=== PATIENT | female | born 1970 | race Caucasian/White ===

== ENCOUNTER 2019-05-22 20:35 | Inpatient (IN) ==
[2019-05-22 21:32] LABS: Basophils # 0.2 10*3/uL (0.0-0.2); Basophils % 1.1 % (0.0-0.8); Eosinophils # 0.6 10*3/uL (0.0-0.87); Eosinophils % 3.1 % (0.00-10.9); Hematocrit 47.1 VOL% (35.7-47.0); Hemoglobin 15.1 GM/DL (12.0-16.0); Immature Granulocytes % 8.1 %; Immature Granulocytes Absolute 1.48 #; Lymphocytes # 5.9 10*3/uL (1.4-4.0); Lymphocytes % 32.1 % (21.3-54.2); Mean Corpuscular HGB Conc 32.1 GM/DL (32-36); Mean Corpuscular Volume 94.4 FL (87-102); Mean Platelet Volume 10.9 FL (9.6-12.0); Monocytes % 2.8 % (1.7-12.7); Neutrophils % 52.8 % (38.7-73.9); Platelet Count 291 T/CUMM (130-400); Red Blood Count 4.99 MC/CUMM (3.8-5.5); Red Cell Distribution Width 12.2 % (9.3-17.3); White Blood Count 18.3 T/CUMM (4-12)
[2019-05-22 21:41] LABS: PT Patient Result 11.2 SECS (9.6-12.2); Partial Thromboplastin Time 28.8 SECS (20.8-36.0)
[2019-05-22 21:49] LABS: ABG Base Excess -12.2 MMOL/L (-2.5-2.5); ABG HCO3 15.3 MMOL/L (20-26); ABG PCO2 43.7 MM HG (35-48); ABG TCO2 14.5 MMOL/L (23-27)
[2019-05-22 21:55] LABS: Alanine Aminotransferase 94 U/L (13-56); Albumin 2.7 G/DL (3.4-5.0); Alkaline Phosphatase 203 U/L (45-117); Aspartate Amino Transferase 152 U/L (0-37); Blood Urea Nitrogen 13 MG/DL (7-18); Calcium 9.3 MG/DL (8.5-10.1); Estimated Glom Filtration Rate 53 ML/MIN; Glucose 345 MG/DL (74-106); Osmolality,Calculated 294.3 MOS/KG (273-304); Total Protein 6.4 G/DL (6.4-8.3)
[2019-05-22 21:58] LABS: Band Neutrophils 8 % (0-10); Eosinophils 3 % (0-10); Lymphocytes 29 % (20-55); Platelet Estimate Adequate; Segmented Neutrophils 59 % (50-85); Total Cells Counted 100
[2019-05-22 22:00] LABS: Apearance,Urine CLOUDY (Clear); Bacteria,Urine Occasional /HPF (Few); Bilirubin,Urine Negative (Negative); Blood, Urine Moderate mg/dL (Negative); Glucose,Urine (UA) >=500 mg/dL (Negative); Hyaline Casts,Urine 1 /LPF (0-3); Ketones,Urine Negative (Negative); Nitrite,Urine Negative (Negative); Protein,Urine >=500 MG/DL; RBC,Urine 149 /HPF (0-4); Squamous Epithelial Cell,Urine Occasional /HPF (0-10); Urine Color Yellow (Yellow); Urine Urobilinogen < 2.0 EU/DL (0.2-1.0); WBC,Urine 22 /HPF (0-6)
[2019-05-22 22:05] LABS: Barbiturates Screen,Urine Negative (Negative); Benzodiazepines Screen,Urine Positive (Negative); Cannabinoid Screen,Urine Negative (Negative); Opiate Screen,Urine Negative (Negative); Phencyclidine Screen,Urine Negative (Negative)
[2019-05-22] MEDS ORDERED: PIPERACILLIN/TAZOBACTAM 3,375 MG in SODIUM CHLORIDE 0.9% 100 ML IV STA (22:10)
[2019-05-22 22:47] LABS: Allen Test Positive; Pt O2 Delivery Device Ventilator
[2019-05-22 22:48] LABS: ABG Base Excess -6.3 MMOL/L (-2.5-2.5); ABG HCO3 19.4 MMOL/L (20-26); ABG Oxygen Saturation 96.8 % (95-100); ABG PCO2 43.3 MM HG (35-48); ABG PH 7.284 (7.35-7.45); ABG PO2 97.8 MM HG (80-95); ABG TCO2 17.7 MMOL/L (23-27)
[2019-05-22 22:53] LABS: ABG PH 7.184 (7.35-7.45)
[2019-05-22 23:53] LABS: Troponin I 2.35 NG/ML (0.00-0.045)
[2019-05-23] MEDS: SODIUM CHLORIDE 0.9% 1,000 ML IV SCH ×2 (00:20→16:40)
[2019-05-23] MEDS ORDERED: ONDANSETRON 4 MG/2 ML VIAL IV PRN (00:50)
[2019-05-23] MEDS ORDERED: LORazepam 2 MG/1 ML VIAL IV ONE (01:35)
[2019-05-23] MEDS ORDERED: LORazepam 2 MG/1 ML VIAL ONE (01:35)
[2019-05-23] MEDS ORDERED: MAGNESIUM SULF RIDER 4 GM in PREMIX 1 EACH IV PRN (01:53)
[2019-05-23] MEDS ORDERED: SODIUM CHLORIDE IV ONE ×2 (02:13→03:00)
[2019-05-23] MEDS ORDERED: FOSPHENYTOIN IV ONE ×2 (02:13→03:00)
[2019-05-23] MEDS ORDERED: [UNRECOGNIZED DRUG - OTHER] IV ONE (02:13)
[2019-05-23] MEDS ORDERED: [UNRECOGNIZED DRUG - OTHER] IV ONE (03:00)
[2019-05-23 03:22] LABS: Basophils # 0.1 10*3/uL (0.0-0.2); Basophils % 0.3 % (0.0-0.8); Hematocrit 43.9 VOL% (35.7-47.0); Immature Granulocytes % 1.2 %; Immature Granulocytes Absolute 0.24 #; Lymphocytes # 0.7 10*3/uL (1.4-4.0); Lymphocytes % 3.3 % (21.3-54.2); Mean Corpuscular HGB Conc 34.2 GM/DL (32-36); Mean Corpuscular Volume 89.4 FL (87-102); Mean Platelet Volume 10.8 FL (9.6-12.0); Monocytes % 4.8 % (1.7-12.7); Neutrophils % 90.4 % (38.7-73.9); Platelet Count 257 T/CUMM (130-400); Red Blood Count 4.91 MC/CUMM (3.8-5.5); Red Cell Distribution Width 12.2 % (9.3-17.3); White Blood Count 20.1 T/CUMM (4-12)
[2019-05-23 03:43] LABS: Band Neutrophils 1 % (0-10); Lymphocytes 1 % (20-55); Platelet Estimate Normal; Segmented Neutrophils 93 % (50-85); Total Cells Counted 100
[2019-05-23 03:44] LABS: Microcytosis Slight
[2019-05-23 03:49] LABS: Albumin 3.1 G/DL (3.4-5.0); Bilirubin,Total 0.5 MG/DL (0.2-1.0); Calcium 8.6 MG/DL (8.5-10.1); Osmolality,Calculated 288.1 MOS/KG (273-304); Risk Ratio 2.93; Thyroid Stimulating Hormone 1.14 uIU/ml (0.358-3.74); Total Protein 6.9 G/DL (6.4-8.3); VLDL CHOLESTEROL 34.8 MG/DL
[2019-05-23] MEDS: ENOXAPARIN 100 MG/ML SYRINGE SUBCUT SCH ×2 (04:35→16:49)
[2019-05-23 04:54] LABS: ABG Base Excess -3.7 MMOL/L (-2.5-2.5); ABG HCO3 21.4 MMOL/L (20-26); ABG Oxygen Saturation 99.2 % (95-100); ABG PCO2 41.2 MM HG (35-48); ABG PH 7.336 (7.35-7.45); ABG TCO2 18.9 MMOL/L (23-27)
[2019-05-23] MEDS: MAGNESIUM SULF RIDER 2 GM in PREMIX 1 EACH IV PRN (06:33)
[2019-05-23] MEDS: POTASSIUM CHLORIDE RIDER 20 MEQ in PREMIX 1 EACH IV PRN (06:35)
[2019-05-23] MEDS: PIPERACILLIN/TAZOBACTAM 3,375 MG in SODIUM CHLORIDE 0.9% 100 ML IV SCH ×3 (06:47→21:39)
[2019-05-23] MEDS: PANTOPRAZOLE 40 MG VIAL IV SCH (08:44)
[2019-05-23] MEDS: POTASSIUM CHLORIDE RIDER 10 MEQ in PREMIX 1 EACH IV PRN (08:46)
[2019-05-23] MEDS ORDERED: FLUoxetine 10 MG CAPSULE PO SCH (09:00)
[2019-05-23] MEDS ORDERED: CLOPIDOGREL 300 MG TABLET PO ONE (11:10)
[2019-05-23] MEDS ORDERED: ASPIRIN 325 MG TABLET PO ONE (11:12)
[2019-05-23] MEDS ORDERED: DOPamine 800 MG/250 ML PREMIX IV PRN (11:22)
[2019-05-23] MEDS ORDERED: NOREPINEPHRINE 8 MG in SODIUM CHLORIDE 0.9% 242 ML IV PRN (11:22)
[2019-05-23] MEDS ORDERED: DEXTROSE 10% 1,000 ML BAG IV PRN (11:28)
[2019-05-23] MEDS ORDERED: GLUCAGON 1 MG VIAL IM PRN (11:28)
[2019-05-23] MEDS ORDERED: ASPIRIN 325 MG TABLET PO SCH (11:30)
[2019-05-23] MEDS: fentaNYL INJ 1,250 MCG in SODIUM CHLORIDE 0.9% 225 ML IV PRN ×2 (11:48→20:18)
[2019-05-23] MEDS: CISATRACURIUM 200 MG in SODIUM CHLORIDE 0.9% 180 ML IV SCH (11:48)
[2019-05-23] MEDS ORDERED: METOPROLOL TARTRATE 5 MG/5 ML VIAL IV SCH (12:00)
[2019-05-23 12:12] LABS: PT Patient Result 11.3 SECS (9.6-12.2); Partial Thromboplastin Time 32.2 SECS (20.8-36.0)
[2019-05-23] MEDS: INSULIN REGULAR 100 UNIT/ML IV SCH ×3 (12:20→20:21)
[2019-05-23 12:25] LABS: Bilirubin,Total 0.5 MG/DL (0.2-1.0); Calcium 8.3 MG/DL (8.5-10.1); Osmolality,Calculated 283.4 MOS/KG (273-304); Total Protein 6.4 G/DL (6.4-8.3)
[2019-05-23] MEDS: PHENYTOIN 100 MG/2 ML VIAL IV SCH ×2 (12:26→21:09)
[2019-05-23] MEDS: MINERAL OIL/PETROLATUM OPH OINT 3.5 GM TUBE BOTH EYES SCH ×2 (14:45→21:11)
[2019-05-23 17:43] LABS: Basophils # 0.1 10*3/uL (0.0-0.2); Basophils % 0.3 % (0.0-0.8); Eosinophils # 0.1 10*3/uL (0.0-0.87); Eosinophils % 0.4 % (0.00-10.9); Hematocrit 43.4 VOL% (35.7-47.0); Hemoglobin 14.6 GM/DL (12.0-16.0); Immature Granulocytes % 0.6 %; Lymphocytes # 2.4 10*3/uL (1.4-4.0); Lymphocytes % 13.5 % (21.3-54.2); Mean Corpuscular HGB Conc 33.6 GM/DL (32-36); Mean Platelet Volume 10.5 FL (9.6-12.0); Monocytes % 7.2 % (1.7-12.7); Platelet Count 279 T/CUMM (130-400); Red Blood Count 4.82 MC/CUMM (3.8-5.5); Red Cell Distribution Width 12.8 % (9.3-17.3); White Blood Count 17.6 T/CUMM (4-12)
[2019-05-23 17:48] LABS: PT Patient Result 11.2 SECS (9.6-12.2); Partial Thromboplastin Time 30.1 SECS (20.8-36.0)
[2019-05-23 17:52] LABS: Calcium 7.6 MG/DL (8.5-10.1); Osmolality,Calculated 285.3 MOS/KG (273-304)
[2019-05-23 17:58] LABS: CKMB % 4.4 %
[2019-05-23 18:00] LABS: Troponin I 4.28 NG/ML (0.00-0.045)
[2019-05-24 00:10] LABS: Troponin I 2.73 NG/ML (0.00-0.045)
[2019-05-24 00:30] LABS: INR 1.1; PT Patient Result 11.6 SECS (9.6-12.2); Partial Thromboplastin Time 35.5 SECS (20.8-36.0)
[2019-05-24 01:14] LABS: Calcium 7.4 MG/DL (8.5-10.1)
[2019-05-24] MEDS: POTASSIUM CHLORIDE RIDER 20 MEQ in PREMIX 1 EACH IV PRN ×2 (01:27→07:12)
[2019-05-24] MEDS: INSULIN REGULAR 100 UNIT/ML IV SCH ×8 (01:28→23:50)
[2019-05-24 01:33] LABS: Basophils % 0.4 % (0.0-0.8); Eosinophils # 0.2 10*3/uL (0.0-0.87); Eosinophils % 1.5 % (0.00-10.9); Hematocrit 39.2 VOL% (35.7-47.0); Hemoglobin 13.2 GM/DL (12.0-16.0); Immature Granulocytes % 0.6 %; Immature Granulocytes Absolute 0.07 #; Lymphocytes # 1.8 10*3/uL (1.4-4.0); Lymphocytes % 15.6 % (21.3-54.2); Mean Corpuscular HGB Conc 33.7 GM/DL (32-36); Mean Corpuscular Volume 90.1 FL (87-102); Mean Platelet Volume 11.4 FL (9.6-12.0); Monocytes % 8.1 % (1.7-12.7); Neutrophils % 73.8 % (38.7-73.9); Red Blood Count 4.35 MC/CUMM (3.8-5.5); Red Cell Distribution Width 12.7 % (9.3-17.3); White Blood Count 11.3 T/CUMM (4-12)
[2019-05-24 01:37] LABS: Platelet Count 186 T/CUMM (130-400)
[2019-05-24] MEDS: CISATRACURIUM 200 MG in SODIUM CHLORIDE 0.9% 180 ML IV SCH ×3 (01:43→18:12)
[2019-05-24] MEDS: SODIUM CHLORIDE 0.9% 1,000 ML IV SCH ×4 (01:43→21:28)
[2019-05-24] MEDS: fentaNYL INJ 1,250 MCG in SODIUM CHLORIDE 0.9% 225 ML IV PRN ×4 (02:33→17:02)
[2019-05-24] MEDS: ENOXAPARIN 100 MG/ML SYRINGE SUBCUT SCH ×2 (03:58→16:47)
[2019-05-24 04:19] LABS: Apearance,Urine CLOUDY (Clear); Bacteria,Urine Occasional /HPF (Few); Bilirubin,Urine Negative (Negative); Blood, Urine Small mg/dL (Negative); Glucose,Urine (UA) 50 mg/dL (Negative); Granular Casts,Urine 7 /LPF (0-1); Hyaline Casts,Urine 7 /LPF (0-3); Ketones,Urine Negative (Negative); Mucus,Urine Occasional /LPF (Occasional); Nitrite,Urine Negative (Negative); Protein,Urine 30 MG/DL; RBC,Urine 10 /HPF (0-4); Squamous Epithelial Cell,Urine Occasional /HPF (0-10); Urine Color Yellow (Yellow); Urine Specific Gravity 1.029 (1.001-1.035); Urine Urobilinogen < 2.0 EU/DL (0.2-1.0); WBC,Urine 12 /HPF (0-6)
[2019-05-24 04:29] LABS: ABG Base Excess -2.7 MMOL/L (-2.5-2.5); ABG HCO3 22.2 MMOL/L (20-26); ABG Oxygen Saturation 99.6 % (95-100); ABG PCO2 34.8 MM HG (35-48); ABG PH 7.398 (7.35-7.45); ABG TCO2 18.7 MMOL/L (23-27)
[2019-05-24 04:42] LABS: Basophils % 0.3 % (0.0-0.8); Eosinophils # 0.2 10*3/uL (0.0-0.87); Eosinophils % 2.3 % (0.00-10.9); Hematocrit 38.1 VOL% (35.7-47.0); Hemoglobin 12.8 GM/DL (12.0-16.0); Immature Granulocytes % 0.6 %; Immature Granulocytes Absolute 0.05 #; Lymphocytes # 1.6 10*3/uL (1.4-4.0); Lymphocytes % 17.3 % (21.3-54.2); Mean Corpuscular HGB Conc 33.6 GM/DL (32-36); Mean Corpuscular Volume 90.1 FL (87-102); Mean Platelet Volume 11.4 FL (9.6-12.0); Monocytes % 7.2 % (1.7-12.7); Neutrophils % 72.3 % (38.7-73.9); Platelet Count 151 T/CUMM (130-400); Red Blood Count 4.23 MC/CUMM (3.8-5.5); Red Cell Distribution Width 12.7 % (9.3-17.3); White Blood Count 9.1 T/CUMM (4-12)
[2019-05-24 05:13] LABS: Albumin 2.4 G/DL (3.4-5.0); Bilirubin,Total 0.5 MG/DL (0.2-1.0); Calcium 7.4 MG/DL (8.5-10.1); Osmolality,Calculated 289.7 MOS/KG (273-304); Total Protein 5.6 G/DL (6.4-8.3)
[2019-05-24] MEDS: PHENYTOIN 100 MG/2 ML VIAL IV SCH ×3 (05:16→20:32)
[2019-05-24] MEDS: PIPERACILLIN/TAZOBACTAM 3,375 MG in SODIUM CHLORIDE 0.9% 100 ML IV SCH ×3 (05:29→21:32)
[2019-05-24 06:20] LABS: INR 1.1; PT Patient Result 11.9 SECS (9.6-12.2); Partial Thromboplastin Time 39.5 SECS (20.8-36.0)
[2019-05-24 06:26] LABS: Basophils % 0.3 % (0.0-0.8); Eosinophils # 0.3 10*3/uL (0.0-0.87); Eosinophils % 3.2 % (0.00-10.9); Hematocrit 36.7 VOL% (35.7-47.0); Hemoglobin 12.6 GM/DL (12.0-16.0); Immature Granulocytes % 0.5 %; Immature Granulocytes Absolute 0.04 #; Lymphocytes # 1.6 10*3/uL (1.4-4.0); Lymphocytes % 18.2 % (21.3-54.2); Mean Corpuscular HGB Conc 34.3 GM/DL (32-36); Mean Corpuscular Volume 89.7 FL (87-102); Mean Platelet Volume 10.9 FL (9.6-12.0); Monocytes % 6.8 % (1.7-12.7); Platelet Count 171 T/CUMM (130-400); Red Blood Count 4.09 MC/CUMM (3.8-5.5); Red Cell Distribution Width 12.8 % (9.3-17.3); White Blood Count 8.6 T/CUMM (4-12)
[2019-05-24 06:39] LABS: CKMB % 5.2 %
[2019-05-24 06:41] LABS: Troponin I 2.3 NG/ML (0.00-0.045)
[2019-05-24 06:56] LABS: Calcium 7.5 MG/DL (8.5-10.1); Osmolality,Calculated 286.1 MOS/KG (273-304)
[2019-05-24] MEDS ORDERED: ASPIRIN 325 MG TABLET PO SCH (09:00)
[2019-05-24] MEDS: CLOPIDOGREL 75 MG TABLET PO SCH (09:13)
[2019-05-24] MEDS: ASPIRIN CHEW 81 MG TABLET PO SCH (09:13)
[2019-05-24] MEDS: PANTOPRAZOLE 40 MG VIAL IV SCH (09:18)
[2019-05-24] MEDS: MINERAL OIL/PETROLATUM OPH OINT 3.5 GM TUBE BOTH EYES SCH ×3 (09:22→20:38)
[2019-05-24 11:40] LABS: Basophils % 0.5 % (0.0-0.8); Eosinophils # 0.4 10*3/uL (0.0-0.87); Eosinophils % 4.1 % (0.00-10.9); Hematocrit 37.6 VOL% (35.7-47.0); Hemoglobin 12.5 GM/DL (12.0-16.0); Immature Granulocytes % 0.5 %; Immature Granulocytes Absolute 0.04 #; Lymphocytes # 1.3 10*3/uL (1.4-4.0); Lymphocytes % 14.6 % (21.3-54.2); Mean Corpuscular HGB Conc 33.2 GM/DL (32-36); Mean Platelet Volume 10.4 FL (9.6-12.0); Neutrophils % 73.3 % (38.7-73.9); Platelet Count 192 T/CUMM (130-400); Red Blood Count 4.13 MC/CUMM (3.8-5.5); Red Cell Distribution Width 12.8 % (9.3-17.3); White Blood Count 8.6 T/CUMM (4-12)
[2019-05-24 11:49] LABS: INR 1.1; PT Patient Result 11.4 SECS (9.6-12.2)
[2019-05-24 11:56] LABS: Partial Thromboplastin Time 41.9 SECS (20.8-36.0)
[2019-05-24 12:06] LABS: Calcium 7.3 MG/DL (8.5-10.1); Osmolality,Calculated 287.8 MOS/KG (273-304)
[2019-05-24] MEDS ORDERED: SODIUM CHLORIDE 0.9% 700 ML IV ONE (13:54)
[2019-05-24 17:34] LABS: Basophils # 0.1 10*3/uL (0.0-0.2); Basophils % 0.6 % (0.0-0.8); Eosinophils # 0.5 10*3/uL (0.0-0.87); Eosinophils % 4.4 % (0.00-10.9); Hematocrit 38.3 VOL% (35.7-47.0); Hemoglobin 12.8 GM/DL (12.0-16.0); Immature Granulocytes % 0.6 %; Immature Granulocytes Absolute 0.07 #; Lymphocytes # 1.5 10*3/uL (1.4-4.0); Lymphocytes % 13.3 % (21.3-54.2); Mean Corpuscular HGB Conc 33.4 GM/DL (32-36); Mean Platelet Volume 10.9 FL (9.6-12.0); Monocytes % 7.2 % (1.7-12.7); Neutrophils % 73.9 % (38.7-73.9); Platelet Count 230 T/CUMM (130-400); Red Blood Count 4.21 MC/CUMM (3.8-5.5); Red Cell Distribution Width 12.9 % (9.3-17.3); White Blood Count 10.9 T/CUMM (4-12)
[2019-05-24 17:40] LABS: Calcium 7.4 MG/DL (8.5-10.1); Osmolality,Calculated 285.1 MOS/KG (273-304)
[2019-05-24 17:41] LABS: INR 1.1; PT Patient Result 11.5 SECS (9.6-12.2)
[2019-05-24 17:45] LABS: Partial Thromboplastin Time 41.2 SECS (20.8-36.0)
[2019-05-24] MEDS ORDERED: SODIUM CHLORIDE 0.9% 250 ML IV ONE (18:00)
[2019-05-24] MEDS: fentaNYL INJ 2,500 MCG in SODIUM CHLORIDE 0.9% 500 ML IV PRN (20:30)
[2019-05-24] MEDS ORDERED: GLUCAGON 1 MG VIAL IM PRN (21:37)
[2019-05-24] MEDS ORDERED: DEXTROSE 50% 25 GM/50 ML VIAL IV PRN (21:37)
[2019-05-25 00:10] LABS: Basophils % 0.4 % (0.0-0.8); Eosinophils # 0.4 10*3/uL (0.0-0.87); Eosinophils % 3.4 % (0.00-10.9); Hematocrit 37.4 VOL% (35.7-47.0); Hemoglobin 12.3 GM/DL (12.0-16.0); Immature Granulocytes % 0.6 %; Immature Granulocytes Absolute 0.06 #; Lymphocytes % 9.3 % (21.3-54.2); Mean Corpuscular HGB Conc 32.9 GM/DL (32-36); Mean Corpuscular Volume 92.8 FL (87-102); Mean Platelet Volume 10.8 FL (9.6-12.0); Monocytes % 5.6 % (1.7-12.7); Neutrophils % 80.7 % (38.7-73.9); Platelet Count 205 T/CUMM (130-400); Red Blood Count 4.03 MC/CUMM (3.8-5.5); Red Cell Distribution Width 13.1 % (9.3-17.3); White Blood Count 10.3 T/CUMM (4-12)
[2019-05-25 00:17] LABS: INR 1.1; PT Patient Result 11.4 SECS (9.6-12.2)
[2019-05-25 00:24] LABS: Osmolality,Calculated 292.6 MOS/KG (273-304)
[2019-05-25] MEDS ORDERED: MAGNESIUM SULF RIDER 1 GM in PREMIX 1 EACH IV ONE ×2 (00:34→13:24)
[2019-05-25] MEDS: INSULIN REGULAR 100 UNIT/ML IV SCH ×3 (02:10→07:10)
[2019-05-25] MEDS: fentaNYL INJ 2,500 MCG in SODIUM CHLORIDE 0.9% 500 ML IV PRN (03:43)
[2019-05-25] MEDS: ENOXAPARIN 100 MG/ML SYRINGE SUBCUT SCH ×2 (04:00→16:58)
[2019-05-25 04:20] LABS: ABG Base Excess -7.7 MMOL/L (-2.5-2.5); ABG HCO3 18.3 MMOL/L (20-26); ABG Oxygen Saturation 97.8 % (95-100); ABG PCO2 42.1 MM HG (35-48); ABG PH 7.266 (7.35-7.45); ABG TCO2 17.2 MMOL/L (23-27)
[2019-05-25] MEDS: PHENYTOIN 100 MG/2 ML VIAL IV SCH ×3 (04:25→21:10)
[2019-05-25] MEDS ORDERED: SODIUM BICARBONATE 50 MEQ/50 ML VIAL IV ONE ×2 (04:32→04:42)
[2019-05-25] MEDS: PIPERACILLIN/TAZOBACTAM 3,375 MG in SODIUM CHLORIDE 0.9% 100 ML IV SCH ×3 (05:26→21:11)
[2019-05-25] MEDS: SODIUM CHLORIDE 0.9% 1,000 ML IV SCH ×4 (05:32→21:43)
[2019-05-25] MEDS ORDERED: GLUCAGON 1 MG VIAL IM PRN ×2 (06:16→06:35)
[2019-05-25] MEDS ORDERED: DEXTROSE 50% 25 GM/50 ML VIAL IV PRN ×2 (06:16→06:35)
[2019-05-25 06:34] LABS: ABG Base Excess -6.3 MMOL/L (-2.5-2.5); ABG HCO3 19.9 MMOL/L (20-26); ABG Oxygen Saturation 96.6 % (95-100); ABG PCO2 41.8 MM HG (35-48); ABG PH 7.295 (7.35-7.45); ABG PO2 95.6 MM HG (80-95); ABG TCO2 21.2 MMOL/L (23-27)
[2019-05-25 06:45] LABS: Basophils % 0.3 % (0.0-0.8); Eosinophils # 0.3 10*3/uL (0.0-0.87); Eosinophils % 3.3 % (0.00-10.9); Hemoglobin 11.9 GM/DL (12.0-16.0); Immature Granulocytes % 0.4 %; Immature Granulocytes Absolute 0.04 #; Lymphocytes # 0.8 10*3/uL (1.4-4.0); Lymphocytes % 9.3 % (21.3-54.2); Mean Corpuscular HGB Conc 33.1 GM/DL (32-36); Mean Corpuscular Volume 92.5 FL (87-102); Mean Platelet Volume 10.6 FL (9.6-12.0); Neutrophils % 81.7 % (38.7-73.9); Platelet Count 184 T/CUMM (130-400); Red Blood Count 3.89 MC/CUMM (3.8-5.5); Red Cell Distribution Width 13.2 % (9.3-17.3); White Blood Count 9.1 T/CUMM (4-12)
[2019-05-25 06:49] LABS: PT Patient Result 10.9 SECS (9.6-12.2); Partial Thromboplastin Time 40.8 SECS (20.8-36.0)
[2019-05-25 07:01] LABS: Bilirubin,Total 0.4 MG/DL (0.2-1.0); Calcium 7.2 MG/DL (8.5-10.1); Osmolality,Calculated 290.6 MOS/KG (273-304); Total Protein 5.2 G/DL (6.4-8.3)
[2019-05-25] MEDS: METOPROLOL TARTRATE 5 MG/5 ML VIAL IV SCH ×3 (07:34→17:16)
[2019-05-25 08:05] LABS: CKMB % 5.3 %
[2019-05-25 08:06] LABS: Troponin I 1.35 NG/ML (0.00-0.045)
[2019-05-25] MEDS: INSULIN REGULAR 100 UNIT/ML SUBCUT SCH ×4 (08:37→20:42)
[2019-05-25] MEDS ORDERED: FUROSEMIDE 40 MG/4 ML VIAL IV ONE (09:00)
[2019-05-25] MEDS: PANTOPRAZOLE 40 MG VIAL IV SCH (09:33)
[2019-05-25] MEDS: ASPIRIN CHEW 81 MG TABLET PO SCH (09:44)
[2019-05-25] MEDS: MINERAL OIL/PETROLATUM OPH OINT 3.5 GM TUBE BOTH EYES SCH ×3 (09:44→21:11)
[2019-05-25] MEDS: CLOPIDOGREL 75 MG TABLET PO SCH (09:44)
[2019-05-25] MEDS ORDERED: INSULIN REGULAR 100 UNIT/ML IV SCH (10:00)
[2019-05-25] MEDS ORDERED: INSULIN REGULAR 100 UNIT/ML SUBCUT SCH (10:00)
[2019-05-25 12:46] LABS: Calcium 7.7 MG/DL (8.5-10.1); Osmolality,Calculated 286.8 MOS/KG (273-304)
[2019-05-26] MEDS: METOPROLOL TARTRATE 5 MG/5 ML VIAL IV SCH ×4 (00:17→18:29)
[2019-05-26] MEDS: INSULIN REGULAR 100 UNIT/ML SUBCUT SCH ×6 (00:17→21:10)
[2019-05-26] MEDS ORDERED: NOREPINEPHRINE 8 MG in SODIUM CHLORIDE 0.9% 242 ML IV PRN (03:34)
[2019-05-26 03:36] LABS: ABG Base Excess -2.9 MMOL/L (-2.5-2.5); ABG HCO3 21.2 MMOL/L (20-26); ABG Oxygen Saturation 97.5 % (95-100); ABG PCO2 34.5 MM HG (35-48); ABG PH 7.406 (7.35-7.45); ABG PO2 98.3 MM HG (80-95); ABG TCO2 22.2 MMOL/L (23-27)
[2019-05-26 03:48] LABS: Basophils % 0.3 % (0.0-0.8); Eosinophils # 0.1 10*3/uL (0.0-0.87); Eosinophils % 1.4 % (0.00-10.9); Hematocrit 33.8 VOL% (35.7-47.0); Immature Granulocytes % 0.3 %; Immature Granulocytes Absolute 0.03 #; Mean Corpuscular HGB Conc 32.5 GM/DL (32-36); Mean Corpuscular Volume 92.6 FL (87-102); Mean Platelet Volume 10.7 FL (9.6-12.0); Monocytes % 6.9 % (1.7-12.7); Neutrophils % 80.1 % (38.7-73.9); Platelet Count 186 T/CUMM (130-400); Red Blood Count 3.65 MC/CUMM (3.8-5.5); Red Cell Distribution Width 13.1 % (9.3-17.3); White Blood Count 8.8 T/CUMM (4-12)
[2019-05-26 04:08] LABS: Albumin 2.1 G/DL (3.4-5.0); Bilirubin,Total 0.7 MG/DL (0.2-1.0); Calcium 7.7 MG/DL (8.5-10.1); Total Protein 5.5 G/DL (6.4-8.3)
[2019-05-26] MEDS: ENOXAPARIN 100 MG/ML SYRINGE SUBCUT SCH ×2 (04:08→16:57)
[2019-05-26] MEDS: PHENYTOIN 100 MG/2 ML VIAL IV SCH ×3 (04:08→21:41)
[2019-05-26] MEDS: POTASSIUM CHLORIDE RIDER 20 MEQ in PREMIX 1 EACH IV PRN ×2 (04:27→06:09)
[2019-05-26] MEDS: MAGNESIUM SULF RIDER 2 GM in PREMIX 1 EACH IV PRN (04:27)
[2019-05-26] MEDS ORDERED: SODIUM CHLORIDE 0.9% 500 ML IV ONE (05:06)
[2019-05-26] MEDS: SODIUM CHLORIDE 0.9% 1,000 ML IV SCH ×5 (05:21→22:39)
[2019-05-26] MEDS: PIPERACILLIN/TAZOBACTAM 3,375 MG in SODIUM CHLORIDE 0.9% 100 ML IV SCH ×3 (06:24→22:27)
[2019-05-26] MEDS ORDERED: FUROSEMIDE 40 MG/4 ML VIAL IV ONE (08:26)
[2019-05-26] MEDS: PANTOPRAZOLE 40 MG VIAL IV SCH (10:24)
[2019-05-26] MEDS: CLOPIDOGREL 75 MG TABLET PO SCH (10:40)
[2019-05-26] MEDS: ASPIRIN CHEW 81 MG TABLET PO SCH (10:40)
[2019-05-26] MEDS: MINERAL OIL/PETROLATUM OPH OINT 3.5 GM TUBE BOTH EYES SCH ×3 (10:40→21:42)
[2019-05-27] MEDS: INSULIN REGULAR 100 UNIT/ML SUBCUT SCH ×7 (00:37→23:54)
[2019-05-27] MEDS: METOPROLOL TARTRATE 5 MG/5 ML VIAL IV SCH ×5 (00:38→23:55)
[2019-05-27 05:15] LABS: ABG Base Excess 1.1 MMOL/L (-2.5-2.5); ABG HCO3 25.6 MMOL/L (20-26); ABG Oxygen Saturation 97.6 % (95-100); ABG PCO2 40.5 MM HG (35-48); ABG PH 7.419 (7.35-7.45); ABG PO2 107.5 MM HG (80-95); ABG TCO2 26.9 MMOL/L (23-27)
[2019-05-27 05:15] LABS: Basophils % 0.3 % (0.0-0.8); Eosinophils # 0.1 10*3/uL (0.0-0.87); Eosinophils % 1.4 % (0.00-10.9); Hematocrit 32.5 VOL% (35.7-47.0); Hemoglobin 10.6 GM/DL (12.0-16.0); Immature Granulocytes % 0.3 %; Immature Granulocytes Absolute 0.03 #; Lymphocytes # 0.9 10*3/uL (1.4-4.0); Lymphocytes % 10.8 % (21.3-54.2); Mean Corpuscular HGB Conc 32.6 GM/DL (32-36); Mean Corpuscular Volume 92.3 FL (87-102); Mean Platelet Volume 10.6 FL (9.6-12.0); Monocytes % 7.6 % (1.7-12.7); Neutrophils % 79.6 % (38.7-73.9); Platelet Count 182 T/CUMM (130-400); Red Blood Count 3.52 MC/CUMM (3.8-5.5); Red Cell Distribution Width 13.1 % (9.3-17.3); White Blood Count 8.6 T/CUMM (4-12)
[2019-05-27] MEDS: ENOXAPARIN 100 MG/ML SYRINGE SUBCUT SCH ×2 (05:26→15:35)
[2019-05-27] MEDS: PHENYTOIN 100 MG/2 ML VIAL IV SCH ×3 (05:27→21:20)
[2019-05-27 05:36] LABS: Calcium 8.2 MG/DL (8.5-10.1); Osmolality,Calculated 286.1 MOS/KG (273-304)
[2019-05-27] MEDS: SODIUM CHLORIDE 0.9% 1,000 ML IV SCH ×5 (05:45→22:22)
[2019-05-27 05:51] LABS: Prealbumin 9.1 MG/DL (20-40)
[2019-05-27] MEDS: POTASSIUM CHLORIDE RIDER 20 MEQ in PREMIX 1 EACH IV PRN (05:51)
[2019-05-27] MEDS: PIPERACILLIN/TAZOBACTAM 3,375 MG in SODIUM CHLORIDE 0.9% 100 ML IV SCH ×3 (06:28→21:20)
[2019-05-27] MEDS: CLOPIDOGREL 75 MG TABLET PO SCH (09:34)
[2019-05-27] MEDS: ASPIRIN CHEW 81 MG TABLET PO SCH (09:34)
[2019-05-27] MEDS: PANTOPRAZOLE 40 MG VIAL IV SCH (09:40)
[2019-05-27] MEDS: MINERAL OIL/PETROLATUM OPH OINT 3.5 GM TUBE BOTH EYES SCH ×3 (09:45→21:19)
[2019-05-27] MEDS ORDERED: LACTULOSE 20 GM/30 ML UDCUP PO ONE (10:23)
[2019-05-27] MEDS: POTASSIUM CHLORIDE RIDER 10 MEQ in PREMIX 1 EACH IV PRN (10:32)
[2019-05-27] MEDS: hydrALAZINE 20 MG/1 ML VIAL IV PRN (20:33)
[2019-05-27] MEDS: LACTULOSE 20 GM/30 ML UDCUP PO SCH ×2 (21:12→21:34)
[2019-05-28] MEDS: INSULIN REGULAR 100 UNIT/ML SUBCUT SCH ×5 (04:00→20:33)
[2019-05-28] MEDS: ENOXAPARIN 100 MG/ML SYRINGE SUBCUT SCH ×2 (04:29→16:32)
[2019-05-28] MEDS: PHENYTOIN 100 MG/2 ML VIAL IV SCH ×3 (04:29→21:14)
[2019-05-28 04:31] LABS: Basophils % 0.5 % (0.0-0.8); Eosinophils # 0.4 10*3/uL (0.0-0.87); Eosinophils % 5.1 % (0.00-10.9); Hematocrit 30.6 VOL% (35.7-47.0); Immature Granulocytes % 0.9 %; Immature Granulocytes Absolute 0.08 #; Lymphocytes # 1.3 10*3/uL (1.4-4.0); Lymphocytes % 15.7 % (21.3-54.2); Mean Corpuscular HGB Conc 32.7 GM/DL (32-36); Mean Corpuscular Volume 91.9 FL (87-102); Mean Platelet Volume 10.9 FL (9.6-12.0); Monocytes % 7.5 % (1.7-12.7); Neutrophils % 70.3 % (38.7-73.9); Platelet Count 165 T/CUMM (130-400); Red Blood Count 3.33 MC/CUMM (3.8-5.5); Red Cell Distribution Width 13.1 % (9.3-17.3); White Blood Count 8.5 T/CUMM (4-12)
[2019-05-28 04:35] LABS: ABG Base Excess 1.1 MMOL/L (-2.5-2.5); ABG HCO3 25.4 MMOL/L (20-26); ABG Oxygen Saturation 99.2 % (95-100); ABG PCO2 38.7 MM HG (35-48); ABG PH 7.424 (7.35-7.45)
[2019-05-28 04:40] LABS: Calcium 8.3 MG/DL (8.5-10.1); Osmolality,Calculated 290.7 MOS/KG (273-304)
[2019-05-28] MEDS: POTASSIUM CHLORIDE RIDER 20 MEQ in PREMIX 1 EACH IV PRN (04:53)
[2019-05-28] MEDS: SODIUM CHLORIDE 0.9% 1,000 ML IV SCH ×4 (06:14→23:20)
[2019-05-28] MEDS: METOPROLOL TARTRATE 5 MG/5 ML VIAL IV SCH ×4 (06:14→23:21)
[2019-05-28] MEDS: LACTULOSE 20 GM/30 ML UDCUP PO SCH ×2 (06:14→13:24)
[2019-05-28] MEDS: PIPERACILLIN/TAZOBACTAM 3,375 MG in SODIUM CHLORIDE 0.9% 100 ML IV SCH ×3 (06:14→21:15)
[2019-05-28] MEDS ORDERED: NON-FORMULARY MEDICATION (Dextroamphetamine-Amphetamine [Adderall] 20 MG) PO SCH (08:00)
[2019-05-28] MEDS: CLOPIDOGREL 75 MG TABLET PO SCH (08:58)
[2019-05-28] MEDS: ASPIRIN CHEW 81 MG TABLET PO SCH (08:58)
[2019-05-28] MEDS: MINERAL OIL/PETROLATUM OPH OINT 3.5 GM TUBE BOTH EYES SCH ×3 (08:59→21:15)
[2019-05-28] MEDS: PANTOPRAZOLE 40 MG VIAL IV SCH (08:59)
[2019-05-28] MEDS ORDERED: FUROSEMIDE 20 MG/2 ML VIAL IV ONE (13:48)
[2019-05-28 14:23] LABS: Bilirubin,Direct 0.22 MG/DL (0.0-0.20); Bilirubin,Indirect 0.2 MG/DL (0.0-1.0); Bilirubin,Total 0.4 MG/DL (0.2-1.0); Total Protein 5.5 G/DL (6.4-8.3)
[2019-05-28] MEDS: hydroCHLOROthiazide 25 MG TABLET NG SCH (14:56)
[2019-05-28] MEDS: MAGNESIUM SULF RIDER 2 GM in PREMIX 1 EACH IV PRN (14:56)
[2019-05-28] MEDS: lisinopriL 20 MG TABLET NG SCH (14:56)
[2019-05-28] MEDS: MORPHINE 4 MG/1 ML VIAL IV PRN (23:20)
[2019-05-29] MEDS: INSULIN REGULAR 100 UNIT/ML SUBCUT SCH ×6 (00:03→20:34)
[2019-05-29 04:30] LABS: ABG Base Excess 3.1 MMOL/L (-2.5-2.5); ABG HCO3 27.2 MMOL/L (20-26); ABG Oxygen Saturation 98.5 % (95-100); ABG PCO2 41.2 MM HG (35-48); ABG PH 7.435 (7.35-7.45); ABG TCO2 23.8 MMOL/L (23-27)
[2019-05-29 04:39] LABS: Basophils % 0.4 % (0.0-0.8); Eosinophils # 0.5 10*3/uL (0.0-0.87); Eosinophils % 6.7 % (0.00-10.9); Hematocrit 31.4 VOL% (35.7-47.0); Hemoglobin 10.3 GM/DL (12.0-16.0); Immature Granulocytes % 1.6 %; Immature Granulocytes Absolute 0.13 #; Lymphocytes # 1.3 10*3/uL (1.4-4.0); Lymphocytes % 16.1 % (21.3-54.2); Mean Corpuscular HGB Conc 32.8 GM/DL (32-36); Mean Corpuscular Volume 91.8 FL (87-102); Mean Platelet Volume 11.1 FL (9.6-12.0); Monocytes % 7.7 % (1.7-12.7); Neutrophils % 67.5 % (38.7-73.9); Platelet Count 184 T/CUMM (130-400); Red Blood Count 3.42 MC/CUMM (3.8-5.5); Red Cell Distribution Width 13.2 % (9.3-17.3); White Blood Count 7.9 T/CUMM (4-12)
[2019-05-29 04:56] LABS: Bilirubin,Total 0.4 MG/DL (0.2-1.0); Calcium 8.6 MG/DL (8.5-10.1); Osmolality,Calculated 282.3 MOS/KG (273-304); Total Protein 5.8 G/DL (6.4-8.3)
[2019-05-29] MEDS: MAGNESIUM SULF RIDER 2 GM in PREMIX 1 EACH IV PRN (05:30)
[2019-05-29] MEDS: POTASSIUM CHLORIDE RIDER 20 MEQ in PREMIX 1 EACH IV PRN ×3 (05:30→11:13)
[2019-05-29] MEDS: PHENYTOIN 100 MG/2 ML VIAL IV SCH ×3 (05:35→21:56)
[2019-05-29] MEDS: ENOXAPARIN 100 MG/ML SYRINGE SUBCUT SCH ×2 (05:35→16:00)
[2019-05-29] MEDS: METOPROLOL TARTRATE 5 MG/5 ML VIAL IV SCH ×3 (05:36→17:49)
[2019-05-29] MEDS: PIPERACILLIN/TAZOBACTAM 3,375 MG in SODIUM CHLORIDE 0.9% 100 ML IV SCH ×3 (05:36→21:57)
[2019-05-29] MEDS: SODIUM CHLORIDE 0.9% 1,000 ML IV SCH ×2 (07:52→15:14)
[2019-05-29] MEDS: PANTOPRAZOLE 40 MG VIAL IV SCH (07:57)
[2019-05-29] MEDS: hydroCHLOROthiazide 25 MG TABLET NG SCH (08:47)
[2019-05-29] MEDS: lisinopriL 20 MG TABLET NG SCH (08:47)
[2019-05-29] MEDS: ASPIRIN CHEW 81 MG TABLET PO SCH (08:47)
[2019-05-29] MEDS: MINERAL OIL/PETROLATUM OPH OINT 3.5 GM TUBE BOTH EYES SCH ×3 (08:48→21:57)
[2019-05-29] MEDS: CLOPIDOGREL 75 MG TABLET PO SCH (08:48)
[2019-05-29] MEDS ORDERED: FUROSEMIDE 20 MG/2 ML VIAL IV ONE (17:20)
[2019-05-29] MEDS: MORPHINE 4 MG/1 ML VIAL IV PRN (20:35)
[2019-05-30] MEDS: METOPROLOL TARTRATE 5 MG/5 ML VIAL IV SCH ×2 (00:07→05:23)
[2019-05-30] MEDS: INSULIN REGULAR 100 UNIT/ML SUBCUT SCH ×6 (00:07→21:20)
[2019-05-30 03:17] LABS: ABG Base Excess 4.3 MMOL/L (-2.5-2.5); ABG HCO3 28.3 MMOL/L (20-26); ABG PCO2 38.8 MM HG (35-48); ABG PH 7.469 (7.35-7.45); ABG PO2 93.5 MM HG (80-95); ABG TCO2 25.2 MMOL/L (23-27)
[2019-05-30 03:40] LABS: Calcium 8.5 MG/DL (8.5-10.1); Osmolality,Calculated 284.1 MOS/KG (273-304)
[2019-05-30 03:45] LABS: Prealbumin 17.3 MG/DL (20-40)
[2019-05-30 03:50] LABS: Basophils # 0.1 10*3/uL (0.0-0.2); Basophils % 0.5 % (0.0-0.8); Eosinophils # 0.5 10*3/uL (0.0-0.87); Eosinophils % 5.2 % (0.00-10.9); Hematocrit 32.5 VOL% (35.7-47.0); Hemoglobin 10.8 GM/DL (12.0-16.0); Immature Granulocytes % 1.7 %; Immature Granulocytes Absolute 0.17 #; Lymphocytes # 1.3 10*3/uL (1.4-4.0); Lymphocytes % 13.1 % (21.3-54.2); Mean Corpuscular HGB Conc 33.2 GM/DL (32-36); Mean Corpuscular Volume 92.3 FL (87-102); Monocytes % 8.1 % (1.7-12.7); Neutrophils % 71.4 % (38.7-73.9); Platelet Count 216 T/CUMM (130-400); Red Blood Count 3.52 MC/CUMM (3.8-5.5); Red Cell Distribution Width 13.2 % (9.3-17.3); White Blood Count 10.2 T/CUMM (4-12)
[2019-05-30] MEDS: ENOXAPARIN 100 MG/ML SYRINGE SUBCUT SCH ×2 (05:05→17:28)
[2019-05-30] MEDS: PHENYTOIN 100 MG/2 ML VIAL IV SCH ×3 (05:22→20:05)
[2019-05-30] MEDS: PIPERACILLIN/TAZOBACTAM 3,375 MG in SODIUM CHLORIDE 0.9% 100 ML IV SCH ×2 (05:23→13:15)
[2019-05-30] MEDS: POTASSIUM CHLORIDE RIDER 20 MEQ in PREMIX 1 EACH IV PRN (05:24)
[2019-05-30] MEDS: MAGNESIUM SULF RIDER 2 GM in PREMIX 1 EACH IV PRN (05:24)
[2019-05-30] MEDS: PANTOPRAZOLE 40 MG VIAL IV SCH (07:59)
[2019-05-30] MEDS: MORPHINE 4 MG/1 ML VIAL IV PRN ×5 (08:05→23:48)
[2019-05-30] MEDS: lisinopriL 20 MG TABLET NG SCH (08:08)
[2019-05-30] MEDS: ASPIRIN CHEW 81 MG TABLET PO SCH (08:08)
[2019-05-30] MEDS: CLOPIDOGREL 75 MG TABLET PO SCH (08:08)
[2019-05-30] MEDS: hydroCHLOROthiazide 25 MG TABLET NG SCH (08:08)
[2019-05-30] MEDS: MINERAL OIL/PETROLATUM OPH OINT 3.5 GM TUBE BOTH EYES SCH ×3 (08:09→20:06)
[2019-05-30] MEDS: METOPROLOL TARTRATE 25 MG TABLET PO SCH ×2 (08:23→20:05)
[2019-05-30] MEDS: hydrALAZINE 20 MG/1 ML VIAL IV PRN ×2 (15:08→19:44)
[2019-05-31] MEDS: INSULIN REGULAR 100 UNIT/ML SUBCUT SCH ×6 (00:32→20:37)
[2019-05-31] MEDS: ENOXAPARIN 100 MG/ML SYRINGE SUBCUT SCH ×2 (03:02→16:52)
[2019-05-31] MEDS: PHENYTOIN 100 MG/2 ML VIAL IV SCH ×3 (04:13→21:38)
[2019-05-31 06:00] LABS: ABG HCO3 27.1 MMOL/L (20-26); ABG Oxygen Saturation 98.3 % (95-100); ABG PCO2 37.5 MM HG (35-48); ABG PH 7.461 (7.35-7.45); ABG TCO2 23.5 MMOL/L (23-27)
[2019-05-31 06:35] LABS: Calcium 9.3 MG/DL (8.5-10.1); Osmolality,Calculated 285.3 MOS/KG (273-304)
[2019-05-31] MEDS: PANTOPRAZOLE 40 MG VIAL IV SCH (07:35)
[2019-05-31] MEDS: MORPHINE 4 MG/1 ML VIAL IV PRN ×4 (07:36→16:52)
[2019-05-31] MEDS: hydroCHLOROthiazide 25 MG TABLET NG SCH (09:16)
[2019-05-31] MEDS: METOPROLOL TARTRATE 25 MG TABLET PO SCH ×2 (09:17→21:38)
[2019-05-31] MEDS: lisinopriL 20 MG TABLET NG SCH (09:17)
[2019-05-31] MEDS: ASPIRIN CHEW 81 MG TABLET PO SCH (09:17)
[2019-05-31] MEDS: MINERAL OIL/PETROLATUM OPH OINT 3.5 GM TUBE BOTH EYES SCH ×3 (09:17→21:38)
[2019-05-31] MEDS: ACETAMINOPHEN 325 MG TABLET PO PRN (22:16)
[2019-06-01] MEDS: INSULIN REGULAR 100 UNIT/ML SUBCUT SCH ×6 (01:36→20:53)
[2019-06-01] MEDS: ENOXAPARIN 100 MG/ML SYRINGE SUBCUT SCH (05:28)
[2019-06-01] MEDS: PHENYTOIN 100 MG/2 ML VIAL IV SCH ×3 (05:28→20:54)
[2019-06-01 05:35] LABS: ABG Base Excess 2.4 MMOL/L (-2.5-2.5); ABG HCO3 26.5 MMOL/L (20-26); ABG Oxygen Saturation 97.2 % (95-100); ABG PH 7.449 (7.35-7.45); ABG PO2 88.2 MM HG (80-95); ABG TCO2 22.5 MMOL/L (23-27)
[2019-06-01 06:10] LABS: Basophils # 0.1 10*3/uL (0.0-0.2); Basophils % 0.6 % (0.0-0.8); Eosinophils # 0.4 10*3/uL (0.0-0.87); Eosinophils % 2.7 % (0.00-10.9); Hematocrit 38.2 VOL% (35.7-47.0); Hemoglobin 12.6 GM/DL (12.0-16.0); Immature Granulocytes % 2.2 %; Immature Granulocytes Absolute 0.35 #; Lymphocytes # 1.4 10*3/uL (1.4-4.0); Lymphocytes % 8.5 % (21.3-54.2); Mean Corpuscular Volume 92.9 FL (87-102); Mean Platelet Volume 11.1 FL (9.6-12.0); Monocytes % 6.4 % (1.7-12.7); Neutrophils % 79.6 % (38.7-73.9); Platelet Count 314 T/CUMM (130-400); Red Blood Count 4.11 MC/CUMM (3.8-5.5); Red Cell Distribution Width 13.5 % (9.3-17.3); White Blood Count 16.2 T/CUMM (4-12)
[2019-06-01 06:25] LABS: Calcium 9.5 MG/DL (8.5-10.1); Osmolality,Calculated 283.4 MOS/KG (273-304)
[2019-06-01] MEDS: ASPIRIN CHEW 81 MG TABLET PO SCH (09:28)
[2019-06-01] MEDS: PANTOPRAZOLE 40 MG VIAL IV SCH (09:28)
[2019-06-01] MEDS: hydroCHLOROthiazide 25 MG TABLET NG SCH (09:28)
[2019-06-01] MEDS: MINERAL OIL/PETROLATUM OPH OINT 3.5 GM TUBE BOTH EYES SCH ×3 (09:29→20:54)
[2019-06-01] MEDS: METOPROLOL TARTRATE 50 MG TABLET PO SCH ×2 (09:29→20:54)
[2019-06-01] MEDS: lisinopriL 20 MG TABLET NG SCH (09:29)
[2019-06-01] MEDS: ACETAMINOPHEN 325 MG TABLET PO PRN (17:45)
[2019-06-02] MEDS: INSULIN REGULAR 100 UNIT/ML SUBCUT SCH ×6 (00:06→20:08)
[2019-06-02] MEDS: ACETAMINOPHEN 325 MG TABLET PO PRN (00:19)
[2019-06-02 04:31] LABS: Basophils # 0.1 10*3/uL (0.0-0.2); Basophils % 0.6 % (0.0-0.8); Eosinophils # 0.5 10*3/uL (0.0-0.87); Eosinophils % 2.6 % (0.00-10.9); Hemoglobin 12.9 GM/DL (12.0-16.0); Immature Granulocytes % 2.5 %; Immature Granulocytes Absolute 0.47 #; Lymphocytes # 1.6 10*3/uL (1.4-4.0); Lymphocytes % 8.3 % (21.3-54.2); Mean Corpuscular HGB Conc 33.1 GM/DL (32-36); Mean Corpuscular Volume 92.4 FL (87-102); Mean Platelet Volume 11.1 FL (9.6-12.0); Monocytes % 6.8 % (1.7-12.7); Neutrophils % 79.2 % (38.7-73.9); Platelet Count 417 T/CUMM (130-400); Red Blood Count 4.22 MC/CUMM (3.8-5.5); Red Cell Distribution Width 13.6 % (9.3-17.3); White Blood Count 18.6 T/CUMM (4-12)
[2019-06-02 04:42] LABS: Calcium 9.7 MG/DL (8.5-10.1)
[2019-06-02 04:45] LABS: ABG Base Excess 3.4 MMOL/L (-2.5-2.5); ABG Oxygen Saturation 96.9 % (95-100); ABG PCO2 37.6 MM HG (35-48); ABG PH 7.474 (7.35-7.45); ABG PO2 90.3 MM HG (80-95); ABG TCO2 28.2 MMOL/L (23-27); Allen Test Positive; Pt O2 Delivery Device Ventilator
[2019-06-02 04:51] LABS: Prealbumin 23.4 MG/DL (20-40)
[2019-06-02] MEDS: PHENYTOIN 100 MG/2 ML VIAL IV SCH ×3 (05:05→20:25)
[2019-06-02] MEDS: PANTOPRAZOLE 40 MG VIAL IV SCH (07:44)
[2019-06-02] MEDS ORDERED: LACTATED RINGERS 1,000 ML IV SCH (08:00)
[2019-06-02] MEDS ORDERED: ceFAZolin 1,000 MG in SYRINGE 1 EACH IV ONE (08:00)
[2019-06-02] MEDS: MINERAL OIL/PETROLATUM OPH OINT 3.5 GM TUBE BOTH EYES SCH ×3 (10:18→20:25)
[2019-06-02 10:23] LABS: Apearance,Urine CLOUDY (Clear); Bacteria,Urine Many /HPF (Few); Bilirubin,Urine Negative (Negative); Blood, Urine Large mg/dL (Negative); Glucose,Urine (UA) Negative (Negative); Ketones,Urine Negative (Negative); Mucus,Urine Many /LPF (Occasional); Nitrite,Urine Positive (Negative); Protein,Urine 100 MG/DL; RBC,Urine 54 /HPF (0-4); Urine Color Yellow (Yellow); Urine Specific Gravity 1.025 (1.001-1.035); Urine Urobilinogen < 2.0 EU/DL (0.2-1.0); WBC,Urine 309 /HPF (0-6)
[2019-06-02] MEDS: ASPIRIN CHEW 81 MG TABLET PO SCH (12:31)
[2019-06-02] MEDS: METOPROLOL TARTRATE 50 MG TABLET PO SCH ×2 (12:32→20:25)
[2019-06-02] MEDS: hydroCHLOROthiazide 25 MG TABLET NG SCH (13:17)
[2019-06-02] MEDS: lisinopriL 20 MG TABLET NG SCH (13:17)
[2019-06-03] MEDS: INSULIN REGULAR 100 UNIT/ML SUBCUT SCH ×6 (00:25→20:25)
[2019-06-03 04:22] LABS: Allen Test Positive; Pt O2 Delivery Device Ventilator
[2019-06-03 04:23] LABS: ABG Base Excess 3.9 MMOL/L (-2.5-2.5); ABG HCO3 27.8 MMOL/L (20-26); ABG Oxygen Saturation 97.3 % (95-100); ABG PCO2 40.7 MM HG (35-48); ABG PH 7.448 (7.35-7.45); ABG PO2 87.4 MM HG (80-95); ABG TCO2 24.6 MMOL/L (23-27)
[2019-06-03 04:29] LABS: Basophils # 0.1 10*3/uL (0.0-0.2); Basophils % 0.8 % (0.0-0.8); Eosinophils # 0.4 10*3/uL (0.0-0.87); Eosinophils % 2.8 % (0.00-10.9); Hematocrit 38.1 VOL% (35.7-47.0); Hemoglobin 12.2 GM/DL (12.0-16.0); Immature Granulocytes % 2.8 %; Immature Granulocytes Absolute 0.45 #; Lymphocytes # 1.8 10*3/uL (1.4-4.0); Lymphocytes % 11.1 % (21.3-54.2); Mean Corpuscular Volume 93.6 FL (87-102); Mean Platelet Volume 10.9 FL (9.6-12.0); Neutrophils % 74.5 % (38.7-73.9); Platelet Count 486 T/CUMM (130-400); Red Blood Count 4.07 MC/CUMM (3.8-5.5); Red Cell Distribution Width 13.6 % (9.3-17.3); White Blood Count 15.9 T/CUMM (4-12)
[2019-06-03 04:41] LABS: Calcium 9.8 MG/DL (8.5-10.1)
[2019-06-03] MEDS: PHENYTOIN 100 MG/2 ML VIAL IV SCH ×3 (05:32→20:26)
[2019-06-03] MEDS ORDERED: ceFAZolin 1,000 MG in SYRINGE 1 EACH IV ONE (08:00)
[2019-06-03] MEDS ORDERED: LACTATED RINGERS 1,000 ML IV SCH (08:00)
[2019-06-03] MEDS: MINERAL OIL/PETROLATUM OPH OINT 3.5 GM TUBE BOTH EYES SCH ×3 (08:30→20:26)
[2019-06-03] MEDS: PANTOPRAZOLE 40 MG VIAL IV SCH (10:08)
[2019-06-03] MEDS ORDERED: BUPIVACAINE MPF 0.25% 30 ML VIAL ONE (10:40)
[2019-06-03] MEDS ORDERED: LIDOCAINE 1%/EPI INJ 20 ML VIAL ONE (10:40)
[2019-06-03] MEDS ORDERED: FUROSEMIDE 40 MG/4 ML VIAL IV ONE (10:44)
[2019-06-03] MEDS: ALBUTEROL 2.5 MG/3 ML NEB RESP TX PRN (10:45)
[2019-06-03] MEDS ORDERED: LIDOCAINE 2% 5 ML VIAL ONE (12:11)
[2019-06-03] MEDS ORDERED: fentaNYL 100 MCG/2 ML VIAL ONE (12:11)
[2019-06-03] MEDS ORDERED: propofoL 200 MG/20 ML VIAL IV ONE (12:11)
[2019-06-03] MEDS ORDERED: SEVOFLURANE 1 UNIT/15 MINUTE INH ONE (12:11)
[2019-06-03] MEDS ORDERED: ONDANSETRON 4 MG/2 ML VIAL ONE (12:12)
[2019-06-03] MEDS ORDERED: ROCURONIUM 100 MG/10 ML VIAL IV ONE (12:12)
[2019-06-03] MEDS ORDERED: PHENYLEPHRINE 10 MG/1 ML VIAL IV ONE (12:12)
[2019-06-03] MEDS ORDERED: MIDAZOLAM 2 MG/2 ML VIAL ONE (12:12)
[2019-06-03] MEDS: METOPROLOL TARTRATE 50 MG TABLET PO SCH ×2 (12:40→20:26)
[2019-06-03] MEDS: hydroCHLOROthiazide 25 MG TABLET NG SCH (15:23)
[2019-06-03] MEDS: ASPIRIN CHEW 81 MG TABLET PO SCH (15:23)
[2019-06-03] MEDS: lisinopriL 20 MG TABLET NG SCH (15:23)
[2019-06-03] MEDS: LEVOFLOXACIN INJ 750 MG in PREMIX 1 EACH IV SCH (15:53)
[2019-06-03 16:07] LABS: Apearance,Urine Slightly Hazy (Clear); Bacteria,Urine Occasional /HPF (Few); Bilirubin,Urine Negative (Negative); Blood, Urine Large mg/dL (Negative); Glucose,Urine (UA) Negative (Negative); Hyaline Casts,Urine 1 /LPF (0-3); Ketones,Urine Negative (Negative); Mucus,Urine Occasional /LPF (Occasional); Nitrite,Urine Negative (Negative); Protein,Urine Negative; RBC,Urine 499 /HPF (0-4); Squamous Epithelial Cell,Urine Occasional /HPF (0-10); Urine Color Yellow (Yellow); Urine Specific Gravity 1.014 (1.001-1.035); Urine Urobilinogen < 2.0 EU/DL (0.2-1.0); WBC,Urine 12 /HPF (0-6)
[2019-06-04] MEDS: INSULIN REGULAR 100 UNIT/ML SUBCUT SCH ×6 (00:37→20:28)
[2019-06-04 03:47] LABS: ABG Base Excess 3.7 MMOL/L (-2.5-2.5); ABG HCO3 27.7 MMOL/L (20-26); ABG Oxygen Saturation 97.9 % (95-100); ABG PCO2 39.7 MM HG (35-48); ABG PH 7.454 (7.35-7.45); ABG PO2 93.1 MM HG (80-95); ABG TCO2 24.3 MMOL/L (23-27)
[2019-06-04] MEDS: MORPHINE 4 MG/1 ML VIAL IV PRN (04:10)
[2019-06-04 04:24] LABS: Basophils # 0.2 10*3/uL (0.0-0.2); Basophils % 0.8 % (0.0-0.8); Eosinophils # 0.2 10*3/uL (0.0-0.87); Eosinophils % 1.3 % (0.00-10.9); Hematocrit 39.4 VOL% (35.7-47.0); Hemoglobin 12.3 GM/DL (12.0-16.0); Immature Granulocytes % 2.7 %; Immature Granulocytes Absolute 0.48 #; Lymphocytes # 1.5 10*3/uL (1.4-4.0); Lymphocytes % 8.1 % (21.3-54.2); Mean Corpuscular HGB Conc 31.2 GM/DL (32-36); Mean Corpuscular Volume 96.6 FL (87-102); Mean Platelet Volume 10.6 FL (9.6-12.0); Monocytes % 7.5 % (1.7-12.7); Neutrophils % 79.6 % (38.7-73.9); Platelet Count 509 T/CUMM (130-400); Red Blood Count 4.08 MC/CUMM (3.8-5.5); Red Cell Distribution Width 13.7 % (9.3-17.3); White Blood Count 17.8 T/CUMM (4-12)
[2019-06-04 04:45] LABS: Calcium 9.1 MG/DL (8.5-10.1); Osmolality,Calculated 291.7 MOS/KG (273-304)
[2019-06-04] MEDS: PHENYTOIN 100 MG/2 ML VIAL IV SCH ×3 (06:25→20:35)
[2019-06-04] MEDS: PANTOPRAZOLE 40 MG VIAL IV SCH (08:53)
[2019-06-04] MEDS: METOPROLOL TARTRATE 50 MG TABLET PO SCH ×2 (08:55→20:36)
[2019-06-04] MEDS: MINERAL OIL/PETROLATUM OPH OINT 3.5 GM TUBE BOTH EYES SCH ×3 (08:55→20:36)
[2019-06-04] MEDS: hydroCHLOROthiazide 25 MG TABLET NG SCH (08:55)
[2019-06-04] MEDS: lisinopriL 20 MG TABLET NG SCH (08:55)
[2019-06-04] MEDS: ASPIRIN CHEW 81 MG TABLET PO SCH (08:55)
[2019-06-04] MEDS ORDERED: LACTULOSE 20 GM/30 ML UDCUP PO PRN (14:12)
[2019-06-04] MEDS: LEVOFLOXACIN INJ 750 MG in PREMIX 1 EACH IV SCH (15:00)
[2019-06-05] MEDS: INSULIN REGULAR 100 UNIT/ML SUBCUT SCH ×6 (01:22→23:59)
[2019-06-05 03:21] LABS: ABG Base Excess 2.3 MMOL/L (-2.5-2.5); ABG HCO3 26.2 MMOL/L (20-26); ABG Oxygen Saturation 96.7 % (95-100); ABG PH 7.456 (7.35-7.45); ABG PO2 86.4 MM HG (80-95); ABG TCO2 27.3 MMOL/L (23-27); Allen Test Positive; Pt O2 Delivery Device Ventilator
[2019-06-05 05:06] LABS: Basophils # 0.1 10*3/uL (0.0-0.2); Basophils % 0.8 % (0.0-0.8); Eosinophils # 0.3 10*3/uL (0.0-0.87); Eosinophils % 1.9 % (0.00-10.9); Hematocrit 39.1 VOL% (35.7-47.0); Hemoglobin 12.2 GM/DL (12.0-16.0); Immature Granulocytes % 2.2 %; Immature Granulocytes Absolute 0.35 #; Lymphocytes # 1.5 10*3/uL (1.4-4.0); Lymphocytes % 9.6 % (21.3-54.2); Mean Corpuscular HGB Conc 31.2 GM/DL (32-36); Mean Corpuscular Volume 96.3 FL (87-102); Mean Platelet Volume 10.8 FL (9.6-12.0); Monocytes % 8.7 % (1.7-12.7); Neutrophils % 76.8 % (38.7-73.9); Platelet Count 542 T/CUMM (130-400); Red Blood Count 4.06 MC/CUMM (3.8-5.5); Red Cell Distribution Width 13.4 % (9.3-17.3); White Blood Count 15.6 T/CUMM (4-12)
[2019-06-05 05:20] LABS: Calcium 9.5 MG/DL (8.5-10.1); Osmolality,Calculated 299.4 MOS/KG (273-304)
[2019-06-05] MEDS: PHENYTOIN 100 MG/2 ML VIAL IV SCH ×3 (06:09→22:05)
[2019-06-05] MEDS: hydroCHLOROthiazide 25 MG TABLET NG SCH (08:48)
[2019-06-05] MEDS: lisinopriL 20 MG TABLET NG SCH (08:48)
[2019-06-05] MEDS: METOPROLOL TARTRATE 50 MG TABLET PO SCH ×2 (08:48→21:59)
[2019-06-05] MEDS: PANTOPRAZOLE 40 MG VIAL IV SCH (08:49)
[2019-06-05] MEDS: ASPIRIN CHEW 81 MG TABLET PO SCH (08:49)
[2019-06-05] MEDS: MINERAL OIL/PETROLATUM OPH OINT 3.5 GM TUBE BOTH EYES SCH ×3 (08:54→22:06)
[2019-06-05] MEDS: MEROPENEM 500 MG in SODIUM CHLORIDE 0.9% 100 ML IV SCH ×3 (10:55→22:06)
[2019-06-06 03:41] LABS: ABG Base Excess 3.4 MMOL/L (-2.5-2.5); ABG HCO3 27.7 MMOL/L (20-26); ABG Oxygen Saturation 97.7 % (95-100); ABG PCO2 41.1 MM HG (35-48); ABG PH 7.447 (7.35-7.45); ABG PO2 103.2 MM HG (80-95); Allen Test Positive; Pt O2 Delivery Device Ventilator
[2019-06-06] MEDS: MEROPENEM 500 MG in SODIUM CHLORIDE 0.9% 100 ML IV SCH ×4 (03:46→20:11)
[2019-06-06 04:45] LABS: Basophils # 0.1 10*3/uL (0.0-0.2); Basophils % 0.7 % (0.0-0.8); Eosinophils # 0.4 10*3/uL (0.0-0.87); Eosinophils % 2.7 % (0.00-10.9); Hematocrit 38.4 VOL% (35.7-47.0); Immature Granulocytes % 2.1 %; Immature Granulocytes Absolute 0.34 #; Lymphocytes # 1.8 10*3/uL (1.4-4.0); Lymphocytes % 11.3 % (21.3-54.2); Mean Corpuscular HGB Conc 31.3 GM/DL (32-36); Mean Corpuscular Volume 96.2 FL (87-102); Mean Platelet Volume 11.1 FL (9.6-12.0); Monocytes % 9.2 % (1.7-12.7); Platelet Count 514 T/CUMM (130-400); Red Blood Count 3.99 MC/CUMM (3.8-5.5); Red Cell Distribution Width 13.5 % (9.3-17.3); White Blood Count 15.8 T/CUMM (4-12)
[2019-06-06 04:59] LABS: Calcium 10.1 MG/DL (8.5-10.1); Osmolality,Calculated 299.7 MOS/KG (273-304)
[2019-06-06] MEDS: INSULIN REGULAR 100 UNIT/ML SUBCUT SCH ×4 (05:05→23:15)
[2019-06-06 05:10] LABS: Prealbumin 27.1 MG/DL (20-40)
[2019-06-06] MEDS: PHENYTOIN 100 MG/2 ML VIAL IV SCH ×3 (05:15→20:11)
[2019-06-06] MEDS: PANTOPRAZOLE 40 MG VIAL IV SCH (08:09)
[2019-06-06] MEDS: MINERAL OIL/PETROLATUM OPH OINT 3.5 GM TUBE BOTH EYES SCH ×3 (08:14→20:12)
[2019-06-06] MEDS: hydroCHLOROthiazide 25 MG TABLET NG SCH (08:14)
[2019-06-06] MEDS: ASPIRIN CHEW 81 MG TABLET PO SCH (08:14)
[2019-06-06] MEDS: METOPROLOL TARTRATE 50 MG TABLET PO SCH ×2 (08:14→20:11)
[2019-06-06] MEDS: lisinopriL 20 MG TABLET NG SCH (08:14)
[2019-06-07] MEDS: MEROPENEM 500 MG in SODIUM CHLORIDE 0.9% 100 ML IV SCH ×4 (03:58→21:27)
[2019-06-07] MEDS: PHENYTOIN 100 MG/2 ML VIAL IV SCH ×3 (04:01→21:34)
[2019-06-07 04:13] LABS: ABG Base Excess 4.1 MMOL/L (-2.5-2.5); ABG HCO3 27.6 MMOL/L (20-26); ABG Oxygen Saturation 92.4 % (95-100); ABG PCO2 37.7 MM HG (35-48); ABG PH 7.483 (7.35-7.45); ABG PO2 60.8 MM HG (80-95); ABG TCO2 28.8 MMOL/L (23-27); Allen Test Positive; Pt O2 Delivery Device Ventilator
[2019-06-07 05:17] LABS: Basophils # 0.1 10*3/uL (0.0-0.2); Basophils % 0.6 % (0.0-0.8); Eosinophils # 0.4 10*3/uL (0.0-0.87); Eosinophils % 2.7 % (0.00-10.9); Hemoglobin 12.4 GM/DL (12.0-16.0); Immature Granulocytes % 1.6 %; Immature Granulocytes Absolute 0.26 #; Lymphocytes # 1.9 10*3/uL (1.4-4.0); Lymphocytes % 12.2 % (21.3-54.2); Mean Corpuscular HGB Conc 31.8 GM/DL (32-36); Mean Corpuscular Volume 94.7 FL (87-102); Mean Platelet Volume 11.4 FL (9.6-12.0); Monocytes % 7.7 % (1.7-12.7); Neutrophils % 75.2 % (38.7-73.9); Platelet Count 573 T/CUMM (130-400); Red Blood Count 4.12 MC/CUMM (3.8-5.5); Red Cell Distribution Width 13.5 % (9.3-17.3); White Blood Count 15.9 T/CUMM (4-12)
[2019-06-07 05:51] LABS: Calcium 9.6 MG/DL (8.5-10.1); Osmolality,Calculated 303.3 MOS/KG (273-304)
[2019-06-07] MEDS: INSULIN REGULAR 100 UNIT/ML SUBCUT SCH ×3 (05:54→17:57)
[2019-06-07] MEDS ORDERED: MIDAZOLAM 10 MG/2 ML VIAL ONE (07:15)
[2019-06-07] MEDS: MIDAZOLAM 2 MG/2 ML VIAL IV ONE ×2 (07:30→07:39)
[2019-06-07] MEDS ORDERED: LIDOCAINE 1% 20 ML VIAL MISC INJ ONE (07:30)
[2019-06-07] MEDS: ASPIRIN CHEW 81 MG TABLET PO SCH (08:09)
[2019-06-07] MEDS: hydroCHLOROthiazide 25 MG TABLET NG SCH (08:09)
[2019-06-07] MEDS: METOPROLOL TARTRATE 50 MG TABLET PO SCH ×2 (08:09→21:26)
[2019-06-07] MEDS: MINERAL OIL/PETROLATUM OPH OINT 3.5 GM TUBE BOTH EYES SCH ×3 (08:28→21:42)
[2019-06-07] MEDS: PANTOPRAZOLE 40 MG VIAL IV SCH (08:28)
[2019-06-07] MEDS: lisinopriL 20 MG TABLET NG SCH (09:11)
[2019-06-07] MEDS: ACETAMINOPHEN 325 MG TABLET PO PRN ×2 (14:06→21:26)
[2019-06-08] MEDS: INSULIN REGULAR 100 UNIT/ML SUBCUT SCH ×4 (01:18→17:25)
[2019-06-08 04:02] LABS: ABG Base Excess 3.8 MMOL/L (-2.5-2.5); ABG HCO3 27.8 MMOL/L (20-26); ABG Oxygen Saturation 98.3 % (95-100); ABG PCO2 38.6 MM HG (35-48); ABG PH 7.463 (7.35-7.45); ABG PO2 98.8 MM HG (80-95); ABG TCO2 24.2 MMOL/L (23-27); Allen Test Positive; Pt O2 Delivery Device Ventilator
[2019-06-08] MEDS: MEROPENEM 500 MG in SODIUM CHLORIDE 0.9% 100 ML IV SCH ×4 (05:23→21:30)
[2019-06-08 05:25] LABS: Basophils # 0.1 10*3/uL (0.0-0.2); Basophils % 0.8 % (0.0-0.8); Eosinophils # 0.4 10*3/uL (0.0-0.87); Eosinophils % 2.6 % (0.00-10.9); Hematocrit 38.7 VOL% (35.7-47.0); Hemoglobin 12.3 GM/DL (12.0-16.0); Immature Granulocytes % 1.2 %; Immature Granulocytes Absolute 0.18 #; Lymphocytes # 1.9 10*3/uL (1.4-4.0); Lymphocytes % 12.2 % (21.3-54.2); Mean Corpuscular HGB Conc 31.8 GM/DL (32-36); Mean Corpuscular Volume 95.1 FL (87-102); Mean Platelet Volume 11.8 FL (9.6-12.0); Monocytes % 9.1 % (1.7-12.7); Neutrophils % 74.1 % (38.7-73.9); Platelet Count 460 T/CUMM (130-400); Red Blood Count 4.07 MC/CUMM (3.8-5.5); Red Cell Distribution Width 13.5 % (9.3-17.3); White Blood Count 15.7 T/CUMM (4-12)
[2019-06-08] MEDS: PHENYTOIN 100 MG/2 ML VIAL IV SCH ×3 (05:31→21:29)
[2019-06-08] MEDS: MORPHINE 4 MG/1 ML VIAL IV PRN ×6 (07:35→18:14)
[2019-06-08] MEDS: PANTOPRAZOLE 40 MG VIAL IV SCH (07:35)
[2019-06-08] MEDS: lisinopriL 20 MG TABLET NG SCH (08:18)
[2019-06-08] MEDS: METOPROLOL TARTRATE 50 MG TABLET PO SCH ×2 (08:18→21:29)
[2019-06-08] MEDS: hydroCHLOROthiazide 25 MG TABLET NG SCH (08:18)
[2019-06-08] MEDS: ASPIRIN CHEW 81 MG TABLET PO SCH (08:18)
[2019-06-08] MEDS: MINERAL OIL/PETROLATUM OPH OINT 3.5 GM TUBE BOTH EYES SCH ×3 (08:26→21:35)
[2019-06-09] MEDS: INSULIN REGULAR 100 UNIT/ML SUBCUT SCH ×5 (00:46→23:48)
[2019-06-09 03:15] LABS: ABG Base Excess 4.6 MMOL/L (-2.5-2.5); ABG HCO3 28.6 MMOL/L (20-26); ABG Oxygen Saturation 98.9 % (95-100); ABG PCO2 39.2 MM HG (35-48); ABG TCO2 25.2 MMOL/L (23-27); Allen Test Positive; Pt O2 Delivery Device Ventilator
[2019-06-09] MEDS: MEROPENEM 500 MG in SODIUM CHLORIDE 0.9% 100 ML IV SCH ×4 (03:48→20:29)
[2019-06-09 04:33] LABS: Calcium 9.4 MG/DL (8.5-10.1)
[2019-06-09] MEDS: PHENYTOIN 100 MG/2 ML VIAL IV SCH ×3 (05:20→20:15)
[2019-06-09] MEDS: MORPHINE 4 MG/1 ML VIAL IV PRN ×6 (07:31→18:27)
[2019-06-09] MEDS: PANTOPRAZOLE 40 MG VIAL IV SCH (07:31)
[2019-06-09] MEDS: hydroCHLOROthiazide 25 MG TABLET NG SCH (08:31)
[2019-06-09] MEDS: lisinopriL 20 MG TABLET NG SCH (08:31)
[2019-06-09] MEDS: MINERAL OIL/PETROLATUM OPH OINT 3.5 GM TUBE BOTH EYES SCH ×3 (08:31→20:29)
[2019-06-09] MEDS: METOPROLOL TARTRATE 50 MG TABLET PO SCH ×2 (08:32→20:29)
[2019-06-09] MEDS: ASPIRIN CHEW 81 MG TABLET PO SCH (08:32)
[2019-06-10] MEDS: MEROPENEM 500 MG in SODIUM CHLORIDE 0.9% 100 ML IV SCH ×4 (03:13→20:44)
[2019-06-10 03:27] LABS: ABG Oxygen Saturation 98.9 % (95-100); ABG PH 7.463 (7.35-7.45); ABG TCO2 24.9 MMOL/L (23-27); Allen Test Positive; Pt O2 Delivery Device Ventilator
[2019-06-10 03:56] LABS: Basophils # 0.1 10*3/uL (0.0-0.2); Basophils % 0.6 % (0.0-0.8); Eosinophils # 0.9 10*3/uL (0.0-0.87); Eosinophils % 6.3 % (0.00-10.9); Hematocrit 33.2 VOL% (35.7-47.0); Hemoglobin 10.5 GM/DL (12.0-16.0); Immature Granulocytes Absolute 0.14 #; Lymphocytes # 1.8 10*3/uL (1.4-4.0); Lymphocytes % 13.4 % (21.3-54.2); Mean Corpuscular HGB Conc 31.6 GM/DL (32-36); Mean Corpuscular Volume 96.5 FL (87-102); Mean Platelet Volume 11.1 FL (9.6-12.0); Neutrophils % 71.7 % (38.7-73.9); Platelet Count 397 T/CUMM (130-400); Red Blood Count 3.44 MC/CUMM (3.8-5.5); Red Cell Distribution Width 13.3 % (9.3-17.3); White Blood Count 13.5 T/CUMM (4-12)
[2019-06-10 04:08] LABS: Calcium 9.3 MG/DL (8.5-10.1); Osmolality,Calculated 303.1 MOS/KG (273-304)
[2019-06-10] MEDS: PHENYTOIN 100 MG/2 ML VIAL IV SCH ×3 (04:08→20:43)
[2019-06-10] MEDS: INSULIN REGULAR 100 UNIT/ML SUBCUT SCH ×4 (05:51→23:44)
[2019-06-10] MEDS: PANTOPRAZOLE 40 MG VIAL IV SCH (09:33)
[2019-06-10] MEDS: METOPROLOL TARTRATE 50 MG TABLET PO SCH ×2 (09:33→20:44)
[2019-06-10] MEDS: ASPIRIN CHEW 81 MG TABLET PO SCH (09:33)
[2019-06-10] MEDS: hydroCHLOROthiazide 25 MG TABLET NG SCH (09:33)
[2019-06-10] MEDS: lisinopriL 20 MG TABLET NG SCH (09:34)
[2019-06-10] MEDS: MINERAL OIL/PETROLATUM OPH OINT 3.5 GM TUBE BOTH EYES SCH ×3 (09:34→20:44)
[2019-06-10] MEDS: DOCUSATE/SENNA 50-8.6 MG TABLET PO SCH ×2 (12:19→20:44)
[2019-06-10] MEDS: SODIUM CHLORIDE 0.9% 1,000 ML IV SCH (18:26)
[2019-06-11] MEDS: MEROPENEM 500 MG in SODIUM CHLORIDE 0.9% 100 ML IV SCH ×4 (03:21→20:55)
[2019-06-11] MEDS: SODIUM CHLORIDE 0.9% 1,000 ML IV SCH ×4 (03:45→20:39)
[2019-06-11 03:49] LABS: Basophils # 0.1 10*3/uL (0.0-0.2); Basophils % 0.6 % (0.0-0.8); Eosinophils # 0.7 10*3/uL (0.0-0.87); Eosinophils % 5.2 % (0.00-10.9); Hematocrit 33.7 VOL% (35.7-47.0); Hemoglobin 10.6 GM/DL (12.0-16.0); Immature Granulocytes % 1.1 %; Immature Granulocytes Absolute 0.15 #; Lymphocytes # 1.8 10*3/uL (1.4-4.0); Lymphocytes % 12.5 % (21.3-54.2); Mean Corpuscular HGB Conc 31.5 GM/DL (32-36); Mean Corpuscular Volume 96.3 FL (87-102); Mean Platelet Volume 11.2 FL (9.6-12.0); Monocytes % 6.9 % (1.7-12.7); Neutrophils % 73.7 % (38.7-73.9); Platelet Count 365 T/CUMM (130-400); Red Cell Distribution Width 12.9 % (9.3-17.3); White Blood Count 14.2 T/CUMM (4-12)
[2019-06-11 04:05] LABS: Calcium 9.3 MG/DL (8.5-10.1); Osmolality,Calculated 294.4 MOS/KG (273-304)
[2019-06-11 04:34] LABS: ABG Base Excess 2.2 MMOL/L (-2.5-2.5); ABG HCO3 25.9 MMOL/L (20-26); ABG Oxygen Saturation 97.2 % (95-100); ABG PCO2 36.9 MM HG (35-48); ABG PH 7.464 (7.35-7.45); Allen Test Positive; Pt O2 Delivery Device Ventilator
[2019-06-11] MEDS: PHENYTOIN 100 MG/2 ML VIAL IV SCH ×3 (04:49→20:56)
[2019-06-11] MEDS: INSULIN REGULAR 100 UNIT/ML SUBCUT SCH ×3 (06:01→18:16)
[2019-06-11] MEDS: PANTOPRAZOLE 40 MG VIAL IV SCH (08:06)
[2019-06-11] MEDS: DOCUSATE/SENNA 50-8.6 MG TABLET PO SCH ×2 (08:07→22:40)
[2019-06-11] MEDS: ASPIRIN CHEW 81 MG TABLET PO SCH (08:07)
[2019-06-11] MEDS: METOPROLOL TARTRATE 50 MG TABLET PO SCH ×2 (08:07→20:36)
[2019-06-11] MEDS: lisinopriL 20 MG TABLET NG SCH (08:07)
[2019-06-11] MEDS: hydroCHLOROthiazide 25 MG TABLET NG SCH (08:07)
[2019-06-11] MEDS: MINERAL OIL/PETROLATUM OPH OINT 3.5 GM TUBE BOTH EYES SCH ×3 (08:08→22:40)
[2019-06-11] MEDS: ENOXAPARIN 40 MG/0.4 ML SYRINGE SUBCUT SCH (20:55)
[2019-06-12] MEDS: INSULIN REGULAR 100 UNIT/ML SUBCUT SCH ×4 (01:30→18:40)
[2019-06-12] MEDS: SODIUM CHLORIDE 0.9% 1,000 ML IV SCH ×4 (01:32→18:22)
[2019-06-12] MEDS: MEROPENEM 500 MG in SODIUM CHLORIDE 0.9% 100 ML IV SCH ×3 (04:00→15:12)
[2019-06-12] MEDS: PHENYTOIN 100 MG/2 ML VIAL IV SCH ×3 (04:30→20:28)
[2019-06-12 04:40] LABS: ABG Base Excess 0.3 MMOL/L (-2.5-2.5); ABG HCO3 23.2 MMOL/L (20-26); ABG Oxygen Saturation 98.4 % (95-100); ABG PCO2 32.3 MM HG (35-48); ABG PH 7.475 (7.35-7.45); ABG PO2 122.7 MM HG (80-95); ABG TCO2 24.2 MMOL/L (23-27); Allen Test Positive; Pt O2 Delivery Device Ventilator
[2019-06-12 06:07] LABS: Basophils # 0.1 10*3/uL (0.0-0.2); Basophils % 0.5 % (0.0-0.8); Eosinophils # 0.6 10*3/uL (0.0-0.87); Eosinophils % 5.3 % (0.00-10.9); Hemoglobin 9.9 GM/DL (12.0-16.0); Immature Granulocytes % 1.5 %; Immature Granulocytes Absolute 0.16 #; Lymphocytes # 1.5 10*3/uL (1.4-4.0); Lymphocytes % 14.6 % (21.3-54.2); Mean Corpuscular HGB Conc 31.9 GM/DL (32-36); Mean Corpuscular Volume 94.5 FL (87-102); Mean Platelet Volume 12.7 FL (9.6-12.0); Monocytes % 6.6 % (1.7-12.7); Neutrophils % 71.5 % (38.7-73.9); Platelet Count 215 T/CUMM (130-400); Red Blood Count 3.28 MC/CUMM (3.8-5.5); Red Cell Distribution Width 12.3 % (9.3-17.3); White Blood Count 10.5 T/CUMM (4-12)
[2019-06-12 06:22] LABS: Calcium 8.8 MG/DL (8.5-10.1); Osmolality,Calculated 290.8 MOS/KG (273-304)
[2019-06-12] MEDS: DOCUSATE/SENNA 50-8.6 MG TABLET PO SCH ×2 (08:32→20:29)
[2019-06-12] MEDS: METOPROLOL TARTRATE 50 MG TABLET PO SCH ×2 (08:32→20:29)
[2019-06-12] MEDS: PANTOPRAZOLE 40 MG VIAL IV SCH (08:41)
[2019-06-12] MEDS: lisinopriL 20 MG TABLET NG SCH (08:41)
[2019-06-12] MEDS: hydroCHLOROthiazide 25 MG TABLET NG SCH (08:41)
[2019-06-12] MEDS: ASPIRIN CHEW 81 MG TABLET PO SCH (08:41)
[2019-06-12] MEDS: MINERAL OIL/PETROLATUM OPH OINT 3.5 GM TUBE BOTH EYES SCH ×3 (08:44→20:29)
[2019-06-12] MEDS: ENOXAPARIN 40 MG/0.4 ML SYRINGE SUBCUT SCH (19:24)
[2019-06-13] MEDS: INSULIN REGULAR 100 UNIT/ML SUBCUT SCH ×5 (00:22→23:49)
[2019-06-13] MEDS: SODIUM CHLORIDE 0.9% 1,000 ML IV SCH ×3 (04:25→20:51)
[2019-06-13 04:55] LABS: Basophils # 0.1 10*3/uL (0.0-0.2); Basophils % 0.6 % (0.0-0.8); Eosinophils # 0.5 10*3/uL (0.0-0.87); Eosinophils % 5.6 % (0.00-10.9); Hematocrit 30.6 VOL% (35.7-47.0); Hemoglobin 10.1 GM/DL (12.0-16.0); Immature Granulocytes % 1.7 %; Immature Granulocytes Absolute 0.16 #; Lymphocytes # 1.1 10*3/uL (1.4-4.0); Lymphocytes % 12.2 % (21.3-54.2); Mean Corpuscular Volume 92.2 FL (87-102); Mean Platelet Volume 11.8 FL (9.6-12.0); Monocytes % 7.2 % (1.7-12.7); Neutrophils % 72.7 % (38.7-73.9); Platelet Count 312 T/CUMM (130-400); Red Blood Count 3.32 MC/CUMM (3.8-5.5); Red Cell Distribution Width 12.1 % (9.3-17.3); White Blood Count 9.3 T/CUMM (4-12)
[2019-06-13 05:01] LABS: Apearance,Urine CLOUDY (Clear); Bacteria,Urine Occasional /HPF (Few); Bilirubin,Urine Negative (Negative); Blood, Urine Moderate mg/dL (Negative); Glucose,Urine (UA) Negative (Negative); Ketones,Urine Negative (Negative); Mucus,Urine Occasional /LPF (Occasional); Nitrite,Urine Negative (Negative); Protein,Urine Negative; RBC,Urine 122 /HPF (0-4); Squamous Epithelial Cell,Urine Occasional /HPF (0-10); Urine Color Yellow (Yellow); Urine Specific Gravity 1.019 (1.001-1.035); Urine Urobilinogen < 2.0 EU/DL (0.2-1.0); WBC,Urine 23 /HPF (0-6)
[2019-06-13 05:05] LABS: ABG Base Excess 0.8 MMOL/L (-2.5-2.5); ABG HCO3 25.1 MMOL/L (20-26); ABG Oxygen Saturation 98.2 % (95-100); ABG PH 7.443 (7.35-7.45); ABG TCO2 22.2 MMOL/L (23-27); Allen Test Positive; Pt O2 Delivery Device Ventilator
[2019-06-13 05:14] LABS: Alanine Aminotransferase 114 U/L (13-56); Albumin 2.3 G/DL (3.4-5.0); Alkaline Phosphatase 244 U/L (45-117); Aspartate Amino Transferase 59 U/L (0-37); Bilirubin,Total < 0.39 MG/DL (0.2-1.0); Blood Urea Nitrogen 19 MG/DL (7-18); Calcium 9.1 MG/DL (8.5-10.1); Estimated Glom Filtration Rate 136 ML/MIN; Glucose 125 MG/DL (74-106); Osmolality,Calculated 277.7 MOS/KG (273-304); Total Protein 6.8 G/DL (6.4-8.3)
[2019-06-13] MEDS: PHENYTOIN 100 MG/2 ML VIAL IV SCH ×3 (06:26→21:48)
[2019-06-13] MEDS: hydroCHLOROthiazide 25 MG TABLET NG SCH (08:44)
[2019-06-13] MEDS: PANTOPRAZOLE 40 MG VIAL IV SCH (08:44)
[2019-06-13] MEDS: ASPIRIN CHEW 81 MG TABLET PO SCH (08:45)
[2019-06-13] MEDS: DOCUSATE/SENNA 50-8.6 MG TABLET PO SCH ×2 (08:45→21:47)
[2019-06-13] MEDS: lisinopriL 20 MG TABLET NG SCH (08:45)
[2019-06-13] MEDS: METOPROLOL TARTRATE 50 MG TABLET PO SCH ×2 (08:45→21:47)
[2019-06-13] MEDS: MINERAL OIL/PETROLATUM OPH OINT 3.5 GM TUBE BOTH EYES SCH ×3 (08:45→21:48)
[2019-06-13] MEDS: ALBUTEROL/IPRATROPIUM 3 ML NEB RESP TX SCH ×4 (10:54→23:00)
[2019-06-13] MEDS ORDERED: METOPROLOL TARTRATE 5 MG/5 ML VIAL IV ONE ×2 (13:00→13:01)
[2019-06-13] MEDS: MORPHINE 4 MG/1 ML VIAL IV PRN (16:28)
[2019-06-13] MEDS: BUDESONIDE 0.5 MG/2 ML NEB RESP TX SCH (19:29)
[2019-06-13] MEDS: DESITIN 4OZ/NYSTATIN 15 GRAM MIXTURE PASTE TOP SCH (20:52)
[2019-06-13] MEDS: ENOXAPARIN 40 MG/0.4 ML SYRINGE SUBCUT SCH (21:47)
[2019-06-13] MEDS: POTASSIUM CHLORIDE RIDER 20 MEQ in PREMIX 1 EACH IV PRN (21:57)
[2019-06-14] MEDS: MORPHINE 4 MG/1 ML VIAL IV PRN ×4 (00:15→23:36)
[2019-06-14] MEDS: ALBUTEROL/IPRATROPIUM 3 ML NEB RESP TX SCH ×6 (03:09→23:58)
[2019-06-14 03:53] LABS: ABG Base Excess 1.1 MMOL/L (-2.5-2.5); ABG HCO3 25.4 MMOL/L (20-26); ABG Oxygen Saturation 99.2 % (95-100); ABG PCO2 40.4 MM HG (35-48); ABG PH 7.412 (7.35-7.45); ABG TCO2 23.4 MMOL/L (23-27); Allen Test Positive; Pt O2 Delivery Device Ventilator
[2019-06-14] MEDS: PHENYTOIN 100 MG/2 ML VIAL IV SCH ×3 (06:02→21:03)
[2019-06-14] MEDS: INSULIN REGULAR 100 UNIT/ML SUBCUT SCH ×4 (06:03→23:58)
[2019-06-14] MEDS: SODIUM CHLORIDE 0.9% 1,000 ML IV SCH ×3 (06:25→18:02)
[2019-06-14] MEDS: BUDESONIDE 0.5 MG/2 ML NEB RESP TX SCH ×2 (08:28→19:45)
[2019-06-14] MEDS: lisinopriL 20 MG TABLET NG SCH (09:02)
[2019-06-14] MEDS: hydroCHLOROthiazide 25 MG TABLET NG SCH (09:02)
[2019-06-14] MEDS: METOPROLOL TARTRATE 50 MG TABLET PO SCH ×2 (09:02→20:59)
[2019-06-14] MEDS: ASPIRIN CHEW 81 MG TABLET PO SCH (09:02)
[2019-06-14] MEDS: DOCUSATE/SENNA 50-8.6 MG TABLET PO SCH ×2 (09:02→21:00)
[2019-06-14] MEDS: PANTOPRAZOLE 40 MG VIAL IV SCH (09:03)
[2019-06-14] MEDS: DESITIN 4OZ/NYSTATIN 15 GRAM MIXTURE PASTE TOP SCH ×2 (09:19→21:00)
[2019-06-14] MEDS: MINERAL OIL/PETROLATUM OPH OINT 3.5 GM TUBE BOTH EYES SCH ×3 (09:20→21:00)
[2019-06-14] MEDS: FLUCONAZOLE INJ 100 MG in IV BAG 1 EACH IV SCH (12:44)
[2019-06-14] MEDS: ENOXAPARIN 40 MG/0.4 ML SYRINGE SUBCUT SCH (21:00)
[2019-06-15] MEDS: SODIUM CHLORIDE 0.9% 1,000 ML IV SCH ×4 (02:03→17:22)
[2019-06-15] MEDS: MORPHINE 4 MG/1 ML VIAL IV PRN ×2 (03:39→06:36)
[2019-06-15] MEDS: ALBUTEROL/IPRATROPIUM 3 ML NEB RESP TX SCH ×6 (04:30→23:45)
[2019-06-15] MEDS: PHENYTOIN 100 MG/2 ML VIAL IV SCH ×3 (04:34→21:29)
[2019-06-15 05:00] LABS: Basophils % 0.4 % (0.0-0.8); Eosinophils # 0.5 10*3/uL (0.0-0.87); Hematocrit 29.8 VOL% (35.7-47.0); Hemoglobin 9.8 GM/DL (12.0-16.0); Immature Granulocytes % 1.8 %; Immature Granulocytes Absolute 0.16 #; Lymphocytes # 1.2 10*3/uL (1.4-4.0); Lymphocytes % 13.4 % (21.3-54.2); Mean Corpuscular HGB Conc 32.9 GM/DL (32-36); Mean Corpuscular Volume 91.4 FL (87-102); Mean Platelet Volume 12.3 FL (9.6-12.0); Monocytes % 8.2 % (1.7-12.7); Neutrophils % 70.2 % (38.7-73.9); Platelet Count 297 T/CUMM (130-400); Red Blood Count 3.26 MC/CUMM (3.8-5.5); Red Cell Distribution Width 12.2 % (9.3-17.3); White Blood Count 8.9 T/CUMM (4-12)
[2019-06-15] MEDS: INSULIN REGULAR 100 UNIT/ML SUBCUT SCH ×3 (05:36→17:45)
[2019-06-15] MEDS: POTASSIUM CHLORIDE RIDER 20 MEQ in PREMIX 1 EACH IV PRN (06:05)
[2019-06-15] MEDS: BUDESONIDE 0.5 MG/2 ML NEB RESP TX SCH ×2 (07:47→20:04)
[2019-06-15] MEDS: ASPIRIN CHEW 81 MG TABLET PO SCH (08:24)
[2019-06-15] MEDS: DOCUSATE/SENNA 50-8.6 MG TABLET PO SCH ×2 (08:24→21:27)
[2019-06-15] MEDS: METOPROLOL TARTRATE 50 MG TABLET PO SCH ×2 (08:24→21:27)
[2019-06-15] MEDS: PANTOPRAZOLE 40 MG VIAL IV SCH (08:24)
[2019-06-15] MEDS: lisinopriL 20 MG TABLET NG SCH (08:24)
[2019-06-15] MEDS: hydroCHLOROthiazide 25 MG TABLET NG SCH (08:25)
[2019-06-15] MEDS: MINERAL OIL/PETROLATUM OPH OINT 3.5 GM TUBE BOTH EYES SCH ×3 (08:25→21:41)
[2019-06-15] MEDS: DESITIN 4OZ/NYSTATIN 15 GRAM MIXTURE PASTE TOP SCH ×2 (08:25→21:27)
[2019-06-15] MEDS: FLUCONAZOLE INJ 100 MG in IV BAG 1 EACH IV SCH (11:58)
[2019-06-15] MEDS: BENZONATATE 100 MG CAPSULE PO PRN (14:01)
[2019-06-15] MEDS: ENOXAPARIN 40 MG/0.4 ML SYRINGE SUBCUT SCH (19:57)
[2019-06-16] MEDS: INSULIN REGULAR 100 UNIT/ML SUBCUT SCH ×4 (00:08→17:54)
[2019-06-16] MEDS: hydrALAZINE 20 MG/1 ML VIAL IV PRN (00:22)
[2019-06-16] MEDS: SODIUM CHLORIDE 0.9% 1,000 ML IV SCH ×4 (02:43→21:26)
[2019-06-16] MEDS: ALBUTEROL/IPRATROPIUM 3 ML NEB RESP TX SCH ×5 (03:25→20:45)
[2019-06-16 04:09] LABS: ABG Base Excess 0.8 MMOL/L (-2.5-2.5); ABG HCO3 25.2 MMOL/L (20-26); ABG PCO2 32.3 MM HG (35-48); ABG PH 7.476 (7.35-7.45); ABG TCO2 21.3 MMOL/L (23-27)
[2019-06-16] MEDS: PHENYTOIN 100 MG/2 ML VIAL IV SCH ×3 (04:39→21:21)
[2019-06-16 04:51] LABS: Prealbumin 20.6 MG/DL (20-40)
[2019-06-16] MEDS: POTASSIUM CHLORIDE RIDER 20 MEQ in PREMIX 1 EACH IV PRN ×2 (05:27→06:00)
[2019-06-16] MEDS: BUDESONIDE 0.5 MG/2 ML NEB RESP TX SCH ×2 (08:00→20:46)
[2019-06-16] MEDS: hydroCHLOROthiazide 25 MG TABLET NG SCH (10:04)
[2019-06-16] MEDS: DOCUSATE/SENNA 50-8.6 MG TABLET PO SCH ×2 (10:04→21:20)
[2019-06-16] MEDS: MINERAL OIL/PETROLATUM OPH OINT 3.5 GM TUBE BOTH EYES SCH ×3 (10:04→21:20)
[2019-06-16] MEDS: DESITIN 4OZ/NYSTATIN 15 GRAM MIXTURE PASTE TOP SCH ×2 (10:04→21:20)
[2019-06-16] MEDS: ASPIRIN CHEW 81 MG TABLET PO SCH (10:04)
[2019-06-16] MEDS: PANTOPRAZOLE 40 MG VIAL IV SCH (10:04)
[2019-06-16] MEDS: METOPROLOL TARTRATE 50 MG TABLET PO SCH ×2 (10:04→21:19)
[2019-06-16] MEDS: lisinopriL 20 MG TABLET NG SCH (10:04)
[2019-06-16] MEDS: BENZONATATE 100 MG CAPSULE PO PRN ×2 (10:05→15:28)
[2019-06-16] MEDS: FLUCONAZOLE INJ 100 MG in IV BAG 1 EACH IV SCH (13:11)
[2019-06-16] MEDS: ENOXAPARIN 40 MG/0.4 ML SYRINGE SUBCUT SCH (20:36)
[2019-06-16] MEDS: DORNASE ALFA 2.5 MG/2.5 ML VIAL RESP TX SCH (20:46)
[2019-06-17] MEDS: INSULIN REGULAR 100 UNIT/ML SUBCUT SCH ×3 (00:11→14:14)
[2019-06-17] MEDS: ALBUTEROL/IPRATROPIUM 3 ML NEB RESP TX SCH ×7 (00:27→23:47)
[2019-06-17 05:09] LABS: ABG Base Excess 1.3 MMOL/L (-2.5-2.5); ABG HCO3 24.7 MMOL/L (20-26); ABG Oxygen Saturation 97.5 % (95-100); ABG PCO2 34.3 MM HG (35-48); ABG PH 7.475 (7.35-7.45); ABG PO2 102.5 MM HG (80-95); ABG TCO2 25.7 MMOL/L (23-27); Allen Test Positive
[2019-06-17] MEDS: PHENYTOIN 100 MG/2 ML VIAL IV SCH ×3 (05:27→21:12)
[2019-06-17] MEDS: SODIUM CHLORIDE 0.9% 1,000 ML IV SCH (05:30)
[2019-06-17 05:33] LABS: Albumin 2.6 G/DL (3.4-5.0); Bilirubin,Total 0.6 MG/DL (0.2-1.0); Calcium 9.2 MG/DL (8.5-10.1); Osmolality,Calculated 288.8 MOS/KG (273-304); Total Protein 6.8 G/DL (6.4-8.3)
[2019-06-17] MEDS: BUDESONIDE 0.5 MG/2 ML NEB RESP TX SCH ×2 (08:15→19:51)
[2019-06-17] MEDS: DORNASE ALFA 2.5 MG/2.5 ML VIAL RESP TX SCH ×2 (08:15→20:01)
[2019-06-17] MEDS: PANTOPRAZOLE 40 MG VIAL IV SCH (10:42)
[2019-06-17] MEDS: METOPROLOL TARTRATE 50 MG TABLET PO SCH ×2 (10:45→21:11)
[2019-06-17] MEDS: DOCUSATE/SENNA 50-8.6 MG TABLET PO SCH ×2 (10:46→21:11)
[2019-06-17] MEDS: hydroCHLOROthiazide 25 MG TABLET NG SCH (10:46)
[2019-06-17] MEDS: lisinopriL 20 MG TABLET NG SCH (10:46)
[2019-06-17] MEDS: ASPIRIN CHEW 81 MG TABLET PO SCH (10:46)
[2019-06-17] MEDS: DESITIN 4OZ/NYSTATIN 15 GRAM MIXTURE PASTE TOP SCH ×2 (10:47→21:11)
[2019-06-17] MEDS: MINERAL OIL/PETROLATUM OPH OINT 3.5 GM TUBE BOTH EYES SCH ×3 (10:50→21:12)
[2019-06-17] MEDS: FLUCONAZOLE INJ 100 MG in IV BAG 1 EACH IV SCH (14:17)
[2019-06-17] MEDS: hydrALAZINE 20 MG/1 ML VIAL IV PRN ×2 (15:24→15:25)
[2019-06-17] MEDS: POTASSIUM CHLORIDE RIDER 10 MEQ in PREMIX 1 EACH IV PRN ×2 (18:27→19:31)
[2019-06-17] MEDS: ENOXAPARIN 40 MG/0.4 ML SYRINGE SUBCUT SCH (20:04)
[2019-06-17 20:08] LABS: Alanine Aminotransferase 67 U/L (13-56); Albumin 2.9 G/DL (3.4-5.0); Alkaline Phosphatase 277 U/L (45-117); Aspartate Amino Transferase 60 U/L (0-37); Bilirubin,Total < 0.39 MG/DL (0.2-1.0); Blood Urea Nitrogen 15 MG/DL (7-18); Calcium 9.8 MG/DL (8.5-10.1); Estimated Glom Filtration Rate 135 ML/MIN; Glucose 132 MG/DL (74-106); Osmolality,Calculated 275.8 MOS/KG (273-304); Total Protein 7.8 G/DL (6.4-8.3)
[2019-06-18] MEDS: ALBUTEROL/IPRATROPIUM 3 ML NEB RESP TX SCH ×6 (02:25→23:20)
[2019-06-18 04:02] LABS: ABG Base Excess 1.9 MMOL/L (-2.5-2.5); ABG HCO3 26.1 MMOL/L (20-26); ABG PH 7.457 (7.35-7.45); ABG TCO2 22.3 MMOL/L (23-27)
[2019-06-18 04:59] LABS: Basophils # 0.1 10*3/uL (0.0-0.2); Basophils % 0.8 % (0.0-0.8); Eosinophils # 0.6 10*3/uL (0.0-0.87); Hematocrit 37.3 VOL% (35.7-47.0); Hemoglobin 12.1 GM/DL (12.0-16.0); Immature Granulocytes % 1.8 %; Immature Granulocytes Absolute 0.23 #; Lymphocytes # 1.4 10*3/uL (1.4-4.0); Lymphocytes % 11.4 % (21.3-54.2); Mean Corpuscular HGB Conc 32.4 GM/DL (32-36); Mean Corpuscular Volume 92.8 FL (87-102); Mean Platelet Volume 11.1 FL (9.6-12.0); Platelet Count 417 T/CUMM (130-400); Red Blood Count 4.02 MC/CUMM (3.8-5.5); Red Cell Distribution Width 12.7 % (9.3-17.3); White Blood Count 12.5 T/CUMM (4-12)
[2019-06-18] MEDS: PHENYTOIN 100 MG/2 ML VIAL IV SCH ×3 (05:28→21:56)
[2019-06-18 06:40] LABS: Calcium 9.9 MG/DL (8.5-10.1); Osmolality,Calculated 280.7 MOS/KG (273-304)
[2019-06-18] MEDS: INSULIN REGULAR 100 UNIT/ML SUBCUT SCH (07:50)
[2019-06-18] MEDS: BUDESONIDE 0.5 MG/2 ML NEB RESP TX SCH ×2 (08:30→19:00)
[2019-06-18] MEDS: DORNASE ALFA 2.5 MG/2.5 ML VIAL RESP TX SCH ×2 (08:40→19:00)
[2019-06-18] MEDS: DOCUSATE/SENNA 50-8.6 MG TABLET PO SCH ×2 (08:59→21:56)
[2019-06-18] MEDS: hydroCHLOROthiazide 25 MG TABLET NG SCH (08:59)
[2019-06-18] MEDS: METOPROLOL TARTRATE 50 MG TABLET PO SCH ×2 (08:59→21:56)
[2019-06-18] MEDS: lisinopriL 20 MG TABLET NG SCH (08:59)
[2019-06-18] MEDS: PANTOPRAZOLE 40 MG VIAL IV SCH (09:00)
[2019-06-18] MEDS: ASPIRIN CHEW 81 MG TABLET PO SCH (09:00)
[2019-06-18] MEDS: DESITIN 4OZ/NYSTATIN 15 GRAM MIXTURE PASTE TOP SCH ×2 (09:07→21:56)
[2019-06-18] MEDS: MINERAL OIL/PETROLATUM OPH OINT 3.5 GM TUBE BOTH EYES SCH (09:07)
[2019-06-18] MEDS: FLUCONAZOLE INJ 100 MG in IV BAG 1 EACH IV SCH (12:16)
[2019-06-18] MEDS: ENOXAPARIN 40 MG/0.4 ML SYRINGE SUBCUT SCH (20:05)
[2019-06-19] MEDS: ALBUTEROL/IPRATROPIUM 3 ML NEB RESP TX SCH ×5 (03:30→19:22)
[2019-06-19 03:38] LABS: ABG HCO3 27.1 MMOL/L (20-26); ABG Oxygen Saturation 97.8 % (95-100); ABG PCO2 38.5 MM HG (35-48); ABG PH 7.453 (7.35-7.45)
[2019-06-19 05:16] LABS: Basophils # 0.1 10*3/uL (0.0-0.2); Basophils % 0.8 % (0.0-0.8); Eosinophils # 0.8 10*3/uL (0.0-0.87); Eosinophils % 5.5 % (0.00-10.9); Hematocrit 39.7 VOL% (35.7-47.0); Hemoglobin 13.1 GM/DL (12.0-16.0); Immature Granulocytes % 1.9 %; Immature Granulocytes Absolute 0.28 #; Lymphocytes % 13.6 % (21.3-54.2); Mean Corpuscular Volume 91.1 FL (87-102); Mean Platelet Volume 11.5 FL (9.6-12.0); Monocytes % 6.8 % (1.7-12.7); Neutrophils % 71.4 % (38.7-73.9); Platelet Count 447 T/CUMM (130-400); Red Blood Count 4.36 MC/CUMM (3.8-5.5); Red Cell Distribution Width 12.8 % (9.3-17.3); White Blood Count 14.6 T/CUMM (4-12)
[2019-06-19 05:30] LABS: Calcium 10.4 MG/DL (8.5-10.1)
[2019-06-19] MEDS: INSULIN REGULAR 100 UNIT/ML SUBCUT SCH (07:52)
[2019-06-19] MEDS: PHENYTOIN 100 MG/2 ML VIAL IV SCH ×3 (07:59→20:10)
[2019-06-19] MEDS: BUDESONIDE 0.5 MG/2 ML NEB RESP TX SCH ×2 (08:11→19:22)
[2019-06-19] MEDS: DORNASE ALFA 2.5 MG/2.5 ML VIAL RESP TX SCH ×2 (08:23→19:22)
[2019-06-19] MEDS: PANTOPRAZOLE 40 MG VIAL IV SCH (08:55)
[2019-06-19] MEDS: MUPIROCIN 2% OINT 22 GM TUBE TOP SCH ×2 (08:59→20:13)
[2019-06-19] MEDS: ASPIRIN CHEW 81 MG TABLET PO SCH (08:59)
[2019-06-19] MEDS: METOPROLOL TARTRATE 50 MG TABLET PO SCH (08:59)
[2019-06-19] MEDS: lisinopriL 20 MG TABLET NG SCH (08:59)
[2019-06-19] MEDS: hydroCHLOROthiazide 25 MG TABLET NG SCH (08:59)
[2019-06-19] MEDS: DOCUSATE/SENNA 50-8.6 MG TABLET PO SCH ×2 (08:59→20:10)
[2019-06-19] MEDS: DESITIN 4OZ/NYSTATIN 15 GRAM MIXTURE PASTE TOP SCH ×2 (09:00→20:13)
[2019-06-19] MEDS: FLUCONAZOLE INJ 100 MG in IV BAG 1 EACH IV SCH (12:52)
[2019-06-19] MEDS: METOPROLOL TARTRATE 25 MG TABLET PO SCH ×2 (14:06→21:15)
[2019-06-19] MEDS: ENOXAPARIN 40 MG/0.4 ML SYRINGE SUBCUT SCH (20:10)
[2019-06-20] MEDS: ALBUTEROL/IPRATROPIUM 3 ML NEB RESP TX SCH ×7 (00:10→23:20)
[2019-06-20] MEDS: MINERAL OIL ENEMA 133 ML BOTTLE RECTAL PRN (00:15)
[2019-06-20 02:56] LABS: ABG Base Excess 2.3 MMOL/L (-2.5-2.5); ABG HCO3 26.4 MMOL/L (20-26); ABG PH 7.462 (7.35-7.45); ABG PO2 96.9 MM HG (80-95); ABG TCO2 22.4 MMOL/L (23-27); Allen Test Positive; Pt O2 Delivery Device Other
[2019-06-20] MEDS: PHENYTOIN 100 MG/2 ML VIAL IV SCH ×3 (05:12→22:13)
[2019-06-20] MEDS: METOPROLOL TARTRATE 25 MG TABLET PO SCH ×3 (05:16→22:26)
[2019-06-20] MEDS: INSULIN REGULAR 100 UNIT/ML SUBCUT SCH (06:28)
[2019-06-20] MEDS: BUDESONIDE 0.5 MG/2 ML NEB RESP TX SCH ×2 (08:02→19:20)
[2019-06-20] MEDS: DORNASE ALFA 2.5 MG/2.5 ML VIAL RESP TX SCH ×2 (08:02→19:31)
[2019-06-20] MEDS: lisinopriL 20 MG TABLET NG SCH (09:20)
[2019-06-20] MEDS: FLUCONAZOLE INJ 200 MG in PREMIX 1 EACH IV SCH (09:21)
[2019-06-20] MEDS: DOCUSATE/SENNA 50-8.6 MG TABLET PO SCH ×2 (09:21→22:13)
[2019-06-20] MEDS: ASPIRIN CHEW 81 MG TABLET PO SCH (09:21)
[2019-06-20] MEDS: PANTOPRAZOLE 40 MG VIAL IV SCH (09:21)
[2019-06-20] MEDS: hydroCHLOROthiazide 25 MG TABLET NG SCH (09:21)
[2019-06-20] MEDS: MUPIROCIN 2% OINT 22 GM TUBE TOP SCH ×2 (09:21→22:58)
[2019-06-20] MEDS: DESITIN 4OZ/NYSTATIN 15 GRAM MIXTURE PASTE TOP SCH ×2 (09:34→22:14)
[2019-06-20] MEDS: ENOXAPARIN 40 MG/0.4 ML SYRINGE SUBCUT SCH (18:44)
[2019-06-20] MEDS: BENZONATATE 100 MG CAPSULE PO PRN (22:14)
[2019-06-21] MEDS: ALBUTEROL/IPRATROPIUM 3 ML NEB RESP TX SCH ×6 (03:25→23:29)
[2019-06-21] MEDS: PHENYTOIN 100 MG/2 ML VIAL IV SCH ×3 (05:08→20:57)
[2019-06-21 05:44] LABS: Basophils # 0.1 10*3/uL (0.0-0.2); Basophils % 0.7 % (0.0-0.8); Eosinophils # 0.5 10*3/uL (0.0-0.87); Eosinophils % 2.9 % (0.00-10.9); Hematocrit 38.1 VOL% (35.7-47.0); Hemoglobin 12.9 GM/DL (12.0-16.0); Immature Granulocytes % 1.5 %; Immature Granulocytes Absolute 0.25 #; Lymphocytes # 2.3 10*3/uL (1.4-4.0); Lymphocytes % 13.9 % (21.3-54.2); Mean Corpuscular HGB Conc 33.9 GM/DL (32-36); Mean Corpuscular Volume 91.6 FL (87-102); Mean Platelet Volume 11.2 FL (9.6-12.0); Monocytes % 7.6 % (1.7-12.7); Neutrophils % 73.4 % (38.7-73.9); Platelet Count 425 T/CUMM (130-400); Red Blood Count 4.16 MC/CUMM (3.8-5.5); Red Cell Distribution Width 13.3 % (9.3-17.3); White Blood Count 16.3 T/CUMM (4-12)
[2019-06-21 06:05] LABS: Calcium 10.1 MG/DL (8.5-10.1); Osmolality,Calculated 280.2 MOS/KG (273-304)
[2019-06-21] MEDS: METOPROLOL TARTRATE 25 MG TABLET PO SCH ×3 (06:24→22:22)
[2019-06-21] MEDS: PANTOPRAZOLE 40 MG VIAL IV SCH (07:10)
[2019-06-21] MEDS: BUDESONIDE 0.5 MG/2 ML NEB RESP TX SCH ×2 (07:50→19:43)
[2019-06-21] MEDS: DORNASE ALFA 2.5 MG/2.5 ML VIAL RESP TX SCH ×2 (07:50→21:30)
[2019-06-21] MEDS: INSULIN REGULAR 100 UNIT/ML SUBCUT SCH (08:09)
[2019-06-21] MEDS: MUPIROCIN 2% OINT 22 GM TUBE TOP SCH ×2 (08:12→20:57)
[2019-06-21] MEDS: ACETAMINOPHEN 325 MG TABLET PO PRN (08:12)
[2019-06-21] MEDS: hydroCHLOROthiazide 25 MG TABLET NG SCH (08:12)
[2019-06-21] MEDS: DESITIN 4OZ/NYSTATIN 15 GRAM MIXTURE PASTE TOP SCH ×2 (08:12→20:57)
[2019-06-21] MEDS: DOCUSATE/SENNA 50-8.6 MG TABLET PO SCH ×2 (08:12→20:57)
[2019-06-21] MEDS: lisinopriL 20 MG TABLET NG SCH (08:12)
[2019-06-21] MEDS: ASPIRIN CHEW 81 MG TABLET PO SCH (08:12)
[2019-06-21] MEDS: FLUCONAZOLE INJ 200 MG in PREMIX 1 EACH IV SCH (08:18)
[2019-06-21] MEDS: ENOXAPARIN 40 MG/0.4 ML SYRINGE SUBCUT SCH (19:44)
[2019-06-22] MEDS: ALBUTEROL/IPRATROPIUM 3 ML NEB RESP TX SCH ×5 (03:35→19:48)
[2019-06-22 05:17] LABS: Basophils # 0.1 10*3/uL (0.0-0.2); Basophils % 0.8 % (0.0-0.8); Eosinophils # 0.7 10*3/uL (0.0-0.87); Eosinophils % 4.7 % (0.00-10.9); Hemoglobin 12.1 GM/DL (12.0-16.0); Immature Granulocytes % 1.4 %; Lymphocytes # 2.3 10*3/uL (1.4-4.0); Lymphocytes % 16.3 % (21.3-54.2); Mean Corpuscular HGB Conc 32.7 GM/DL (32-36); Mean Corpuscular Volume 93.2 FL (87-102); Mean Platelet Volume 11.7 FL (9.6-12.0); Monocytes % 7.9 % (1.7-12.7); Neutrophils % 68.9 % (38.7-73.9); Platelet Count 306 T/CUMM (130-400); Red Blood Count 3.97 MC/CUMM (3.8-5.5); Red Cell Distribution Width 13.3 % (9.3-17.3); White Blood Count 13.8 T/CUMM (4-12)
[2019-06-22] MEDS: PHENYTOIN 100 MG/2 ML VIAL IV SCH ×3 (05:22→21:19)
[2019-06-22 05:44] LABS: Calcium 10.2 MG/DL (8.5-10.1); Osmolality,Calculated 276.7 MOS/KG (273-304)
[2019-06-22] MEDS: METOPROLOL TARTRATE 25 MG TABLET PO SCH ×3 (06:45→21:19)
[2019-06-22] MEDS: DORNASE ALFA 2.5 MG/2.5 ML VIAL RESP TX SCH ×2 (08:07→19:48)
[2019-06-22] MEDS: BUDESONIDE 0.5 MG/2 ML NEB RESP TX SCH ×2 (08:07→19:48)
[2019-06-22] MEDS: PANTOPRAZOLE 40 MG VIAL IV SCH (08:13)
[2019-06-22] MEDS: DOCUSATE/SENNA 50-8.6 MG TABLET PO SCH ×2 (08:14→21:19)
[2019-06-22] MEDS: hydroCHLOROthiazide 25 MG TABLET NG SCH (08:14)
[2019-06-22] MEDS: DESITIN 4OZ/NYSTATIN 15 GRAM MIXTURE PASTE TOP SCH ×2 (08:14→21:31)
[2019-06-22] MEDS: ASPIRIN CHEW 81 MG TABLET PO SCH (08:14)
[2019-06-22] MEDS: lisinopriL 20 MG TABLET NG SCH (08:14)
[2019-06-22] MEDS: MUPIROCIN 2% OINT 22 GM TUBE TOP SCH ×2 (08:15→21:31)
[2019-06-22] MEDS: INSULIN REGULAR 100 UNIT/ML SUBCUT SCH (08:24)
[2019-06-22] MEDS: FLUCONAZOLE INJ 200 MG in PREMIX 1 EACH IV SCH (08:24)
[2019-06-22] MEDS: ENOXAPARIN 40 MG/0.4 ML SYRINGE SUBCUT SCH (21:19)
[2019-06-23] MEDS: ALBUTEROL/IPRATROPIUM 3 ML NEB RESP TX SCH ×7 (00:15→23:51)
[2019-06-23 05:26] LABS: Calcium 9.7 MG/DL (8.5-10.1); Osmolality,Calculated 279.5 MOS/KG (273-304); Prealbumin 31.6 MG/DL (20-40)
[2019-06-23] MEDS: PHENYTOIN 100 MG/2 ML VIAL IV SCH ×3 (05:53→20:32)
[2019-06-23] MEDS: INSULIN REGULAR 100 UNIT/ML SUBCUT SCH (06:25)
[2019-06-23] MEDS: METOPROLOL TARTRATE 25 MG TABLET PO SCH ×3 (06:26→22:32)
[2019-06-23] MEDS: BUDESONIDE 0.5 MG/2 ML NEB RESP TX SCH ×2 (08:03→19:30)
[2019-06-23] MEDS: DORNASE ALFA 2.5 MG/2.5 ML VIAL RESP TX SCH ×2 (08:13→19:30)
[2019-06-23] MEDS: PANTOPRAZOLE 40 MG VIAL IV SCH (09:41)
[2019-06-23] MEDS: hydroCHLOROthiazide 25 MG TABLET NG SCH (09:43)
[2019-06-23] MEDS: DESITIN 4OZ/NYSTATIN 15 GRAM MIXTURE PASTE TOP SCH ×2 (09:43→20:33)
[2019-06-23] MEDS: lisinopriL 20 MG TABLET NG SCH (09:43)
[2019-06-23] MEDS: DOCUSATE/SENNA 50-8.6 MG TABLET PO SCH ×2 (09:43→20:32)
[2019-06-23] MEDS: ASPIRIN CHEW 81 MG TABLET PO SCH (09:43)
[2019-06-23] MEDS: MUPIROCIN 2% OINT 22 GM TUBE TOP SCH ×2 (09:44→20:32)
[2019-06-23] MEDS: FLUCONAZOLE INJ 200 MG in PREMIX 1 EACH IV SCH (13:33)
[2019-06-23] MEDS: ENOXAPARIN 40 MG/0.4 ML SYRINGE SUBCUT SCH (20:32)
[2019-06-24] MEDS: ALBUTEROL/IPRATROPIUM 3 ML NEB RESP TX SCH ×6 (03:25→23:28)
[2019-06-24 05:20] LABS: Basophils # 0.1 10*3/uL (0.0-0.2); Basophils % 0.6 % (0.0-0.8); Eosinophils # 0.5 10*3/uL (0.0-0.87); Eosinophils % 3.6 % (0.00-10.9); Hematocrit 37.1 VOL% (35.7-47.0); Hemoglobin 12.3 GM/DL (12.0-16.0); Immature Granulocytes Absolute 0.13 #; Lymphocytes # 2.1 10*3/uL (1.4-4.0); Lymphocytes % 15.8 % (21.3-54.2); Mean Corpuscular HGB Conc 33.2 GM/DL (32-36); Mean Corpuscular Volume 92.3 FL (87-102); Monocytes % 8.1 % (1.7-12.7); Neutrophils % 70.9 % (38.7-73.9); Platelet Count 362 T/CUMM (130-400); Red Blood Count 4.02 MC/CUMM (3.8-5.5); Red Cell Distribution Width 13.2 % (9.3-17.3)
[2019-06-24] MEDS: METOPROLOL TARTRATE 25 MG TABLET PO SCH ×3 (05:50→21:52)
[2019-06-24] MEDS: PHENYTOIN 100 MG/2 ML VIAL IV SCH ×3 (05:54→21:46)
[2019-06-24 05:57] LABS: Osmolality,Calculated 284.2 MOS/KG (273-304)
[2019-06-24] MEDS: INSULIN REGULAR 100 UNIT/ML SUBCUT SCH (06:23)
[2019-06-24] MEDS: BUDESONIDE 0.5 MG/2 ML NEB RESP TX SCH ×2 (08:33→19:49)
[2019-06-24] MEDS: DORNASE ALFA 2.5 MG/2.5 ML VIAL RESP TX SCH ×2 (08:33→19:49)
[2019-06-24] MEDS: PANTOPRAZOLE 40 MG VIAL IV SCH (09:11)
[2019-06-24] MEDS: ASPIRIN CHEW 81 MG TABLET PO SCH (09:17)
[2019-06-24] MEDS: DOCUSATE/SENNA 50-8.6 MG TABLET PO SCH ×2 (09:17→21:46)
[2019-06-24] MEDS: lisinopriL 20 MG TABLET NG SCH (09:17)
[2019-06-24] MEDS: hydroCHLOROthiazide 25 MG TABLET NG SCH (09:17)
[2019-06-24] MEDS: FLUCONAZOLE INJ 200 MG in PREMIX 1 EACH IV SCH (09:18)
[2019-06-24] MEDS: DESITIN 4OZ/NYSTATIN 15 GRAM MIXTURE PASTE TOP SCH ×2 (09:18→21:48)
[2019-06-24] MEDS: MUPIROCIN 2% OINT 22 GM TUBE TOP SCH ×2 (09:18→22:25)
[2019-06-24] MEDS: ALBUTEROL 2.5 MG/3 ML NEB RESP TX PRN (19:47)
[2019-06-24] MEDS: ENOXAPARIN 40 MG/0.4 ML SYRINGE SUBCUT SCH (20:10)
[2019-06-25] MEDS: ALBUTEROL/IPRATROPIUM 3 ML NEB RESP TX SCH ×6 (04:06→23:32)
[2019-06-25] MEDS: PHENYTOIN 100 MG/2 ML VIAL IV SCH ×3 (05:15→21:56)
[2019-06-25] MEDS: METOPROLOL TARTRATE 25 MG TABLET PO SCH ×4 (06:21→22:06)
[2019-06-25] MEDS: BUDESONIDE 0.5 MG/2 ML NEB RESP TX SCH ×2 (08:08→19:45)
[2019-06-25] MEDS: DORNASE ALFA 2.5 MG/2.5 ML VIAL RESP TX SCH ×2 (08:17→19:56)
[2019-06-25] MEDS: INSULIN REGULAR 100 UNIT/ML SUBCUT SCH (08:23)
[2019-06-25] MEDS: FLUCONAZOLE INJ 200 MG in PREMIX 1 EACH IV SCH (09:35)
[2019-06-25] MEDS: lisinopriL 20 MG TABLET NG SCH (09:36)
[2019-06-25] MEDS: DOCUSATE/SENNA 50-8.6 MG TABLET PO SCH ×2 (09:36→22:10)
[2019-06-25] MEDS: ASPIRIN CHEW 81 MG TABLET PO SCH (09:36)
[2019-06-25] MEDS: hydroCHLOROthiazide 25 MG TABLET NG SCH (09:37)
[2019-06-25] MEDS: DESITIN 4OZ/NYSTATIN 15 GRAM MIXTURE PASTE TOP SCH ×2 (09:37→22:07)
[2019-06-25] MEDS: MUPIROCIN 2% OINT 22 GM TUBE TOP SCH ×2 (09:37→21:56)
[2019-06-25] MEDS: PANTOPRAZOLE 40 MG VIAL IV SCH (09:39)
[2019-06-25] MEDS: ENOXAPARIN 40 MG/0.4 ML SYRINGE SUBCUT SCH (21:56)
[2019-06-26] MEDS: ALBUTEROL/IPRATROPIUM 3 ML NEB RESP TX SCH ×6 (02:55→23:44)
[2019-06-26] MEDS: PHENYTOIN 100 MG/2 ML VIAL IV SCH ×3 (05:03→22:23)
[2019-06-26 07:09] LABS: Calcium 9.7 MG/DL (8.5-10.1); Osmolality,Calculated 276.4 MOS/KG (273-304)
[2019-06-26 07:13] LABS: Basophils # 0.1 10*3/uL (0.0-0.2); Basophils % 0.7 % (0.0-0.8); Eosinophils # 0.5 10*3/uL (0.0-0.87); Hemoglobin 12.3 GM/DL (12.0-16.0); Immature Granulocytes % 0.9 %; Immature Granulocytes Absolute 0.11 #; Lymphocytes # 2.3 10*3/uL (1.4-4.0); Lymphocytes % 19.6 % (21.3-54.2); Mean Corpuscular HGB Conc 32.4 GM/DL (32-36); Mean Corpuscular Volume 93.4 FL (87-102); Mean Platelet Volume 12.1 FL (9.6-12.0); Monocytes % 8.7 % (1.7-12.7); Neutrophils % 66.1 % (38.7-73.9); Platelet Count 211 T/CUMM (130-400); Red Blood Count 4.07 MC/CUMM (3.8-5.5); Red Cell Distribution Width 13.3 % (9.3-17.3); White Blood Count 11.9 T/CUMM (4-12)
[2019-06-26] MEDS: DORNASE ALFA 2.5 MG/2.5 ML VIAL RESP TX SCH ×2 (07:51→19:18)
[2019-06-26] MEDS: BUDESONIDE 0.5 MG/2 ML NEB RESP TX SCH ×2 (07:51→19:18)
[2019-06-26] MEDS: INSULIN REGULAR 100 UNIT/ML SUBCUT SCH (08:08)
[2019-06-26] MEDS: PANTOPRAZOLE 40 MG VIAL IV SCH (09:58)
[2019-06-26] MEDS: FLUCONAZOLE INJ 200 MG in PREMIX 1 EACH IV SCH (09:58)
[2019-06-26] MEDS: lisinopriL 20 MG TABLET NG SCH (09:59)
[2019-06-26] MEDS: DOCUSATE/SENNA 50-8.6 MG TABLET PO SCH ×2 (09:59→22:22)
[2019-06-26] MEDS: ASPIRIN CHEW 81 MG TABLET PO SCH (09:59)
[2019-06-26] MEDS: hydroCHLOROthiazide 25 MG TABLET NG SCH (10:00)
[2019-06-26] MEDS: METOPROLOL TARTRATE 25 MG TABLET PO SCH ×3 (10:00→22:23)
[2019-06-26] MEDS: DESITIN 4OZ/NYSTATIN 15 GRAM MIXTURE PASTE TOP SCH ×2 (10:04→22:27)
[2019-06-26] MEDS: MUPIROCIN 2% OINT 22 GM TUBE TOP SCH ×2 (10:04→22:26)
[2019-06-26] MEDS: ENOXAPARIN 40 MG/0.4 ML SYRINGE SUBCUT SCH (22:26)
[2019-06-27] MEDS: ALBUTEROL/IPRATROPIUM 3 ML NEB RESP TX SCH ×6 (03:10→22:24)
[2019-06-27] MEDS: PHENYTOIN 100 MG/2 ML VIAL IV SCH (05:27)
[2019-06-27] MEDS: METOPROLOL TARTRATE 25 MG TABLET PO SCH ×3 (05:31→18:22)
[2019-06-27] MEDS: DORNASE ALFA 2.5 MG/2.5 ML VIAL RESP TX SCH ×2 (06:51→20:00)
[2019-06-27] MEDS: BUDESONIDE 0.5 MG/2 ML NEB RESP TX SCH ×2 (06:51→19:50)
[2019-06-27] MEDS: INSULIN REGULAR 100 UNIT/ML SUBCUT SCH (08:17)
[2019-06-27] MEDS: lisinopriL 20 MG TABLET NG SCH (10:51)
[2019-06-27] MEDS: FLUCONAZOLE INJ 200 MG in PREMIX 1 EACH IV SCH (10:51)
[2019-06-27] MEDS: DOCUSATE/SENNA 50-8.6 MG TABLET PO SCH ×2 (10:51→21:55)
[2019-06-27] MEDS: hydroCHLOROthiazide 25 MG TABLET NG SCH (10:52)
[2019-06-27] MEDS: MUPIROCIN 2% OINT 22 GM TUBE TOP SCH ×2 (10:52→22:05)
[2019-06-27] MEDS: ASPIRIN CHEW 81 MG TABLET PO SCH (10:52)
[2019-06-27] MEDS: DESITIN 4OZ/NYSTATIN 15 GRAM MIXTURE PASTE TOP SCH ×2 (10:52→21:52)
[2019-06-27] MEDS: PANTOPRAZOLE 40 MG VIAL IV SCH (10:53)
[2019-06-27] MEDS: PHENYTOIN 100 MG/4 ML UDCUP PEG SCH ×2 (16:07→21:54)
[2019-06-27] MEDS: MINERAL OIL ENEMA 133 ML BOTTLE RECTAL PRN (16:34)
[2019-06-27] MEDS: ENOXAPARIN 40 MG/0.4 ML SYRINGE SUBCUT SCH (21:53)
[2019-06-28] MEDS: ALBUTEROL/IPRATROPIUM 3 ML NEB RESP TX SCH ×5 (02:43→19:45)
[2019-06-28] MEDS: LANSOPRAZOLE ODT 30 MG TABLET PEG SCH (07:20)
[2019-06-28] MEDS ORDERED: SODIUM CHLORIDE 0.9% 1,000 ML IV ONE (07:51)
[2019-06-28] MEDS: INSULIN REGULAR 100 UNIT/ML SUBCUT SCH (08:12)
[2019-06-28] MEDS: BUDESONIDE 0.5 MG/2 ML NEB RESP TX SCH ×2 (08:21→19:45)
[2019-06-28] MEDS: DORNASE ALFA 2.5 MG/2.5 ML VIAL RESP TX SCH (08:31)
[2019-06-28] MEDS: DOCUSATE/SENNA 50-8.6 MG TABLET PO SCH ×2 (09:35→21:30)
[2019-06-28] MEDS: MUPIROCIN 2% OINT 22 GM TUBE TOP SCH ×2 (09:35→21:29)
[2019-06-28] MEDS: PHENYTOIN 100 MG/4 ML UDCUP PEG SCH ×3 (09:35→21:28)
[2019-06-28] MEDS: ASPIRIN CHEW 81 MG TABLET PO SCH (09:35)
[2019-06-28] MEDS: DESITIN 4OZ/NYSTATIN 15 GRAM MIXTURE PASTE TOP SCH ×2 (09:36→21:28)
[2019-06-28] MEDS: ENOXAPARIN 40 MG/0.4 ML SYRINGE SUBCUT SCH (21:28)
[2019-06-28] MEDS: METOPROLOL TARTRATE 25 MG TABLET PO SCH (21:28)
[2019-06-29] MEDS: ALBUTEROL/IPRATROPIUM 3 ML NEB RESP TX SCH ×6 (00:45→19:45)
[2019-06-29 05:24] LABS: Basophils # 0.1 10*3/uL (0.0-0.2); Basophils % 0.5 % (0.0-0.8); Eosinophils # 0.7 10*3/uL (0.0-0.87); Eosinophils % 5.7 % (0.00-10.9); Hematocrit 32.7 VOL% (35.7-47.0); Hemoglobin 11.1 GM/DL (12.0-16.0); Immature Granulocytes % 0.9 %; Immature Granulocytes Absolute 0.11 #; Lymphocytes # 1.8 10*3/uL (1.4-4.0); Lymphocytes % 14.9 % (21.3-54.2); Mean Corpuscular HGB Conc 33.9 GM/DL (32-36); Mean Corpuscular Volume 90.6 FL (87-102); Mean Platelet Volume 12.4 FL (9.6-12.0); Monocytes % 7.1 % (1.7-12.7); Neutrophils % 70.9 % (38.7-73.9); Platelet Count 222 T/CUMM (130-400); Red Blood Count 3.61 MC/CUMM (3.8-5.5); Red Cell Distribution Width 12.9 % (9.3-17.3); White Blood Count 11.8 T/CUMM (4-12)
[2019-06-29 05:51] LABS: Osmolality,Calculated 277.2 MOS/KG (273-304)
[2019-06-29] MEDS: BUDESONIDE 0.5 MG/2 ML NEB RESP TX SCH ×2 (07:10→19:45)
[2019-06-29] MEDS: INSULIN REGULAR 100 UNIT/ML SUBCUT SCH (07:50)
[2019-06-29] MEDS: LANSOPRAZOLE 3 MG/ML 90 ML/BOTTLE PEG SCH (09:06)
[2019-06-29] MEDS: PHENYTOIN 100 MG/4 ML UDCUP PEG SCH ×3 (09:06→21:03)
[2019-06-29] MEDS: METOPROLOL TARTRATE 25 MG TABLET PO SCH ×2 (09:06→21:03)
[2019-06-29] MEDS: ASPIRIN CHEW 81 MG TABLET PO SCH (09:06)
[2019-06-29] MEDS: DOCUSATE/SENNA 50-8.6 MG TABLET PO SCH ×2 (09:06→21:02)
[2019-06-29] MEDS: LANSOPRAZOLE ODT 30 MG TABLET PEG SCH (09:08)
[2019-06-29] MEDS: MUPIROCIN 2% OINT 22 GM TUBE TOP SCH ×2 (09:15→21:04)
[2019-06-29] MEDS: DESITIN 4OZ/NYSTATIN 15 GRAM MIXTURE PASTE TOP SCH ×2 (09:15→21:04)
[2019-06-29] MEDS: ENOXAPARIN 40 MG/0.4 ML SYRINGE SUBCUT SCH (21:02)
[2019-06-30] MEDS: ALBUTEROL/IPRATROPIUM 3 ML NEB RESP TX SCH ×6 (00:14→19:11)
[2019-06-30 05:22] LABS: Calcium 8.8 MG/DL (8.5-10.1); Prealbumin 22.9 MG/DL (20-40)
[2019-06-30] MEDS: LANSOPRAZOLE 3 MG/ML 90 ML/BOTTLE PEG SCH (06:20)
[2019-06-30] MEDS: INSULIN REGULAR 100 UNIT/ML SUBCUT SCH (07:05)
[2019-06-30] MEDS: BUDESONIDE 0.5 MG/2 ML NEB RESP TX SCH ×2 (07:41→19:11)
[2019-06-30] MEDS: PHENYTOIN 100 MG/4 ML UDCUP PEG SCH ×3 (09:04→20:18)
[2019-06-30] MEDS: DESITIN 4OZ/NYSTATIN 15 GRAM MIXTURE PASTE TOP SCH ×2 (09:04→20:19)
[2019-06-30] MEDS: MUPIROCIN 2% OINT 22 GM TUBE TOP SCH ×2 (09:04→20:19)
[2019-06-30] MEDS: METOPROLOL TARTRATE 25 MG TABLET PO SCH ×2 (09:05→20:18)
[2019-06-30] MEDS: ASPIRIN CHEW 81 MG TABLET PO SCH (09:06)
[2019-06-30] MEDS: DOCUSATE/SENNA 50-8.6 MG TABLET PO SCH ×2 (09:06→20:18)
[2019-06-30] MEDS: ENOXAPARIN 40 MG/0.4 ML SYRINGE SUBCUT SCH (20:19)
[2019-07-01] MEDS: ALBUTEROL/IPRATROPIUM 3 ML NEB RESP TX SCH ×7 (00:20→23:28)
[2019-07-01] MEDS: LANSOPRAZOLE 3 MG/ML 90 ML/BOTTLE PEG SCH (06:37)
[2019-07-01] MEDS: INSULIN REGULAR 100 UNIT/ML SUBCUT SCH (06:37)
[2019-07-01] MEDS: BUDESONIDE 0.5 MG/2 ML NEB RESP TX SCH ×2 (07:40→19:20)
[2019-07-01] MEDS: DOCUSATE/SENNA 50-8.6 MG TABLET PO SCH ×2 (08:53→21:52)
[2019-07-01] MEDS: ASPIRIN CHEW 81 MG TABLET PO SCH (08:53)
[2019-07-01] MEDS: PHENYTOIN 100 MG/4 ML UDCUP PEG SCH ×3 (08:53→21:52)
[2019-07-01] MEDS: METOPROLOL TARTRATE 25 MG TABLET PO SCH ×2 (08:54→21:52)
[2019-07-01] MEDS: DESITIN 4OZ/NYSTATIN 15 GRAM MIXTURE PASTE TOP SCH ×2 (08:57→21:53)
[2019-07-01] MEDS: MUPIROCIN 2% OINT 22 GM TUBE TOP SCH ×2 (08:57→21:53)
[2019-07-01] MEDS: ENOXAPARIN 40 MG/0.4 ML SYRINGE SUBCUT SCH (21:52)
[2019-07-02] MEDS: ALBUTEROL/IPRATROPIUM 3 ML NEB RESP TX SCH ×6 (02:36→23:16)
[2019-07-02] MEDS: LANSOPRAZOLE 3 MG/ML 90 ML/BOTTLE PEG SCH (06:17)
[2019-07-02] MEDS: BUDESONIDE 0.5 MG/2 ML NEB RESP TX SCH ×2 (07:45→19:38)
[2019-07-02] MEDS: ASPIRIN CHEW 81 MG TABLET PO SCH (08:41)
[2019-07-02] MEDS: METOPROLOL TARTRATE 25 MG TABLET PO SCH ×2 (08:41→21:35)
[2019-07-02] MEDS: DOCUSATE/SENNA 50-8.6 MG TABLET PO SCH ×2 (08:41→21:35)
[2019-07-02] MEDS: INSULIN REGULAR 100 UNIT/ML SUBCUT SCH (08:41)
[2019-07-02] MEDS: MUPIROCIN 2% OINT 22 GM TUBE TOP SCH ×2 (08:41→21:35)
[2019-07-02] MEDS: PHENYTOIN 100 MG/4 ML UDCUP PEG SCH ×3 (08:41→21:34)
[2019-07-02] MEDS: DESITIN 4OZ/NYSTATIN 15 GRAM MIXTURE PASTE TOP SCH ×2 (08:42→21:35)
[2019-07-02] MEDS: ENOXAPARIN 40 MG/0.4 ML SYRINGE SUBCUT SCH (21:34)
[2019-07-03] MEDS: ALBUTEROL/IPRATROPIUM 3 ML NEB RESP TX SCH ×6 (03:14→23:25)
[2019-07-03 05:58] LABS: Basophils # 0.1 10*3/uL (0.0-0.2); Basophils % 0.6 % (0.0-0.8); Eosinophils # 0.4 10*3/uL (0.0-0.87); Eosinophils % 4.7 % (0.00-10.9); Hematocrit 33.5 VOL% (35.7-47.0); Hemoglobin 11.3 GM/DL (12.0-16.0); Immature Granulocytes % 1.1 %; Immature Granulocytes Absolute 0.09 #; Lymphocytes # 1.2 10*3/uL (1.4-4.0); Lymphocytes % 15.4 % (21.3-54.2); Mean Corpuscular HGB Conc 33.7 GM/DL (32-36); Mean Platelet Volume 11.5 FL (9.6-12.0); Monocytes % 7.8 % (1.7-12.7); Neutrophils % 70.4 % (38.7-73.9); Platelet Count 336 T/CUMM (130-400); Red Blood Count 3.68 MC/CUMM (3.8-5.5); Red Cell Distribution Width 12.9 % (9.3-17.3); White Blood Count 7.9 T/CUMM (4-12)
[2019-07-03] MEDS: LANSOPRAZOLE 3 MG/ML 90 ML/BOTTLE PEG SCH (06:17)
[2019-07-03 06:35] LABS: Calcium 9.3 MG/DL (8.5-10.1); Osmolality,Calculated 268.5 MOS/KG (273-304)
[2019-07-03] MEDS: BUDESONIDE 0.5 MG/2 ML NEB RESP TX SCH ×2 (07:23→19:40)
[2019-07-03] MEDS: INSULIN REGULAR 100 UNIT/ML SUBCUT SCH (07:37)
[2019-07-03] MEDS: PHENYTOIN 100 MG/4 ML UDCUP PEG SCH ×3 (08:07→21:40)
[2019-07-03] MEDS: DOCUSATE/SENNA 50-8.6 MG TABLET PO SCH ×2 (08:07→21:40)
[2019-07-03] MEDS: DESITIN 4OZ/NYSTATIN 15 GRAM MIXTURE PASTE TOP SCH ×2 (08:08→21:40)
[2019-07-03] MEDS: ASPIRIN CHEW 81 MG TABLET PO SCH (08:08)
[2019-07-03] MEDS: METOPROLOL TARTRATE 25 MG TABLET PO SCH ×2 (08:08→21:40)
[2019-07-03] MEDS: MUPIROCIN 2% OINT 22 GM TUBE TOP SCH ×2 (08:09→21:40)
[2019-07-03] MEDS: ENOXAPARIN 40 MG/0.4 ML SYRINGE SUBCUT SCH (21:40)
[2019-07-04] MEDS: ALBUTEROL/IPRATROPIUM 3 ML NEB RESP TX SCH ×6 (03:37→23:57)
[2019-07-04] MEDS: LANSOPRAZOLE 3 MG/ML 90 ML/BOTTLE PEG SCH (06:15)
[2019-07-04] MEDS: BUDESONIDE 0.5 MG/2 ML NEB RESP TX SCH ×2 (07:11→18:59)
[2019-07-04] MEDS: INSULIN REGULAR 100 UNIT/ML SUBCUT SCH (08:03)
[2019-07-04] MEDS: METOPROLOL TARTRATE 25 MG TABLET PO SCH ×2 (09:53→21:15)
[2019-07-04] MEDS: ASPIRIN CHEW 81 MG TABLET PO SCH (09:53)
[2019-07-04] MEDS: DOCUSATE/SENNA 50-8.6 MG TABLET PO SCH ×2 (09:54→21:15)
[2019-07-04] MEDS: PHENYTOIN 100 MG/4 ML UDCUP PEG SCH ×3 (09:55→21:15)
[2019-07-04] MEDS: DESITIN 4OZ/NYSTATIN 15 GRAM MIXTURE PASTE TOP SCH ×2 (09:58→21:17)
[2019-07-04] MEDS: MUPIROCIN 2% OINT 22 GM TUBE TOP SCH ×2 (09:59→21:17)
[2019-07-04] MEDS: ENOXAPARIN 40 MG/0.4 ML SYRINGE SUBCUT SCH (21:16)
[2019-07-05] MEDS: ALBUTEROL/IPRATROPIUM 3 ML NEB RESP TX SCH ×5 (03:17→20:57)
[2019-07-05 05:42] LABS: Basophils % 0.4 % (0.0-0.8); Eosinophils # 0.4 10*3/uL (0.0-0.87); Hematocrit 34.5 VOL% (35.7-47.0); Hemoglobin 11.6 GM/DL (12.0-16.0); Immature Granulocytes % 1.3 %; Immature Granulocytes Absolute 0.11 #; Lymphocytes # 1.2 10*3/uL (1.4-4.0); Lymphocytes % 14.9 % (21.3-54.2); Mean Corpuscular HGB Conc 33.6 GM/DL (32-36); Mean Corpuscular Volume 92.5 FL (87-102); Mean Platelet Volume 11.4 FL (9.6-12.0); Monocytes % 6.4 % (1.7-12.7); Platelet Count 360 T/CUMM (130-400); Red Blood Count 3.73 MC/CUMM (3.8-5.5); Red Cell Distribution Width 13.2 % (9.3-17.3); White Blood Count 8.3 T/CUMM (4-12)
[2019-07-05 06:09] LABS: Calcium 9.7 MG/DL (8.5-10.1); Osmolality,Calculated 272.2 MOS/KG (273-304)
[2019-07-05] MEDS: BUDESONIDE 0.5 MG/2 ML NEB RESP TX SCH ×2 (07:28→20:57)
[2019-07-05] MEDS: INSULIN REGULAR 100 UNIT/ML SUBCUT SCH (10:03)
[2019-07-05] MEDS: METOPROLOL TARTRATE 25 MG TABLET PO SCH ×2 (10:05→21:12)
[2019-07-05] MEDS: LANSOPRAZOLE 3 MG/ML 90 ML/BOTTLE PEG SCH (10:14)
[2019-07-05] MEDS: ASPIRIN CHEW 81 MG TABLET PO SCH (10:14)
[2019-07-05] MEDS: PHENYTOIN 100 MG/4 ML UDCUP PEG SCH ×3 (10:14→21:13)
[2019-07-05] MEDS: DOCUSATE/SENNA 50-8.6 MG TABLET PO SCH ×2 (10:15→21:13)
[2019-07-05] MEDS: DESITIN 4OZ/NYSTATIN 15 GRAM MIXTURE PASTE TOP SCH ×2 (10:19→21:12)
[2019-07-05] MEDS: MUPIROCIN 2% OINT 22 GM TUBE TOP SCH ×2 (10:19→21:12)
[2019-07-05] MEDS: ENOXAPARIN 40 MG/0.4 ML SYRINGE SUBCUT SCH (21:12)
[2019-07-06] MEDS: ALBUTEROL/IPRATROPIUM 3 ML NEB RESP TX SCH ×3 (00:07→07:03)
[2019-07-06] MEDS: LANSOPRAZOLE 3 MG/ML 90 ML/BOTTLE PEG SCH (06:45)
[2019-07-06] MEDS: INSULIN REGULAR 100 UNIT/ML SUBCUT SCH (06:48)
[2019-07-06] MEDS: BUDESONIDE 0.5 MG/2 ML NEB RESP TX SCH ×2 (07:03→19:25)
[2019-07-06] MEDS: PHENYTOIN 100 MG/4 ML UDCUP PEG SCH ×3 (08:45→21:36)
[2019-07-06] MEDS: ASPIRIN CHEW 81 MG TABLET PO SCH (08:45)
[2019-07-06] MEDS: DOCUSATE/SENNA 50-8.6 MG TABLET PO SCH ×2 (08:45→21:36)
[2019-07-06] MEDS: MUPIROCIN 2% OINT 22 GM TUBE TOP SCH (08:46)
[2019-07-06] MEDS: METOPROLOL TARTRATE 25 MG TABLET PO SCH ×2 (08:46→21:36)
[2019-07-06] MEDS: ZINC OXIDE PASTE 113 GM TUBE TOP SCH ×2 (10:33→21:36)
[2019-07-06] MEDS: OMEPRAZOLE ODT 20 MG TABLET PEG SCH (11:28)
[2019-07-06] MEDS: ALBUTEROL/IPRATROPIUM 3 ML NEB RESP TX PRN ×2 (11:56→14:22)
[2019-07-06] MEDS: ENOXAPARIN 40 MG/0.4 ML SYRINGE SUBCUT SCH (21:36)
[2019-07-07 06:36] LABS: Basophils # 0.1 10*3/uL (0.0-0.2); Basophils % 0.6 % (0.0-0.8); Eosinophils # 0.4 10*3/uL (0.0-0.87); Eosinophils % 4.3 % (0.00-10.9); Hemoglobin 11.8 GM/DL (12.0-16.0); Immature Granulocytes % 1.2 %; Immature Granulocytes Absolute 0.11 #; Lymphocytes # 1.5 10*3/uL (1.4-4.0); Lymphocytes % 17.3 % (21.3-54.2); Mean Corpuscular HGB Conc 32.8 GM/DL (32-36); Mean Corpuscular Volume 93.5 FL (87-102); Monocytes % 7.5 % (1.7-12.7); Neutrophils % 69.1 % (38.7-73.9); Platelet Count 367 T/CUMM (130-400); Red Blood Count 3.85 MC/CUMM (3.8-5.5); Red Cell Distribution Width 13.5 % (9.3-17.3); White Blood Count 8.9 T/CUMM (4-12)
[2019-07-07 07:08] LABS: Osmolality,Calculated 271.2 MOS/KG (273-304)
[2019-07-07] MEDS: BUDESONIDE 0.5 MG/2 ML NEB RESP TX SCH ×2 (07:11→20:20)
[2019-07-07] MEDS: PHENYTOIN 100 MG/4 ML UDCUP PEG SCH ×3 (09:51→22:46)
[2019-07-07] MEDS: ZINC OXIDE PASTE 113 GM TUBE TOP SCH ×2 (09:51→22:46)
[2019-07-07] MEDS: ASPIRIN CHEW 81 MG TABLET PO SCH (09:51)
[2019-07-07] MEDS: OMEPRAZOLE ODT 20 MG TABLET PEG SCH (09:52)
[2019-07-07] MEDS: METOPROLOL TARTRATE 25 MG TABLET PO SCH ×2 (09:52→22:43)
[2019-07-07] MEDS: DOCUSATE/SENNA 50-8.6 MG TABLET PO SCH ×2 (09:52→22:44)
[2019-07-07] MEDS: ENOXAPARIN 40 MG/0.4 ML SYRINGE SUBCUT SCH (22:43)
[2019-07-08] MEDS: BUDESONIDE 0.5 MG/2 ML NEB RESP TX SCH ×2 (07:40→19:48)
[2019-07-08] MEDS: OMEPRAZOLE ODT 20 MG TABLET PEG SCH (08:51)
[2019-07-08] MEDS: DOCUSATE/SENNA 50-8.6 MG TABLET PO SCH ×2 (08:51→21:30)
[2019-07-08] MEDS: METOPROLOL TARTRATE 25 MG TABLET PO SCH ×2 (08:51→21:28)
[2019-07-08] MEDS: ASPIRIN CHEW 81 MG TABLET PO SCH (08:51)
[2019-07-08] MEDS: PHENYTOIN 100 MG/4 ML UDCUP PEG SCH ×3 (08:51→21:28)
[2019-07-08] MEDS: ZINC OXIDE PASTE 113 GM TUBE TOP SCH ×2 (08:54→21:31)
[2019-07-08] MEDS: ENOXAPARIN 40 MG/0.4 ML SYRINGE SUBCUT SCH (21:30)
[2019-07-09 05:49] LABS: Calcium 8.8 MG/DL (8.5-10.1); Osmolality,Calculated 271.2 MOS/KG (273-304)
[2019-07-09 06:32] LABS: Basophils # 0.1 10*3/uL (0.0-0.2); Basophils % 0.7 % (0.0-0.8); Eosinophils # 0.3 10*3/uL (0.0-0.87); Eosinophils % 3.9 % (0.00-10.9); Hematocrit 35.6 VOL% (35.7-47.0); Hemoglobin 11.7 GM/DL (12.0-16.0); Immature Granulocytes % 1.2 %; Lymphocytes # 1.3 10*3/uL (1.4-4.0); Lymphocytes % 15.9 % (21.3-54.2); Mean Corpuscular HGB Conc 32.9 GM/DL (32-36); Mean Corpuscular Volume 92.7 FL (87-102); Mean Platelet Volume 10.7 FL (9.6-12.0); Monocytes % 7.6 % (1.7-12.7); Neutrophils % 70.7 % (38.7-73.9); Platelet Count 358 T/CUMM (130-400); Red Blood Count 3.84 MC/CUMM (3.8-5.5); Red Cell Distribution Width 13.5 % (9.3-17.3); White Blood Count 8.2 T/CUMM (4-12)
[2019-07-09] MEDS: BUDESONIDE 0.5 MG/2 ML NEB RESP TX SCH ×2 (07:27→20:43)
[2019-07-09] MEDS: METOPROLOL TARTRATE 25 MG TABLET PO SCH ×2 (10:26→20:54)
[2019-07-09] MEDS: DOCUSATE/SENNA 50-8.6 MG TABLET PO SCH ×2 (10:26→20:54)
[2019-07-09] MEDS: OMEPRAZOLE ODT 20 MG TABLET PEG SCH (10:26)
[2019-07-09] MEDS: ASPIRIN CHEW 81 MG TABLET PO SCH (10:26)
[2019-07-09] MEDS: PHENYTOIN 100 MG/4 ML UDCUP PEG SCH ×3 (10:26→22:29)
[2019-07-09] MEDS: ZINC OXIDE PASTE 113 GM TUBE TOP SCH ×2 (10:27→20:53)
[2019-07-09] MEDS: ENOXAPARIN 40 MG/0.4 ML SYRINGE SUBCUT SCH (20:53)
[2019-07-10] MEDS: BUDESONIDE 0.5 MG/2 ML NEB RESP TX SCH ×2 (08:14→19:33)
[2019-07-10] MEDS: OMEPRAZOLE ODT 20 MG TABLET PEG SCH (09:10)
[2019-07-10] MEDS: DOCUSATE/SENNA 50-8.6 MG TABLET PO SCH ×2 (09:10→21:45)
[2019-07-10] MEDS: PHENYTOIN 100 MG/4 ML UDCUP PEG SCH ×3 (09:10→21:46)
[2019-07-10] MEDS: METOPROLOL TARTRATE 25 MG TABLET PO SCH ×2 (09:11→21:46)
[2019-07-10] MEDS: ASPIRIN CHEW 81 MG TABLET PO SCH (09:11)
[2019-07-10] MEDS: ZINC OXIDE PASTE 113 GM TUBE TOP SCH ×2 (10:18→21:48)
[2019-07-10 10:39] LABS: Apearance,Urine Slightly Hazy (Clear); Bacteria,Urine Moderate /HPF (Few); Bilirubin,Urine Negative (Negative); Blood, Urine Negative (Negative); Glucose,Urine (UA) Negative (Negative); Ketones,Urine Negative (Negative); Mucus,Urine Occasional /LPF (Occasional); Nitrite,Urine Negative (Negative); Protein,Urine Negative; Squamous Epithelial Cell,Urine Occasional /HPF (0-10); Urine Color Amber (Yellow); Urine Specific Gravity 1.018 (1.001-1.035); Urine Urobilinogen < 2.0 EU/DL (0.2-1.0); WBC,Urine 21 /HPF (0-6)
[2019-07-10] MEDS: cefTRIAXone 1,000 MG in SYRINGE 1 EACH IV SCH (13:59)
[2019-07-10] MEDS: ENOXAPARIN 40 MG/0.4 ML SYRINGE SUBCUT SCH (21:45)
[2019-07-11 06:41] LABS: Basophils # 0.1 10*3/uL (0.0-0.2); Basophils % 0.6 % (0.0-0.8); Eosinophils # 0.2 10*3/uL (0.0-0.87); Eosinophils % 2.9 % (0.00-10.9); Hematocrit 36.7 VOL% (35.7-47.0); Hemoglobin 12.2 GM/DL (12.0-16.0); Immature Granulocytes % 1.1 %; Immature Granulocytes Absolute 0.09 #; Lymphocytes # 1.2 10*3/uL (1.4-4.0); Lymphocytes % 14.5 % (21.3-54.2); Mean Corpuscular HGB Conc 33.2 GM/DL (32-36); Mean Corpuscular Volume 91.8 FL (87-102); Mean Platelet Volume 12.3 FL (9.6-12.0); Monocytes % 6.3 % (1.7-12.7); Neutrophils % 74.6 % (38.7-73.9); Platelet Count 220 T/CUMM (130-400); Red Cell Distribution Width 13.3 % (9.3-17.3); White Blood Count 7.9 T/CUMM (4-12)
[2019-07-11 06:43] LABS: Calcium 9.3 MG/DL (8.5-10.1); Osmolality,Calculated 271.2 MOS/KG (273-304)
[2019-07-11] MEDS: BUDESONIDE 0.5 MG/2 ML NEB RESP TX SCH ×2 (08:01→19:54)
[2019-07-11] MEDS: cefTRIAXone 1,000 MG in SYRINGE 1 EACH IV SCH (11:32)
[2019-07-11] MEDS: OMEPRAZOLE ODT 20 MG TABLET PEG SCH (11:32)
[2019-07-11] MEDS: DOCUSATE/SENNA 50-8.6 MG TABLET PO SCH ×2 (11:32→21:31)
[2019-07-11] MEDS: PHENYTOIN 100 MG/4 ML UDCUP PEG SCH ×3 (11:33→21:31)
[2019-07-11] MEDS: METOPROLOL TARTRATE 25 MG TABLET PO SCH ×2 (11:33→21:32)
[2019-07-11] MEDS: ZINC OXIDE PASTE 113 GM TUBE TOP SCH ×2 (11:33→21:32)
[2019-07-11] MEDS: ASPIRIN CHEW 81 MG TABLET PO SCH (11:33)
[2019-07-11] MEDS ORDERED: PIPERACILLIN/TAZOBACTAM 3,375 MG in SODIUM CHLORIDE 0.9% 100 ML IV SCH (12:30)
[2019-07-11] MEDS: MEROPENEM 500 MG in SODIUM CHLORIDE 0.9% 100 ML IV SCH ×2 (14:07→21:31)
[2019-07-11] MEDS: ENOXAPARIN 40 MG/0.4 ML SYRINGE SUBCUT SCH (21:31)
[2019-07-12] MEDS: MEROPENEM 500 MG in SODIUM CHLORIDE 0.9% 100 ML IV SCH ×4 (03:26→22:27)
[2019-07-12 04:43] LABS: Basophils % 0.6 % (0.0-0.8); Eosinophils # 0.3 10*3/uL (0.0-0.87); Eosinophils % 4.5 % (0.00-10.9); Hematocrit 35.6 VOL% (35.7-47.0); Hemoglobin 11.8 GM/DL (12.0-16.0); Immature Granulocytes % 1.2 %; Immature Granulocytes Absolute 0.08 #; Lymphocytes # 1.2 10*3/uL (1.4-4.0); Lymphocytes % 17.5 % (21.3-54.2); Mean Corpuscular HGB Conc 33.1 GM/DL (32-36); Mean Corpuscular Volume 93.2 FL (87-102); Mean Platelet Volume 11.7 FL (9.6-12.0); Monocytes % 7.5 % (1.7-12.7); Neutrophils % 68.7 % (38.7-73.9); Platelet Count 244 T/CUMM (130-400); Red Blood Count 3.82 MC/CUMM (3.8-5.5); Red Cell Distribution Width 13.7 % (9.3-17.3); White Blood Count 6.8 T/CUMM (4-12)
[2019-07-12 05:15] LABS: Calcium 9.1 MG/DL (8.5-10.1); Osmolality,Calculated 275.8 MOS/KG (273-304)
[2019-07-12] MEDS: BUDESONIDE 0.5 MG/2 ML NEB RESP TX SCH ×2 (07:46→19:53)
[2019-07-12] MEDS: ZINC OXIDE PASTE 113 GM TUBE TOP SCH ×2 (09:59→22:36)
[2019-07-12] MEDS: METOPROLOL TARTRATE 25 MG TABLET PO SCH ×2 (10:00→22:35)
[2019-07-12] MEDS: ASPIRIN CHEW 81 MG TABLET PO SCH (10:01)
[2019-07-12] MEDS: DOCUSATE/SENNA 50-8.6 MG TABLET PO SCH ×2 (10:01→22:36)
[2019-07-12] MEDS: PHENYTOIN 100 MG/4 ML UDCUP PEG SCH ×3 (10:01→22:34)
[2019-07-12] MEDS: OMEPRAZOLE ODT 20 MG TABLET PEG SCH ×2 (10:09→22:36)
[2019-07-12] MEDS: ENOXAPARIN 40 MG/0.4 ML SYRINGE SUBCUT SCH (22:34)
[2019-07-13] MEDS: MEROPENEM 500 MG in SODIUM CHLORIDE 0.9% 100 ML IV SCH ×4 (03:43→20:19)
[2019-07-13 04:49] LABS: Basophils # 0.1 10*3/uL (0.0-0.2); Basophils % 0.7 % (0.0-0.8); Eosinophils # 0.2 10*3/uL (0.0-0.87); Eosinophils % 2.9 % (0.00-10.9); Hematocrit 34.6 VOL% (35.7-47.0); Hemoglobin 11.7 GM/DL (12.0-16.0); Immature Granulocytes % 1.2 %; Immature Granulocytes Absolute 0.09 #; Lymphocytes # 1.1 10*3/uL (1.4-4.0); Lymphocytes % 15.1 % (21.3-54.2); Mean Corpuscular HGB Conc 33.8 GM/DL (32-36); Mean Corpuscular Volume 90.6 FL (87-102); Mean Platelet Volume 10.9 FL (9.6-12.0); Monocytes % 7.5 % (1.7-12.7); Neutrophils % 72.6 % (38.7-73.9); Platelet Count 292 T/CUMM (130-400); Red Blood Count 3.82 MC/CUMM (3.8-5.5); Red Cell Distribution Width 13.3 % (9.3-17.3); White Blood Count 7.5 T/CUMM (4-12)
[2019-07-13 05:18] LABS: Osmolality,Calculated 273.1 MOS/KG (273-304)
[2019-07-13] MEDS: BUDESONIDE 0.5 MG/2 ML NEB RESP TX SCH ×2 (06:54→20:10)
[2019-07-13] MEDS: ASPIRIN CHEW 81 MG TABLET PO SCH (09:05)
[2019-07-13] MEDS: DOCUSATE/SENNA 50-8.6 MG TABLET PO SCH ×2 (09:05→20:21)
[2019-07-13] MEDS: PHENYTOIN 100 MG/4 ML UDCUP PEG SCH ×3 (09:05→20:21)
[2019-07-13] MEDS: METOPROLOL TARTRATE 25 MG TABLET PO SCH ×2 (09:05→20:21)
[2019-07-13] MEDS: ZINC OXIDE PASTE 113 GM TUBE TOP SCH ×2 (09:05→20:22)
[2019-07-13] MEDS: OMEPRAZOLE ODT 20 MG TABLET PEG SCH (09:06)
[2019-07-13] MEDS ORDERED: TUBERCULIN SKIN TEST 0.1 ML SYRINGE INTRADERM ONE (11:33)
[2019-07-13] MEDS: ENOXAPARIN 40 MG/0.4 ML SYRINGE SUBCUT SCH (20:20)
[2019-07-14] MEDS: MEROPENEM 500 MG in SODIUM CHLORIDE 0.9% 100 ML IV SCH ×4 (03:10→20:55)
[2019-07-14] MEDS: BUDESONIDE 0.5 MG/2 ML NEB RESP TX SCH ×2 (07:03→19:21)
[2019-07-14] MEDS: METOPROLOL TARTRATE 25 MG TABLET PO SCH ×2 (08:53→20:54)
[2019-07-14] MEDS: OMEPRAZOLE ODT 20 MG TABLET PEG SCH (08:53)
[2019-07-14] MEDS: ASPIRIN CHEW 81 MG TABLET PO SCH (08:53)
[2019-07-14] MEDS: PHENYTOIN 100 MG/4 ML UDCUP PEG SCH ×3 (08:53→20:54)
[2019-07-14] MEDS: DOCUSATE/SENNA 50-8.6 MG TABLET PO SCH ×2 (08:54→20:54)
[2019-07-14] MEDS: ZINC OXIDE PASTE 113 GM TUBE TOP SCH ×2 (08:54→20:54)
[2019-07-14] MEDS: ENOXAPARIN 40 MG/0.4 ML SYRINGE SUBCUT SCH (20:54)
[2019-07-15] MEDS: MEROPENEM 500 MG in SODIUM CHLORIDE 0.9% 100 ML IV SCH ×5 (03:28→21:28)
[2019-07-15] MEDS: BUDESONIDE 0.5 MG/2 ML NEB RESP TX SCH ×2 (07:45→19:39)
[2019-07-15] MEDS: ZINC OXIDE PASTE 113 GM TUBE TOP SCH ×2 (08:38→21:29)
[2019-07-15] MEDS: OMEPRAZOLE ODT 20 MG TABLET PEG SCH (08:38)
[2019-07-15] MEDS: PHENYTOIN 100 MG/4 ML UDCUP PEG SCH ×3 (08:38→21:28)
[2019-07-15] MEDS: DOCUSATE/SENNA 50-8.6 MG TABLET PO SCH ×2 (08:38→21:28)
[2019-07-15] MEDS: ASPIRIN CHEW 81 MG TABLET PO SCH (08:38)
[2019-07-15] MEDS: METOPROLOL TARTRATE 25 MG TABLET PO SCH ×2 (08:38→21:28)
[2019-07-15] MEDS: ENOXAPARIN 40 MG/0.4 ML SYRINGE SUBCUT SCH (21:29)
[2019-07-16] MEDS: MEROPENEM 500 MG in SODIUM CHLORIDE 0.9% 100 ML IV SCH ×2 (03:00→09:04)
[2019-07-16] MEDS: BUDESONIDE 0.5 MG/2 ML NEB RESP TX SCH ×2 (07:50→19:43)
[2019-07-16] MEDS: METOPROLOL TARTRATE 25 MG TABLET PO SCH ×2 (09:03→21:36)
[2019-07-16] MEDS: ASPIRIN CHEW 81 MG TABLET PO SCH (09:03)
[2019-07-16] MEDS: OMEPRAZOLE ODT 20 MG TABLET PEG SCH (09:03)
[2019-07-16] MEDS: ZINC OXIDE PASTE 113 GM TUBE TOP SCH ×2 (09:03→21:35)
[2019-07-16] MEDS: PHENYTOIN 100 MG/4 ML UDCUP PEG SCH ×3 (09:03→21:36)
[2019-07-16] MEDS: DOCUSATE/SENNA 50-8.6 MG TABLET PO SCH ×2 (09:03→21:36)
[2019-07-16] MEDS ORDERED: LORazepam 2 MG/1 ML VIAL IV ONE (09:44)
[2019-07-16] MEDS: ENOXAPARIN 40 MG/0.4 ML SYRINGE SUBCUT SCH (21:35)
[2019-07-17] MEDS: BUDESONIDE 0.5 MG/2 ML NEB RESP TX SCH ×2 (07:42→20:02)
[2019-07-17] MEDS: PHENYTOIN 100 MG/4 ML UDCUP PEG SCH ×3 (09:36→21:45)
[2019-07-17] MEDS: METOPROLOL TARTRATE 25 MG TABLET PO SCH ×2 (09:36→22:11)
[2019-07-17] MEDS: DOCUSATE/SENNA 50-8.6 MG TABLET PO SCH ×2 (09:36→22:11)
[2019-07-17] MEDS: ASPIRIN CHEW 81 MG TABLET PO SCH (09:36)
[2019-07-17] MEDS: OMEPRAZOLE ODT 20 MG TABLET PEG SCH (09:37)
[2019-07-17] MEDS: ZINC OXIDE PASTE 113 GM TUBE TOP SCH ×2 (09:37→21:45)
[2019-07-17] MEDS: ENOXAPARIN 40 MG/0.4 ML SYRINGE SUBCUT SCH (21:45)
[2019-07-18] MEDS: BUDESONIDE 0.5 MG/2 ML NEB RESP TX SCH ×2 (07:37→20:55)
[2019-07-18] MEDS: METOPROLOL TARTRATE 25 MG TABLET PO SCH ×2 (08:52→21:26)
[2019-07-18] MEDS: OMEPRAZOLE ODT 20 MG TABLET PEG SCH (08:52)
[2019-07-18] MEDS: DOCUSATE/SENNA 50-8.6 MG TABLET PO SCH ×2 (08:52→21:26)
[2019-07-18] MEDS: ZINC OXIDE PASTE 113 GM TUBE TOP SCH ×2 (08:53→21:26)
[2019-07-18] MEDS: PHENYTOIN 100 MG/4 ML UDCUP PEG SCH ×3 (08:53→21:26)
[2019-07-18] MEDS: ASPIRIN CHEW 81 MG TABLET PO SCH (08:53)
[2019-07-18] MEDS: ENOXAPARIN 40 MG/0.4 ML SYRINGE SUBCUT SCH (21:39)
[2019-07-19 06:33] LABS: Calcium 9.3 MG/DL (8.5-10.1); Osmolality,Calculated 272.1 MOS/KG (273-304)
[2019-07-19] MEDS: BUDESONIDE 0.5 MG/2 ML NEB RESP TX SCH ×2 (07:20→19:26)
[2019-07-19 08:02] LABS: Basophils # 0.1 10*3/uL (0.0-0.2); Basophils % 0.6 % (0.0-0.8); Eosinophils # 0.3 10*3/uL (0.0-0.87); Hematocrit 37.7 VOL% (35.7-47.0); Hemoglobin 12.5 GM/DL (12.0-16.0); Immature Granulocytes % 0.8 %; Immature Granulocytes Absolute 0.06 #; Lymphocytes # 1.4 10*3/uL (1.4-4.0); Mean Corpuscular HGB Conc 33.2 GM/DL (32-36); Mean Corpuscular Volume 91.3 FL (87-102); Mean Platelet Volume 12.5 FL (9.6-12.0); Monocytes % 9.8 % (1.7-12.7); Neutrophils % 66.8 % (38.7-73.9); Platelet Count 172 T/CUMM (130-400); Red Blood Count 4.13 MC/CUMM (3.8-5.5); Red Cell Distribution Width 13.1 % (9.3-17.3); White Blood Count 7.8 T/CUMM (4-12)
[2019-07-19] MEDS: PHENYTOIN 100 MG/4 ML UDCUP PEG SCH ×3 (09:33→21:30)
[2019-07-19] MEDS: OMEPRAZOLE ODT 20 MG TABLET PEG SCH (09:33)
[2019-07-19] MEDS: METOPROLOL TARTRATE 25 MG TABLET PO SCH ×2 (09:34→21:30)
[2019-07-19] MEDS: ASPIRIN CHEW 81 MG TABLET PO SCH (09:34)
[2019-07-19] MEDS: ZINC OXIDE PASTE 113 GM TUBE TOP SCH ×2 (09:35→21:30)
[2019-07-19] MEDS: ENOXAPARIN 40 MG/0.4 ML SYRINGE SUBCUT SCH (21:30)
[2019-07-20] MEDS: BUDESONIDE 0.5 MG/2 ML NEB RESP TX SCH ×2 (07:12→19:38)
[2019-07-20] MEDS: PHENYTOIN 100 MG/4 ML UDCUP PEG SCH ×3 (09:35→21:24)
[2019-07-20] MEDS: ASPIRIN CHEW 81 MG TABLET PO SCH (09:35)
[2019-07-20] MEDS: METOPROLOL TARTRATE 25 MG TABLET PO SCH ×2 (09:36→21:24)
[2019-07-20] MEDS: ZINC OXIDE PASTE 113 GM TUBE TOP SCH ×2 (09:36→21:24)
[2019-07-20] MEDS: OMEPRAZOLE ODT 20 MG TABLET PEG SCH (09:36)
[2019-07-20] MEDS: ENOXAPARIN 40 MG/0.4 ML SYRINGE SUBCUT SCH (21:24)
[2019-07-21] MEDS: BUDESONIDE 0.5 MG/2 ML NEB RESP TX SCH ×2 (07:13→19:57)
[2019-07-21] MEDS: ZINC OXIDE PASTE 113 GM TUBE TOP SCH ×2 (09:16→21:34)
[2019-07-21] MEDS: OMEPRAZOLE ODT 20 MG TABLET PEG SCH (09:18)
[2019-07-21] MEDS: ASPIRIN CHEW 81 MG TABLET PO SCH (09:18)
[2019-07-21] MEDS: METOPROLOL TARTRATE 25 MG TABLET PO SCH ×2 (09:18→21:34)
[2019-07-21] MEDS: PHENYTOIN 100 MG/4 ML UDCUP PEG SCH ×3 (09:18→21:34)
[2019-07-21] MEDS: ENOXAPARIN 40 MG/0.4 ML SYRINGE SUBCUT SCH (21:34)
[2019-07-22] MEDS: BUDESONIDE 0.5 MG/2 ML NEB RESP TX SCH ×2 (07:37→19:29)
[2019-07-22] MEDS: ASPIRIN CHEW 81 MG TABLET PO SCH (09:12)
[2019-07-22] MEDS: METOPROLOL TARTRATE 25 MG TABLET PO SCH ×2 (09:12→21:15)
[2019-07-22] MEDS: PHENYTOIN 100 MG/4 ML UDCUP PEG SCH ×3 (09:12→21:16)
[2019-07-22] MEDS: OMEPRAZOLE ODT 20 MG TABLET PEG SCH (09:12)
[2019-07-22] MEDS: ZINC OXIDE PASTE 113 GM TUBE TOP SCH ×2 (09:12→21:16)
[2019-07-22] MEDS: ENOXAPARIN 40 MG/0.4 ML SYRINGE SUBCUT SCH (21:15)
[2019-07-23] MEDS: BUDESONIDE 0.5 MG/2 ML NEB RESP TX SCH ×2 (07:30→17:56)
[2019-07-23] MEDS: ZINC OXIDE PASTE 113 GM TUBE TOP SCH ×2 (09:33→21:14)
[2019-07-23] MEDS: PHENYTOIN 100 MG/4 ML UDCUP PEG SCH ×3 (09:33→21:14)
[2019-07-23] MEDS: METOPROLOL TARTRATE 25 MG TABLET PO SCH ×2 (09:33→21:14)
[2019-07-23] MEDS: OMEPRAZOLE ODT 20 MG TABLET PEG SCH (09:33)
[2019-07-23] MEDS: ASPIRIN CHEW 81 MG TABLET PO SCH (09:33)
[2019-07-23] MEDS: ENOXAPARIN 40 MG/0.4 ML SYRINGE SUBCUT SCH (21:14)
[2019-07-24] MEDS: ACETAMINOPHEN 325 MG TABLET PO PRN (00:50)
[2019-07-24] MEDS: BUDESONIDE 0.5 MG/2 ML NEB RESP TX SCH ×2 (06:55→19:46)
[2019-07-24] MEDS: METOPROLOL TARTRATE 25 MG TABLET PO SCH ×2 (09:36→21:03)
[2019-07-24] MEDS: ASPIRIN CHEW 81 MG TABLET PO SCH (09:36)
[2019-07-24] MEDS: OMEPRAZOLE ODT 20 MG TABLET PEG SCH (09:36)
[2019-07-24] MEDS: ZINC OXIDE PASTE 113 GM TUBE TOP SCH ×2 (09:37→21:03)
[2019-07-24] MEDS: PHENYTOIN 100 MG/4 ML UDCUP PEG SCH ×3 (09:37→21:02)
[2019-07-24] MEDS: ENOXAPARIN 40 MG/0.4 ML SYRINGE SUBCUT SCH (21:02)
[2019-07-25] MEDS: ACETAMINOPHEN 325 MG TABLET PO PRN (00:35)
[2019-07-25 05:22] LABS: Basophils # 0.1 10*3/uL (0.0-0.2); Eosinophils # 0.3 10*3/uL (0.0-0.87); Eosinophils % 4.4 % (0.00-10.9); Hematocrit 38.7 VOL% (35.7-47.0); Immature Granulocytes % 0.7 %; Immature Granulocytes Absolute 0.05 #; Lymphocytes # 1.4 10*3/uL (1.4-4.0); Lymphocytes % 19.1 % (21.3-54.2); Mean Corpuscular HGB Conc 33.6 GM/DL (32-36); Mean Corpuscular Volume 92.1 FL (87-102); Mean Platelet Volume 11.5 FL (9.6-12.0); Monocytes % 9.4 % (1.7-12.7); Neutrophils % 65.4 % (38.7-73.9); Platelet Count 317 T/CUMM (130-400); White Blood Count 7.3 T/CUMM (4-12)
[2019-07-25 05:43] LABS: Calcium 9.6 MG/DL (8.5-10.1); Osmolality,Calculated 272.1 MOS/KG (273-304)
[2019-07-25] MEDS: BUDESONIDE 0.5 MG/2 ML NEB RESP TX SCH ×2 (08:17→19:54)
[2019-07-25] MEDS: ASPIRIN CHEW 81 MG TABLET PO SCH (08:31)
[2019-07-25] MEDS: PHENYTOIN 100 MG/4 ML UDCUP PEG SCH ×3 (08:31→21:27)
[2019-07-25] MEDS: OMEPRAZOLE ODT 20 MG TABLET PEG SCH (08:31)
[2019-07-25] MEDS: METOPROLOL TARTRATE 25 MG TABLET PO SCH ×2 (08:32→21:27)
[2019-07-25] MEDS: ZINC OXIDE PASTE 113 GM TUBE TOP SCH ×2 (08:45→21:27)
[2019-07-25 14:56] LABS: Apearance,Urine CLOUDY (Clear); Bacteria,Urine Many /HPF (Few); Bilirubin,Urine Negative (Negative); Blood, Urine Negative (Negative); Glucose,Urine (UA) Negative (Negative); Ketones,Urine Negative (Negative); Mucus,Urine Occasional /LPF (Occasional); Nitrite,Urine Negative (Negative); Protein,Urine Negative; RBC,Urine 6 /HPF (0-4); Squamous Epithelial Cell,Urine Occasional /HPF (0-10); Urine Color Yellow (Yellow); Urine Specific Gravity 1.013 (1.001-1.035); Urine Urobilinogen < 2.0 EU/DL (0.2-1.0); WBC,Urine 12 /HPF (0-6)
[2019-07-25] MEDS: ALBUTEROL/IPRATROPIUM 3 ML NEB RESP TX PRN (19:54)
[2019-07-25] MEDS: ENOXAPARIN 40 MG/0.4 ML SYRINGE SUBCUT SCH (21:27)
[2019-07-26] MEDS: BUDESONIDE 0.5 MG/2 ML NEB RESP TX SCH ×2 (07:04→19:17)
[2019-07-26] MEDS: ASPIRIN CHEW 81 MG TABLET PO SCH (11:04)
[2019-07-26] MEDS: METOPROLOL TARTRATE 25 MG TABLET PO SCH ×2 (11:04→21:13)
[2019-07-26] MEDS: PHENYTOIN 100 MG/4 ML UDCUP PEG SCH (11:04)
[2019-07-26] MEDS: ZINC OXIDE PASTE 113 GM TUBE TOP SCH ×2 (11:04→21:15)
[2019-07-26] MEDS: OMEPRAZOLE ODT 20 MG TABLET PEG SCH (11:05)
[2019-07-26] MEDS ORDERED: ERTAPENEM 1,000 MG in SODIUM CHLORIDE 0.9% 100 ML IV SCH (13:30)
[2019-07-26] MEDS: PHENYTOIN 100 MG/2 ML VIAL IV SCH ×2 (14:14→21:14)
[2019-07-26] MEDS: DEXT 5% NACL 0.45% KCL 20 MEQ 20 MEQ/1,000 ML BAG IV SCH (14:21)
[2019-07-27] MEDS ORDERED: hydrALAZINE 20 MG/1 ML VIAL IV PRN (00:26)
[2019-07-27] MEDS: DEXT 5% NACL 0.45% KCL 20 MEQ 20 MEQ/1,000 ML BAG IV SCH ×2 (03:20→15:54)
[2019-07-27 05:53] LABS: Basophils # 0.1 10*3/uL (0.0-0.2); Basophils % 0.7 % (0.0-0.8); Eosinophils # 0.3 10*3/uL (0.0-0.87); Eosinophils % 3.3 % (0.00-10.9); Hematocrit 36.8 VOL% (35.7-47.0); Hemoglobin 12.2 GM/DL (12.0-16.0); Immature Granulocytes % 1.1 %; Immature Granulocytes Absolute 0.09 #; Lymphocytes # 1.2 10*3/uL (1.4-4.0); Lymphocytes % 14.1 % (21.3-54.2); Mean Corpuscular HGB Conc 33.2 GM/DL (32-36); Mean Corpuscular Volume 91.5 FL (87-102); Mean Platelet Volume 11.7 FL (9.6-12.0); Monocytes % 8.8 % (1.7-12.7); Platelet Count 295 T/CUMM (130-400); Red Blood Count 4.02 MC/CUMM (3.8-5.5); Red Cell Distribution Width 12.8 % (9.3-17.3); White Blood Count 8.4 T/CUMM (4-12)
[2019-07-27 06:06] LABS: Calcium 9.6 MG/DL (8.5-10.1)
[2019-07-27] MEDS: BUDESONIDE 0.5 MG/2 ML NEB RESP TX SCH ×2 (07:40→20:07)
[2019-07-27] MEDS: ASPIRIN CHEW 81 MG TABLET PO SCH ×2 (08:15→09:35)
[2019-07-27] MEDS: METOPROLOL TARTRATE 25 MG TABLET PO SCH ×3 (08:16→20:58)
[2019-07-27] MEDS: OMEPRAZOLE ODT 20 MG TABLET PEG SCH ×2 (08:16→09:35)
[2019-07-27] MEDS: ZINC OXIDE PASTE 113 GM TUBE TOP SCH ×2 (08:16→20:58)
[2019-07-27] MEDS ORDERED: METOPROLOL TARTRATE 5 MG/5 ML VIAL IV PRN (08:23)
[2019-07-27] MEDS: PHENYTOIN 100 MG/4 ML UDCUP PO SCH ×3 (09:35→20:58)
[2019-07-27] MEDS ORDERED: FOSFOMYCIN 3 GM PACK PO ONE (12:00)
[2019-07-28] MEDS: BUDESONIDE 0.5 MG/2 ML NEB RESP TX SCH ×2 (08:12→21:55)
[2019-07-28] MEDS: OMEPRAZOLE ODT 20 MG TABLET PEG SCH (09:58)
[2019-07-28] MEDS: ASPIRIN CHEW 81 MG TABLET PO SCH (09:58)
[2019-07-28] MEDS: METOPROLOL TARTRATE 25 MG TABLET PO SCH ×2 (09:58→21:25)
[2019-07-28] MEDS: PHENYTOIN 100 MG/4 ML UDCUP PO SCH ×3 (09:58→21:25)
[2019-07-28] MEDS: ZINC OXIDE PASTE 113 GM TUBE TOP SCH ×2 (09:59→21:24)
[2019-07-29] MEDS: BUDESONIDE 0.5 MG/2 ML NEB RESP TX SCH ×2 (07:50→20:17)
[2019-07-29] MEDS: ASPIRIN CHEW 81 MG TABLET PO SCH (09:01)
[2019-07-29] MEDS: PHENYTOIN 100 MG/4 ML UDCUP PO SCH ×3 (09:01→21:59)
[2019-07-29] MEDS: ZINC OXIDE PASTE 113 GM TUBE TOP SCH ×2 (09:01→21:59)
[2019-07-29] MEDS: METOPROLOL TARTRATE 25 MG TABLET PO SCH ×2 (09:02→21:59)
[2019-07-29] MEDS: OMEPRAZOLE ODT 20 MG TABLET PEG SCH (09:02)
[2019-07-30] MEDS: BUDESONIDE 0.5 MG/2 ML NEB RESP TX SCH ×2 (08:19→18:50)
[2019-07-30] MEDS: ASPIRIN CHEW 81 MG TABLET PO SCH (09:12)
[2019-07-30] MEDS: METOPROLOL TARTRATE 25 MG TABLET PO SCH ×2 (09:13→20:52)
[2019-07-30] MEDS: PHENYTOIN 100 MG/4 ML UDCUP PO SCH ×3 (09:13→20:52)
[2019-07-30] MEDS: OMEPRAZOLE ODT 20 MG TABLET PEG SCH (09:13)
[2019-07-30] MEDS: ZINC OXIDE PASTE 113 GM TUBE TOP SCH ×2 (09:13→20:52)
[2019-07-31] MEDS: BUDESONIDE 0.5 MG/2 ML NEB RESP TX SCH ×2 (07:30→20:09)
[2019-07-31] MEDS: OMEPRAZOLE ODT 20 MG TABLET PEG SCH (09:02)
[2019-07-31] MEDS: METOPROLOL TARTRATE 25 MG TABLET PO SCH ×2 (09:02→20:14)
[2019-07-31] MEDS: ASPIRIN CHEW 81 MG TABLET PO SCH (09:02)
[2019-07-31] MEDS: ZINC OXIDE PASTE 113 GM TUBE TOP SCH ×2 (09:03→20:14)
[2019-07-31] MEDS: PHENYTOIN 100 MG/4 ML UDCUP PO SCH ×3 (09:03→20:14)
[2019-08-01 05:13] LABS: Basophils # 0.1 10*3/uL (0.0-0.2); Basophils % 0.9 % (0.0-0.8); Eosinophils # 0.4 10*3/uL (0.0-0.87); Eosinophils % 5.2 % (0.00-10.9); Hematocrit 37.8 VOL% (35.7-47.0); Hemoglobin 12.4 GM/DL (12.0-16.0); Immature Granulocytes % 0.7 %; Immature Granulocytes Absolute 0.06 #; Lymphocytes # 1.1 10*3/uL (1.4-4.0); Lymphocytes % 13.3 % (21.3-54.2); Mean Corpuscular HGB Conc 32.8 GM/DL (32-36); Mean Corpuscular Volume 93.6 FL (87-102); Mean Platelet Volume 11.9 FL (9.6-12.0); Monocytes % 8.5 % (1.7-12.7); Neutrophils % 71.4 % (38.7-73.9); Platelet Count 323 T/CUMM (130-400); Red Blood Count 4.04 MC/CUMM (3.8-5.5); Red Cell Distribution Width 13.1 % (9.3-17.3); White Blood Count 8.1 T/CUMM (4-12)
[2019-08-01 05:40] LABS: Osmolality,Calculated 274.1 MOS/KG (273-304)
[2019-08-01] MEDS: BUDESONIDE 0.5 MG/2 ML NEB RESP TX SCH ×2 (07:54→18:40)
[2019-08-01] MEDS: ZINC OXIDE PASTE 113 GM TUBE TOP SCH ×2 (09:55→22:48)
[2019-08-01] MEDS: OMEPRAZOLE ODT 20 MG TABLET PEG SCH (09:56)
[2019-08-01] MEDS: ASPIRIN CHEW 81 MG TABLET PO SCH (09:56)
[2019-08-01] MEDS: PHENYTOIN 100 MG/4 ML UDCUP PO SCH ×3 (09:56→22:47)
[2019-08-01] MEDS: METOPROLOL TARTRATE 25 MG TABLET PO SCH ×2 (09:56→22:47)
[2019-08-02] MEDS: BUDESONIDE 0.5 MG/2 ML NEB RESP TX SCH ×2 (07:07→18:50)
[2019-08-02] MEDS: OMEPRAZOLE ODT 20 MG TABLET PEG SCH (10:12)
[2019-08-02] MEDS: PHENYTOIN 100 MG/4 ML UDCUP PO SCH ×3 (10:12→22:04)
[2019-08-02] MEDS: METOPROLOL TARTRATE 25 MG TABLET PO SCH ×2 (10:12→22:04)
[2019-08-02] MEDS: ZINC OXIDE PASTE 113 GM TUBE TOP SCH ×2 (10:13→22:04)
[2019-08-02] MEDS: ASPIRIN CHEW 81 MG TABLET PO SCH (10:13)
[2019-08-03] MEDS: BUDESONIDE 0.5 MG/2 ML NEB RESP TX SCH ×2 (07:40→20:08)
[2019-08-03] MEDS: ASPIRIN CHEW 81 MG TABLET PO SCH (09:31)
[2019-08-03] MEDS: METOPROLOL TARTRATE 25 MG TABLET PO SCH ×2 (09:31→20:05)
[2019-08-03] MEDS: PHENYTOIN 100 MG/4 ML UDCUP PO SCH ×3 (09:31→20:05)
[2019-08-03] MEDS: OMEPRAZOLE ODT 20 MG TABLET PEG SCH (09:31)
[2019-08-03] MEDS: ZINC OXIDE PASTE 113 GM TUBE TOP SCH ×2 (09:32→20:05)
[2019-08-04 05:44] LABS: Basophils # 0.1 10*3/uL (0.0-0.2); Basophils % 0.7 % (0.0-0.8); Eosinophils # 0.3 10*3/uL (0.0-0.87); Eosinophils % 3.2 % (0.00-10.9); Hematocrit 38.6 VOL% (35.7-47.0); Hemoglobin 12.6 GM/DL (12.0-16.0); Immature Granulocytes % 0.8 %; Immature Granulocytes Absolute 0.07 #; Lymphocytes % 11.4 % (21.3-54.2); Mean Corpuscular HGB Conc 32.6 GM/DL (32-36); Mean Corpuscular Volume 92.1 FL (87-102); Mean Platelet Volume 11.8 FL (9.6-12.0); Monocytes % 7.3 % (1.7-12.7); Neutrophils % 76.6 % (38.7-73.9); Platelet Count 294 T/CUMM (130-400); Red Blood Count 4.19 MC/CUMM (3.8-5.5); Red Cell Distribution Width 12.8 % (9.3-17.3); White Blood Count 9.2 T/CUMM (4-12)
[2019-08-04 06:20] LABS: Calcium 9.6 MG/DL (8.5-10.1)
[2019-08-04] MEDS: BUDESONIDE 0.5 MG/2 ML NEB RESP TX SCH ×2 (07:39→19:01)
[2019-08-04] MEDS: METOPROLOL TARTRATE 25 MG TABLET PO SCH ×2 (08:22→20:25)
[2019-08-04] MEDS: PHENYTOIN 100 MG/4 ML UDCUP PO SCH ×3 (08:26→20:25)
[2019-08-04] MEDS: ASPIRIN CHEW 81 MG TABLET PO SCH (08:26)
[2019-08-04] MEDS: OMEPRAZOLE ODT 20 MG TABLET PEG SCH (08:26)
[2019-08-04] MEDS: ZINC OXIDE PASTE 113 GM TUBE TOP SCH ×2 (08:26→20:25)
[2019-08-04] MEDS: SCOPOLAMINE 1.5 MG PATCH TRANSDERM SCH (17:45)
[2019-08-05] MEDS: BUDESONIDE 0.5 MG/2 ML NEB RESP TX SCH ×2 (07:22→20:19)
[2019-08-05] MEDS: PHENYTOIN 100 MG/4 ML UDCUP PO SCH ×3 (08:45→20:19)
[2019-08-05] MEDS: OMEPRAZOLE ODT 20 MG TABLET PEG SCH (08:45)
[2019-08-05] MEDS: ASPIRIN CHEW 81 MG TABLET PO SCH (08:45)
[2019-08-05] MEDS: METOPROLOL TARTRATE 25 MG TABLET PO SCH ×2 (08:45→20:19)
[2019-08-05] MEDS: ZINC OXIDE PASTE 113 GM TUBE TOP SCH ×2 (08:50→20:19)
[2019-08-06] MEDS: BUDESONIDE 0.5 MG/2 ML NEB RESP TX SCH ×2 (07:08→19:14)
[2019-08-06] MEDS: PHENYTOIN 100 MG/4 ML UDCUP PO SCH ×3 (08:45→21:25)
[2019-08-06] MEDS: OMEPRAZOLE ODT 20 MG TABLET PEG SCH (08:45)
[2019-08-06] MEDS: METOPROLOL TARTRATE 25 MG TABLET PO SCH ×2 (08:46→21:25)
[2019-08-06] MEDS: ASPIRIN CHEW 81 MG TABLET PO SCH (08:46)
[2019-08-06] MEDS: ZINC OXIDE PASTE 113 GM TUBE TOP SCH ×2 (08:49→21:31)
[2019-08-06] MEDS: ACETAMINOPHEN 325 MG TABLET PO PRN (17:59)
[2019-08-06] MEDS: FLUoxetine 20 MG CAPSULE PO SCH (21:25)
[2019-08-07] MEDS: ACETAMINOPHEN 325 MG TABLET PO PRN (04:55)
[2019-08-07] MEDS: BUDESONIDE 0.5 MG/2 ML NEB RESP TX SCH ×2 (07:44→20:00)
[2019-08-07] MEDS: ASPIRIN CHEW 81 MG TABLET PO SCH (09:31)
[2019-08-07] MEDS: PHENYTOIN 100 MG/4 ML UDCUP PO SCH ×3 (09:31→21:31)
[2019-08-07] MEDS: SCOPOLAMINE 1.5 MG PATCH TRANSDERM SCH (09:31)
[2019-08-07] MEDS: METOPROLOL TARTRATE 25 MG TABLET PO SCH ×2 (09:31→21:31)
[2019-08-07] MEDS: OMEPRAZOLE ODT 20 MG TABLET PEG SCH (09:31)
[2019-08-07] MEDS: ZINC OXIDE PASTE 113 GM TUBE TOP SCH ×2 (09:36→23:18)
[2019-08-07] MEDS: FLUoxetine 20 MG CAPSULE PO SCH (21:31)
[2019-08-08] MEDS: BUDESONIDE 0.5 MG/2 ML NEB RESP TX SCH ×2 (07:16→19:05)
[2019-08-08] MEDS: OMEPRAZOLE ODT 20 MG TABLET PEG SCH (09:28)
[2019-08-08] MEDS: ASPIRIN CHEW 81 MG TABLET PO SCH (09:28)
[2019-08-08] MEDS: ZINC OXIDE PASTE 113 GM TUBE TOP SCH ×2 (09:28→21:25)
[2019-08-08] MEDS: METOPROLOL TARTRATE 25 MG TABLET PO SCH ×2 (09:29→21:14)
[2019-08-08] MEDS: PHENYTOIN 100 MG/4 ML UDCUP PO SCH ×3 (09:29→21:14)
[2019-08-08] MEDS: guaiFENesin 200 MG/10 ML UDCUP PO PRN ×2 (15:54→21:14)
[2019-08-08] MEDS: FLUoxetine 20 MG CAPSULE PO SCH (21:13)
[2019-08-09 06:25] LABS: Basophils # 0.1 10*3/uL (0.0-0.2); Basophils % 0.7 % (0.0-0.8); Eosinophils # 0.4 10*3/uL (0.0-0.87); Eosinophils % 4.8 % (0.00-10.9); Hematocrit 39.1 VOL% (35.7-47.0); Hemoglobin 12.9 GM/DL (12.0-16.0); Immature Granulocytes % 1.1 %; Immature Granulocytes Absolute 0.09 #; Lymphocytes # 1.3 10*3/uL (1.4-4.0); Lymphocytes % 16.3 % (21.3-54.2); Mean Corpuscular Volume 91.4 FL (87-102); Mean Platelet Volume 12.6 FL (9.6-12.0); Monocytes % 6.9 % (1.7-12.7); Neutrophils % 70.2 % (38.7-73.9); Platelet Count 203 T/CUMM (130-400); Red Blood Count 4.28 MC/CUMM (3.8-5.5); Red Cell Distribution Width 12.6 % (9.3-17.3); White Blood Count 8.1 T/CUMM (4-12)
[2019-08-09 06:43] LABS: Calcium 9.6 MG/DL (8.5-10.1); Osmolality,Calculated 270.2 MOS/KG (273-304)
[2019-08-09] MEDS: BUDESONIDE 0.5 MG/2 ML NEB RESP TX SCH ×2 (07:30→19:24)
[2019-08-09] MEDS: OMEPRAZOLE ODT 20 MG TABLET PEG SCH (10:08)
[2019-08-09] MEDS: guaiFENesin 200 MG/10 ML UDCUP PO PRN (10:08)
[2019-08-09] MEDS: PHENYTOIN 100 MG/4 ML UDCUP PO SCH ×3 (10:08→21:25)
[2019-08-09] MEDS: METOPROLOL TARTRATE 25 MG TABLET PO SCH ×2 (10:09→21:25)
[2019-08-09] MEDS: ASPIRIN CHEW 81 MG TABLET PO SCH (10:09)
[2019-08-09] MEDS: ZINC OXIDE PASTE 113 GM TUBE TOP SCH ×2 (10:09→21:26)
[2019-08-09] MEDS ORDERED: SKIN HEALING OINT (AQUAPHOR) 50 GM TUBE TOP PRN (14:29)
[2019-08-09] MEDS ORDERED: ALBUTEROL 2.5 MG/3 ML NEB RESP TX ONE (14:30)
[2019-08-09] MEDS ORDERED: CLORAZEPATE 3.75 MG TABLET PO SCH (15:00)
[2019-08-09] MEDS: SERTRALINE 25 MG TABLET PEG SCH (21:25)
[2019-08-10] MEDS: BUDESONIDE 0.5 MG/2 ML NEB RESP TX SCH ×2 (07:21→19:17)
[2019-08-10] MEDS: PHENYTOIN 100 MG/4 ML UDCUP PO SCH ×3 (09:31→21:03)
[2019-08-10] MEDS: METOPROLOL TARTRATE 25 MG TABLET PO SCH ×2 (09:31→21:03)
[2019-08-10] MEDS: OMEPRAZOLE ODT 20 MG TABLET PEG SCH (09:31)
[2019-08-10] MEDS: ASPIRIN CHEW 81 MG TABLET PO SCH (09:31)
[2019-08-10] MEDS: SCOPOLAMINE 1.5 MG PATCH TRANSDERM SCH (09:32)
[2019-08-10] MEDS: ZINC OXIDE PASTE 113 GM TUBE TOP SCH ×2 (10:17→21:05)
[2019-08-10] MEDS ORDERED: HALOPERIDOL 5 MG/ML AMP IM ONE (13:12)
[2019-08-10] MEDS: SERTRALINE 25 MG TABLET PEG SCH (21:04)
[2019-08-11] MEDS: ACETAMINOPHEN 325 MG TABLET PO PRN ×3 (05:07→21:07)
[2019-08-11] MEDS: BUDESONIDE 0.5 MG/2 ML NEB RESP TX SCH ×2 (07:45→19:11)
[2019-08-11] MEDS: ASPIRIN CHEW 81 MG TABLET PO SCH (08:46)
[2019-08-11] MEDS: ZINC OXIDE PASTE 113 GM TUBE TOP SCH ×2 (08:46→21:08)
[2019-08-11] MEDS: PHENYTOIN 100 MG/4 ML UDCUP PO SCH ×3 (08:47→21:07)
[2019-08-11] MEDS: OMEPRAZOLE ODT 20 MG TABLET PEG SCH (08:47)
[2019-08-11] MEDS: METOPROLOL TARTRATE 25 MG TABLET PO SCH ×2 (08:47→21:07)
[2019-08-11] MEDS ORDERED: METOPROLOL TARTRATE 25 MG TABLET PO ONE (09:30)
[2019-08-11 09:39] LABS: Basophils # 0.1 10*3/uL (0.0-0.2); Basophils % 0.7 % (0.0-0.8); Eosinophils # 0.2 10*3/uL (0.0-0.87); Eosinophils % 1.7 % (0.00-10.9); Hematocrit 39.9 VOL% (35.7-47.0); Hemoglobin 12.7 GM/DL (12.0-16.0); Immature Granulocytes Absolute 0.12 #; Lymphocytes # 1.3 10*3/uL (1.4-4.0); Lymphocytes % 10.9 % (21.3-54.2); Mean Corpuscular HGB Conc 31.8 GM/DL (32-36); Mean Corpuscular Volume 94.3 FL (87-102); Mean Platelet Volume 11.9 FL (9.6-12.0); Monocytes % 7.5 % (1.7-12.7); Neutrophils % 78.2 % (38.7-73.9); Platelet Count 295 T/CUMM (130-400); Red Blood Count 4.23 MC/CUMM (3.8-5.5); Red Cell Distribution Width 12.7 % (9.3-17.3); White Blood Count 12.1 T/CUMM (4-12)
[2019-08-11 09:56] LABS: Hypochromasia 1+; Platelet Estimate Adequate
[2019-08-11 09:58] LABS: Alanine Aminotransferase 48 U/L (13-56); Alkaline Phosphatase 235 U/L (45-117); Aspartate Amino Transferase 44 U/L (0-37); Bilirubin,Total < 0.39 MG/DL (0.2-1.0); Blood Urea Nitrogen 15 MG/DL (7-18); Calcium 9.8 MG/DL (8.5-10.1); Estimated Glom Filtration Rate 122 ML/MIN; Glucose 174 MG/DL (74-106); Osmolality,Calculated 270.4 MOS/KG (273-304); Total Protein 7.5 G/DL (6.4-8.3)
[2019-08-11] MEDS: SERTRALINE 25 MG TABLET PEG SCH (21:07)
[2019-08-12 05:31] LABS: Basophils # 0.1 10*3/uL (0.0-0.2); Basophils % 0.9 % (0.0-0.8); Eosinophils # 0.5 10*3/uL (0.0-0.87); Eosinophils % 5.5 % (0.00-10.9); Hematocrit 39.9 VOL% (35.7-47.0); Hemoglobin 12.7 GM/DL (12.0-16.0); Immature Granulocytes % 1.3 %; Immature Granulocytes Absolute 0.11 #; Lymphocytes # 1.8 10*3/uL (1.4-4.0); Lymphocytes % 20.9 % (21.3-54.2); Mean Corpuscular HGB Conc 31.8 GM/DL (32-36); Mean Corpuscular Volume 95.2 FL (87-102); Mean Platelet Volume 11.4 FL (9.6-12.0); Monocytes % 9.6 % (1.7-12.7); Neutrophils % 61.8 % (38.7-73.9); Platelet Count 311 T/CUMM (130-400); Red Blood Count 4.19 MC/CUMM (3.8-5.5); Red Cell Distribution Width 13.2 % (9.3-17.3); White Blood Count 8.6 T/CUMM (4-12)
[2019-08-12 05:53] LABS: Albumin 2.8 G/DL (3.4-5.0); Bilirubin,Total 0.6 MG/DL (0.2-1.0); Calcium 9.6 MG/DL (8.5-10.1); Total Protein 7.2 G/DL (6.4-8.3)
[2019-08-12] MEDS: BUDESONIDE 0.5 MG/2 ML NEB RESP TX SCH ×2 (07:17→19:48)
[2019-08-12] MEDS: PHENYTOIN 100 MG/4 ML UDCUP PO SCH ×3 (09:01→20:37)
[2019-08-12] MEDS: ZINC OXIDE PASTE 113 GM TUBE TOP SCH ×2 (09:01→20:38)
[2019-08-12] MEDS: OMEPRAZOLE ODT 20 MG TABLET PEG SCH (09:01)
[2019-08-12] MEDS: ASPIRIN CHEW 81 MG TABLET PO SCH (09:01)
[2019-08-12] MEDS: METOPROLOL TARTRATE 25 MG TABLET PO SCH ×2 (09:01→20:37)
[2019-08-12] MEDS ORDERED: VANCOMYCIN INJ 2,000 MG in SODIUM CHLORIDE 0.9% 500 ML IV ONE (12:00)
[2019-08-12] MEDS: MEROPENEM 500 MG in SODIUM CHLORIDE 0.9% 100 ML IV SCH ×2 (16:24→20:33)
[2019-08-12] MEDS: ALBUTEROL/IPRATROPIUM 3 ML NEB RESP TX PRN (19:48)
[2019-08-12] MEDS: SERTRALINE 25 MG TABLET PEG SCH (20:37)
[2019-08-12] MEDS: ACETAMINOPHEN 325 MG TABLET PO PRN (22:37)
[2019-08-13] MEDS: MEROPENEM 500 MG in SODIUM CHLORIDE 0.9% 100 ML IV SCH ×4 (03:19→21:31)
[2019-08-13] MEDS: BUDESONIDE 0.5 MG/2 ML NEB RESP TX SCH ×2 (06:56→19:10)
[2019-08-13] MEDS: ASPIRIN CHEW 81 MG TABLET PO SCH (09:17)
[2019-08-13] MEDS: PHENYTOIN 100 MG/4 ML UDCUP PO SCH ×3 (09:17→21:34)
[2019-08-13] MEDS: METOPROLOL TARTRATE 25 MG TABLET PO SCH ×2 (09:17→21:33)
[2019-08-13] MEDS: ZINC OXIDE PASTE 113 GM TUBE TOP SCH ×2 (09:17→21:34)
[2019-08-13] MEDS: VANCOMYCIN INJ 1,500 MG in SODIUM CHLORIDE 0.9% 500 ML IV SCH (09:17)
[2019-08-13] MEDS: SCOPOLAMINE 1.5 MG PATCH TRANSDERM SCH (09:17)
[2019-08-13] MEDS: OMEPRAZOLE ODT 20 MG TABLET PEG SCH (09:17)
[2019-08-13] MEDS: ACETAMINOPHEN 325 MG TABLET PO PRN (21:32)
[2019-08-13] MEDS: SERTRALINE 25 MG TABLET PEG SCH (21:33)
[2019-08-14] MEDS: MEROPENEM 500 MG in SODIUM CHLORIDE 0.9% 100 ML IV SCH ×4 (03:37→21:15)
[2019-08-14] MEDS: VANCOMYCIN INJ 1,500 MG in SODIUM CHLORIDE 0.9% 500 ML IV SCH ×2 (04:06→22:13)
[2019-08-14 05:47] LABS: Calcium 9.5 MG/DL (8.5-10.1); Osmolality,Calculated 277.7 MOS/KG (273-304)
[2019-08-14 07:22] LABS: Basophils # 0.1 10*3/uL (0.0-0.2); Basophils % 0.7 % (0.0-0.8); Eosinophils # 0.6 10*3/uL (0.0-0.87); Eosinophils % 7.1 % (0.00-10.9); Hemoglobin 11.5 GM/DL (12.0-16.0); Immature Granulocytes % 1.2 %; Lymphocytes # 1.3 10*3/uL (1.4-4.0); Lymphocytes % 16.1 % (21.3-54.2); Mean Corpuscular HGB Conc 31.1 GM/DL (32-36); Mean Corpuscular Volume 96.1 FL (87-102); Mean Platelet Volume 11.2 FL (9.6-12.0); Monocytes % 9.1 % (1.7-12.7); Neutrophils % 65.8 % (38.7-73.9); Platelet Count 282 T/CUMM (130-400); Red Blood Count 3.85 MC/CUMM (3.8-5.5); Red Cell Distribution Width 13.2 % (9.3-17.3); White Blood Count 8.3 T/CUMM (4-12)
[2019-08-14] MEDS: BUDESONIDE 0.5 MG/2 ML NEB RESP TX SCH ×2 (07:29→19:03)
[2019-08-14] MEDS: ZINC OXIDE PASTE 113 GM TUBE TOP SCH ×2 (08:33→21:18)
[2019-08-14] MEDS: ASPIRIN CHEW 81 MG TABLET PO SCH (08:33)
[2019-08-14] MEDS: PHENYTOIN 100 MG/4 ML UDCUP PO SCH ×3 (08:33→21:18)
[2019-08-14] MEDS: OMEPRAZOLE ODT 20 MG TABLET PEG SCH (08:33)
[2019-08-14] MEDS: METOPROLOL TARTRATE 25 MG TABLET PO SCH ×2 (08:33→21:18)
[2019-08-14] MEDS: SERTRALINE 25 MG TABLET PEG SCH (21:18)
[2019-08-15] MEDS: VANCOMYCIN INJ 1,500 MG in SODIUM CHLORIDE 0.9% 500 ML IV SCH ×3 (02:06→21:48)
[2019-08-15] MEDS: MEROPENEM 500 MG in SODIUM CHLORIDE 0.9% 100 ML IV SCH ×4 (03:22→20:23)
[2019-08-15 05:03] LABS: Basophils # 0.1 10*3/uL (0.0-0.2); Basophils % 0.9 % (0.0-0.8); Eosinophils # 0.5 10*3/uL (0.0-0.87); Eosinophils % 6.6 % (0.00-10.9); Hematocrit 37.6 VOL% (35.7-47.0); Immature Granulocytes % 1.2 %; Immature Granulocytes Absolute 0.08 #; Lymphocytes # 1.1 10*3/uL (1.4-4.0); Mean Corpuscular HGB Conc 31.9 GM/DL (32-36); Mean Corpuscular Volume 94.2 FL (87-102); Mean Platelet Volume 11.5 FL (9.6-12.0); Monocytes % 9.1 % (1.7-12.7); Neutrophils % 66.2 % (38.7-73.9); Platelet Count 261 T/CUMM (130-400); Red Blood Count 3.99 MC/CUMM (3.8-5.5)
[2019-08-15 05:19] LABS: Calcium 9.1 MG/DL (8.5-10.1); Osmolality,Calculated 279.5 MOS/KG (273-304)
[2019-08-15] MEDS: BUDESONIDE 0.5 MG/2 ML NEB RESP TX SCH ×2 (06:53→19:15)
[2019-08-15] MEDS: OMEPRAZOLE ODT 20 MG TABLET PEG SCH (09:12)
[2019-08-15] MEDS: PHENYTOIN 100 MG/4 ML UDCUP PO SCH ×3 (09:12→20:23)
[2019-08-15] MEDS: ASPIRIN CHEW 81 MG TABLET PO SCH (09:13)
[2019-08-15] MEDS: METOPROLOL TARTRATE 25 MG TABLET PO SCH ×2 (09:13→20:22)
[2019-08-15] MEDS: ZINC OXIDE PASTE 113 GM TUBE TOP SCH ×2 (09:21→20:24)
[2019-08-15] MEDS: SERTRALINE 25 MG TABLET PEG SCH (20:22)
[2019-08-16] MEDS: MEROPENEM 500 MG in SODIUM CHLORIDE 0.9% 100 ML IV SCH ×4 (03:08→21:09)
[2019-08-16] MEDS: BUDESONIDE 0.5 MG/2 ML NEB RESP TX SCH ×2 (07:41→19:27)
[2019-08-16] MEDS: SCOPOLAMINE 1.5 MG PATCH TRANSDERM SCH (09:03)
[2019-08-16] MEDS: PHENYTOIN 100 MG/4 ML UDCUP PO SCH ×3 (09:03→21:01)
[2019-08-16] MEDS: METOPROLOL TARTRATE 25 MG TABLET PO SCH ×2 (09:04→21:00)
[2019-08-16] MEDS: ASPIRIN CHEW 81 MG TABLET PO SCH (09:04)
[2019-08-16] MEDS: OMEPRAZOLE ODT 20 MG TABLET PEG SCH (09:04)
[2019-08-16] MEDS: ZINC OXIDE PASTE 113 GM TUBE TOP SCH ×2 (09:05→21:01)
[2019-08-16] MEDS: VANCOMYCIN INJ 1,500 MG in SODIUM CHLORIDE 0.9% 500 ML IV SCH ×2 (11:57→22:20)
[2019-08-16] MEDS: ACETAMINOPHEN 325 MG TABLET PO PRN (16:23)
[2019-08-16] MEDS: SERTRALINE 25 MG TABLET PEG SCH (21:01)
[2019-08-17] MEDS: ACETAMINOPHEN 325 MG TABLET PO PRN (01:10)
[2019-08-17] MEDS: MEROPENEM 500 MG in SODIUM CHLORIDE 0.9% 100 ML IV SCH ×4 (03:13→20:41)
[2019-08-17] MEDS: BUDESONIDE 0.5 MG/2 ML NEB RESP TX SCH ×2 (07:23→19:55)
[2019-08-17 08:25] LABS: ABG Base Excess 2.7 MMOL/L (-2.5-2.5); ABG HCO3 26.9 MMOL/L (20-26); ABG Oxygen Saturation 98.7 % (95-100); ABG PCO2 36.5 MM HG (35-48); ABG PH 7.466 (7.35-7.45); ABG TCO2 23.3 MMOL/L (23-27)
[2019-08-17] MEDS ORDERED: LEVALBUTEROL 1.25 MG/3 ML NEB RESP TX ONE (08:30)
[2019-08-17] MEDS: METOPROLOL TARTRATE 25 MG TABLET PO SCH ×2 (12:38→20:40)
[2019-08-17] MEDS: ASPIRIN CHEW 81 MG TABLET PO SCH (12:38)
[2019-08-17] MEDS: OMEPRAZOLE ODT 20 MG TABLET PEG SCH (12:38)
[2019-08-17] MEDS: PHENYTOIN 100 MG/4 ML UDCUP PO SCH ×3 (12:38→20:40)
[2019-08-17] MEDS: VANCOMYCIN INJ 1,500 MG in SODIUM CHLORIDE 0.9% 500 ML IV SCH ×2 (13:03→22:40)
[2019-08-17] MEDS: ZINC OXIDE PASTE 113 GM TUBE TOP SCH ×2 (13:06→20:50)
[2019-08-17] MEDS: guaiFENesin 200 MG/10 ML UDCUP PO PRN ×2 (14:44→20:40)
[2019-08-17] MEDS: SERTRALINE 25 MG TABLET PEG SCH (20:40)
[2019-08-18] MEDS: MEROPENEM 500 MG in SODIUM CHLORIDE 0.9% 100 ML IV SCH ×4 (02:34→21:37)
[2019-08-18] MEDS: ACETAMINOPHEN 325 MG TABLET PO PRN (02:35)
[2019-08-18] MEDS: guaiFENesin 200 MG/10 ML UDCUP PO PRN (02:35)
[2019-08-18 05:29] LABS: Basophils % 0.8 % (0.0-0.8); Eosinophils # 0.2 10*3/uL (0.0-0.87); Eosinophils % 5.2 % (0.00-10.9); Hematocrit 36.2 VOL% (35.7-47.0); Hemoglobin 11.5 GM/DL (12.0-16.0); Immature Granulocytes % 1.1 %; Immature Granulocytes Absolute 0.04 #; Lymphocytes # 0.8 10*3/uL (1.4-4.0); Lymphocytes % 20.8 % (21.3-54.2); Mean Corpuscular HGB Conc 31.8 GM/DL (32-36); Mean Platelet Volume 11.1 FL (9.6-12.0); Monocytes % 13.9 % (1.7-12.7); Neutrophils % 58.2 % (38.7-73.9); Platelet Count 186 T/CUMM (130-400); Red Blood Count 3.85 MC/CUMM (3.8-5.5); Red Cell Distribution Width 13.5 % (9.3-17.3); White Blood Count 3.7 T/CUMM (4-12)
[2019-08-18 05:50] LABS: Calcium 8.9 MG/DL (8.5-10.1); Osmolality,Calculated 277.7 MOS/KG (273-304)
[2019-08-18 05:54] LABS: Prealbumin 15.8 MG/DL (20-40)
[2019-08-18] MEDS: BUDESONIDE 0.5 MG/2 ML NEB RESP TX SCH ×2 (07:58→20:14)
[2019-08-18] MEDS: METOPROLOL TARTRATE 25 MG TABLET PO SCH ×2 (09:04→21:36)
[2019-08-18] MEDS: OMEPRAZOLE ODT 20 MG TABLET PEG SCH (09:04)
[2019-08-18] MEDS: ASPIRIN CHEW 81 MG TABLET PO SCH (09:04)
[2019-08-18] MEDS: PHENYTOIN 100 MG/4 ML UDCUP PO SCH ×3 (09:04→21:36)
[2019-08-18 11:23] LABS: Rheumatoid Factor < 15 IU/ML (<15)
[2019-08-18] MEDS: ZINC OXIDE PASTE 113 GM TUBE TOP SCH ×2 (11:58→21:36)
[2019-08-18] MEDS: VANCOMYCIN INJ 1,500 MG in SODIUM CHLORIDE 0.9% 500 ML IV SCH ×2 (11:58→23:28)
[2019-08-18] MEDS: MICAFUNGIN 100 MG in SODIUM CHLORIDE 0.9% 100 ML IV SCH (14:52)
[2019-08-18] MEDS: ALBUTEROL/IPRATROPIUM 3 ML NEB RESP TX PRN (20:14)
[2019-08-18] MEDS: SERTRALINE 25 MG TABLET PEG SCH (21:37)
[2019-08-19] MEDS: MEROPENEM 500 MG in SODIUM CHLORIDE 0.9% 100 ML IV SCH ×2 (02:50→10:01)
[2019-08-19 05:34] LABS: Basophils % 0.2 % (0.0-0.8); Eosinophils # 0.3 10*3/uL (0.0-0.87); Eosinophils % 6.5 % (0.00-10.9); Hematocrit 33.6 VOL% (35.7-47.0); Hemoglobin 10.9 GM/DL (12.0-16.0); Immature Granulocytes % 0.6 %; Immature Granulocytes Absolute 0.03 #; Lymphocytes # 0.8 10*3/uL (1.4-4.0); Lymphocytes % 16.2 % (21.3-54.2); Mean Corpuscular HGB Conc 32.4 GM/DL (32-36); Mean Corpuscular Volume 91.6 FL (87-102); Mean Platelet Volume 11.9 FL (9.6-12.0); Neutrophils % 67.5 % (38.7-73.9); Platelet Count 151 T/CUMM (130-400); Red Blood Count 3.67 MC/CUMM (3.8-5.5); Red Cell Distribution Width 12.7 % (9.3-17.3); White Blood Count 4.9 T/CUMM (4-12)
[2019-08-19 05:43] LABS: Calcium 8.7 MG/DL (8.5-10.1)
[2019-08-19] MEDS: BUDESONIDE 0.5 MG/2 ML NEB RESP TX SCH ×2 (07:09→19:40)
[2019-08-19] MEDS ORDERED: OSELTAMIVIR 6 MG/ML 60 ML/BOTTLE PO SCH (09:30)
[2019-08-19] MEDS: METOPROLOL TARTRATE 25 MG TABLET PO SCH (09:42)
[2019-08-19] MEDS: OMEPRAZOLE ODT 20 MG TABLET PEG SCH (09:42)
[2019-08-19] MEDS: ASPIRIN CHEW 81 MG TABLET PO SCH (09:42)
[2019-08-19] MEDS: PHENYTOIN 100 MG/4 ML UDCUP PO SCH ×3 (09:43→21:26)
[2019-08-19] MEDS: SCOPOLAMINE 1.5 MG PATCH TRANSDERM SCH (09:43)
[2019-08-19] MEDS: ZINC OXIDE PASTE 113 GM TUBE TOP SCH ×2 (09:51→21:27)
[2019-08-19] MEDS: MICAFUNGIN 100 MG in SODIUM CHLORIDE 0.9% 100 ML IV SCH (11:38)
[2019-08-19] MEDS: ALBUTEROL/IPRATROPIUM 3 ML NEB RESP TX PRN (19:40)
[2019-08-19] MEDS: SERTRALINE 25 MG TABLET PEG SCH (21:26)
[2019-08-19] MEDS: METOPROLOL TARTRATE 100 MG TABLET PEG SCH (21:26)
[2019-08-20 06:57] LABS: Basophils % 0.2 % (0.0-0.8); Eosinophils # 0.3 10*3/uL (0.0-0.87); Eosinophils % 5.9 % (0.00-10.9); Hematocrit 35.9 VOL% (35.7-47.0); Hemoglobin 12.2 GM/DL (12.0-16.0); Immature Granulocytes % 0.5 %; Immature Granulocytes Absolute 0.02 #; Lymphocytes # 1.1 10*3/uL (1.4-4.0); Mean Corpuscular Volume 89.8 FL (87-102); Mean Platelet Volume 12.5 FL (9.6-12.0); Monocytes % 10.4 % (1.7-12.7); Platelet Count 143 T/CUMM (130-400); Red Cell Distribution Width 12.4 % (9.3-17.3); White Blood Count 4.4 T/CUMM (4-12)
[2019-08-20 07:18] LABS: Osmolality,Calculated 274.8 MOS/KG (273-304)
[2019-08-20] MEDS: BUDESONIDE 0.5 MG/2 ML NEB RESP TX SCH ×2 (07:39→19:53)
[2019-08-20] MEDS: PHENYTOIN 100 MG/4 ML UDCUP PO SCH ×3 (09:09→20:55)
[2019-08-20] MEDS: METOPROLOL TARTRATE 100 MG TABLET PEG SCH ×2 (09:09→20:55)
[2019-08-20] MEDS: ASPIRIN CHEW 81 MG TABLET PO SCH (09:09)
[2019-08-20] MEDS: ZINC OXIDE PASTE 113 GM TUBE TOP SCH ×2 (09:10→20:56)
[2019-08-20] MEDS: SERTRALINE 25 MG TABLET PEG SCH (20:56)
[2019-08-21] MEDS: BUDESONIDE 0.5 MG/2 ML NEB RESP TX SCH ×2 (07:22→19:42)
[2019-08-21] MEDS: METOPROLOL TARTRATE 100 MG TABLET PEG SCH ×2 (09:19→21:32)
[2019-08-21] MEDS: PHENYTOIN 100 MG/4 ML UDCUP PO SCH ×3 (09:19→21:32)
[2019-08-21] MEDS: ASPIRIN CHEW 81 MG TABLET PO SCH (09:19)
[2019-08-21] MEDS: ZINC OXIDE PASTE 113 GM TUBE TOP SCH ×2 (09:20→21:33)
[2019-08-21] MEDS: SERTRALINE 25 MG TABLET PEG SCH (21:32)
[2019-08-22 06:03] LABS: Prealbumin 18.3 MG/DL (20-40)
[2019-08-22] MEDS: BUDESONIDE 0.5 MG/2 ML NEB RESP TX SCH ×2 (07:15→19:19)
[2019-08-22] MEDS: PHENYTOIN 100 MG/4 ML UDCUP PO SCH ×3 (09:51→20:59)
[2019-08-22] MEDS: METOPROLOL TARTRATE 100 MG TABLET PEG SCH ×2 (09:51→20:59)
[2019-08-22] MEDS: ASPIRIN CHEW 81 MG TABLET PO SCH (09:52)
[2019-08-22] MEDS: SCOPOLAMINE 1.5 MG PATCH TRANSDERM SCH (09:52)
[2019-08-22] MEDS: ZINC OXIDE PASTE 113 GM TUBE TOP SCH ×2 (09:54→21:21)
[2019-08-22] MEDS: ACETAMINOPHEN 325 MG TABLET PO PRN ×2 (16:54→20:58)
[2019-08-22] MEDS: SERTRALINE 25 MG TABLET PEG SCH (20:59)
[2019-08-23] MEDS: BUDESONIDE 0.5 MG/2 ML NEB RESP TX SCH ×2 (07:16→18:53)
[2019-08-23] MEDS: METOPROLOL TARTRATE 100 MG TABLET PEG SCH ×2 (09:32→20:48)
[2019-08-23] MEDS: ASPIRIN CHEW 81 MG TABLET PO SCH (09:33)
[2019-08-23] MEDS: PHENYTOIN 100 MG/4 ML UDCUP PO SCH ×3 (09:33→20:48)
[2019-08-23] MEDS: ZINC OXIDE PASTE 113 GM TUBE TOP SCH ×2 (09:49→23:38)
[2019-08-23] MEDS ORDERED: PANTOPRAZOLE 40 MG TABLET PO SCH (12:00)
[2019-08-23] MEDS: ACETAMINOPHEN 325 MG TABLET PO PRN ×2 (15:25→20:49)
[2019-08-23] MEDS: SERTRALINE 25 MG TABLET PEG SCH (20:49)
[2019-08-24 05:24] LABS: Basophils % 0.4 % (0.0-0.8); Eosinophils # 0.5 10*3/uL (0.0-0.87); Eosinophils % 5.7 % (0.00-10.9); Hematocrit 39.8 VOL% (35.7-47.0); Hemoglobin 12.9 GM/DL (12.0-16.0); Immature Granulocytes Absolute 0.09 #; Lymphocytes # 2.3 10*3/uL (1.4-4.0); Lymphocytes % 24.2 % (21.3-54.2); Mean Corpuscular HGB Conc 32.4 GM/DL (32-36); Mean Corpuscular Volume 92.6 FL (87-102); Mean Platelet Volume 11.8 FL (9.6-12.0); Monocytes % 8.5 % (1.7-12.7); Neutrophils % 60.2 % (38.7-73.9); Platelet Count 281 T/CUMM (130-400); Red Cell Distribution Width 13.2 % (9.3-17.3); White Blood Count 9.4 T/CUMM (4-12)
[2019-08-24 05:53] LABS: Calcium 10.2 MG/DL (8.5-10.1); Osmolality,Calculated 284.4 MOS/KG (273-304)
[2019-08-24] MEDS: BUDESONIDE 0.5 MG/2 ML NEB RESP TX SCH ×2 (07:42→20:39)
[2019-08-24] MEDS: METOPROLOL TARTRATE 100 MG TABLET PEG SCH ×2 (09:50→20:26)
[2019-08-24] MEDS: PHENYTOIN 100 MG/4 ML UDCUP PO SCH ×3 (09:50→20:26)
[2019-08-24] MEDS: ASPIRIN CHEW 81 MG TABLET PO SCH (09:51)
[2019-08-24] MEDS: ZINC OXIDE PASTE 113 GM TUBE TOP SCH ×2 (09:51→20:27)
[2019-08-24 11:29] LABS: Alanine Aminotransferase 75 U/L (13-56); Albumin 3.1 G/DL (3.4-5.0); Alkaline Phosphatase 265 U/L (45-117); Aspartate Amino Transferase 58 U/L (0-37); Bilirubin,Direct < 0.100 MG/DL (0.0-0.20); Bilirubin,Indirect 0.3 MG/DL (0.0-1.0); Bilirubin,Total < 0.39 MG/DL (0.2-1.0); Total Protein 8.3 G/DL (6.4-8.3)
[2019-08-24] MEDS: SERTRALINE 25 MG TABLET PEG SCH (20:27)
[2019-08-24] MEDS: ACETAMINOPHEN 325 MG TABLET PO PRN (21:45)
[2019-08-25] MEDS: BUDESONIDE 0.5 MG/2 ML NEB RESP TX SCH ×2 (07:42→19:36)
[2019-08-25] MEDS: ASPIRIN CHEW 81 MG TABLET PO SCH (09:51)
[2019-08-25] MEDS: ZINC OXIDE PASTE 113 GM TUBE TOP SCH ×2 (09:51→21:13)
[2019-08-25] MEDS: PHENYTOIN 100 MG/4 ML UDCUP PO SCH ×3 (09:51→21:12)
[2019-08-25] MEDS: METOPROLOL TARTRATE 100 MG TABLET PEG SCH ×2 (09:51→21:12)
[2019-08-25] MEDS: SCOPOLAMINE 1.5 MG PATCH TRANSDERM SCH (09:56)
[2019-08-25] MEDS: ACETAMINOPHEN 325 MG TABLET PO PRN (16:19)
[2019-08-25] MEDS: SERTRALINE 25 MG TABLET PEG SCH (21:13)
[2019-08-26] MEDS: BUDESONIDE 0.5 MG/2 ML NEB RESP TX SCH ×2 (07:32→19:50)
[2019-08-26] MEDS: ACETAMINOPHEN 325 MG TABLET PO PRN ×2 (10:02→14:18)
[2019-08-26] MEDS: PHENYTOIN 100 MG/4 ML UDCUP PO SCH ×3 (10:02→21:33)
[2019-08-26] MEDS: ASPIRIN CHEW 81 MG TABLET PO SCH (10:03)
[2019-08-26] MEDS: METOPROLOL TARTRATE 100 MG TABLET PEG SCH ×2 (10:03→21:34)
[2019-08-26] MEDS: ZINC OXIDE PASTE 113 GM TUBE TOP SCH (10:03)
[2019-08-26 14:54] LABS: PT Patient Result 11.3 SECS (9.6-12.2); Partial Thromboplastin Time 24.2 SECS (20.8-36.0)
[2019-08-26 16:10] LABS: Basophils # 0.1 10*3/uL (0.0-0.2); Basophils % 0.8 % (0.0-0.8); Eosinophils # 0.3 10*3/uL (0.0-0.87); Eosinophils % 2.4 % (0.00-10.9); Hemoglobin 13.2 GM/DL (12.0-16.0); Immature Granulocytes % 0.9 %; Lymphocytes % 25.5 % (21.3-54.2); Mean Corpuscular HGB Conc 32.2 GM/DL (32-36); Mean Corpuscular Volume 92.1 FL (87-102); Mean Platelet Volume 11.6 FL (9.6-12.0); Monocytes % 10.4 % (1.7-12.7); Platelet Count 377 T/CUMM (130-400); Red Blood Count 4.45 MC/CUMM (3.8-5.5); Red Cell Distribution Width 12.9 % (9.3-17.3); White Blood Count 11.6 T/CUMM (4-12)
[2019-08-26 19:11] LABS: Apearance,Urine CLOUDY (Clear); Bacteria,Urine Few /HPF (Few); Bilirubin,Urine Negative (Negative); Blood, Urine Negative (Negative); Glucose,Urine (UA) Negative (Negative); Ketones,Urine 5 mg/dL (Negative); Nitrite,Urine Negative (Negative); Protein,Urine 30 MG/DL; Squamous Epithelial Cell,Urine Few /HPF (0-10); Urine Color Yellow (Yellow); Urine Specific Gravity 1.029 (1.001-1.035); Urine Urobilinogen < 2.0 EU/DL (0.2-1.0)
[2019-08-26 19:32] LABS: Lymphocytes,CSF 100 %; Red Blood Cell,CSF < 1 C/CUMM
[2019-08-26 19:34] LABS: White Blood Cell,CSF 5 C/CUMM
[2019-08-26 19:43] LABS: Appearance,CSF Clear
[2019-08-26] MEDS: SERTRALINE 25 MG TABLET PEG SCH (21:33)
[2019-08-26] MEDS: MEROPENEM 500 MG in SODIUM CHLORIDE 0.9% 100 ML IV SCH (21:33)
[2019-08-27] MEDS: ZINC OXIDE PASTE 113 GM TUBE TOP SCH ×3 (00:57→21:22)
[2019-08-27] MEDS: MEROPENEM 500 MG in SODIUM CHLORIDE 0.9% 100 ML IV SCH ×4 (01:56→21:17)
[2019-08-27 06:13] LABS: Basophils # 0.1 10*3/uL (0.0-0.2); Basophils % 0.7 % (0.0-0.8); Eosinophils # 0.3 10*3/uL (0.0-0.87); Eosinophils % 2.2 % (0.00-10.9); Hematocrit 41.5 VOL% (35.7-47.0); Hemoglobin 13.2 GM/DL (12.0-16.0); Immature Granulocytes % 0.7 %; Immature Granulocytes Absolute 0.09 #; Lymphocytes % 16.6 % (21.3-54.2); Mean Corpuscular HGB Conc 31.8 GM/DL (32-36); Mean Corpuscular Volume 93.3 FL (87-102); Mean Platelet Volume 11.4 FL (9.6-12.0); Monocytes % 9.2 % (1.7-12.7); Neutrophils % 70.6 % (38.7-73.9); Platelet Count 358 T/CUMM (130-400); Red Blood Count 4.45 MC/CUMM (3.8-5.5); White Blood Count 12.3 T/CUMM (4-12)
[2019-08-27 06:50] LABS: Calcium 9.3 MG/DL (8.5-10.1); Osmolality,Calculated 290.1 MOS/KG (273-304)
[2019-08-27] MEDS: BUDESONIDE 0.5 MG/2 ML NEB RESP TX SCH ×2 (07:30→23:17)
[2019-08-27] MEDS: ASPIRIN CHEW 81 MG TABLET PO SCH (08:28)
[2019-08-27] MEDS: PHENYTOIN 100 MG/4 ML UDCUP PO SCH ×3 (08:28→21:20)
[2019-08-27] MEDS: METOPROLOL TARTRATE 100 MG TABLET PEG SCH ×2 (08:28→21:21)
[2019-08-27] MEDS: ACETAMINOPHEN 325 MG TABLET PO PRN (21:20)
[2019-08-27] MEDS: SERTRALINE 25 MG TABLET PEG SCH (21:21)
[2019-08-27] MEDS: ENOXAPARIN 40 MG/0.4 ML SYRINGE SUBCUT SCH (21:22)
[2019-08-28] MEDS: MEROPENEM 500 MG in SODIUM CHLORIDE 0.9% 100 ML IV SCH ×4 (03:59→21:21)
[2019-08-28] MEDS: BUDESONIDE 0.5 MG/2 ML NEB RESP TX SCH ×2 (06:53→19:57)
[2019-08-28] MEDS: SCOPOLAMINE 1.5 MG PATCH TRANSDERM SCH (10:19)
[2019-08-28] MEDS: PHENYTOIN 100 MG/4 ML UDCUP PO SCH ×3 (10:20→21:22)
[2019-08-28] MEDS: METOPROLOL TARTRATE 100 MG TABLET PEG SCH ×2 (10:20→21:22)
[2019-08-28] MEDS: ASPIRIN CHEW 81 MG TABLET PO SCH (10:20)
[2019-08-28] MEDS: ZINC OXIDE PASTE 113 GM TUBE TOP SCH ×2 (10:20→21:22)
[2019-08-28] MEDS: ENOXAPARIN 40 MG/0.4 ML SYRINGE SUBCUT SCH (21:22)
[2019-08-28] MEDS: SERTRALINE 25 MG TABLET PEG SCH (21:22)
[2019-08-29] MEDS: MEROPENEM 500 MG in SODIUM CHLORIDE 0.9% 100 ML IV SCH ×4 (02:35→21:27)
[2019-08-29 04:40] LABS: Prealbumin 24.4 MG/DL (20-40)
[2019-08-29] MEDS: BUDESONIDE 0.5 MG/2 ML NEB RESP TX SCH ×2 (07:56→20:30)
[2019-08-29] MEDS: PHENYTOIN 100 MG/4 ML UDCUP PO SCH ×3 (10:00→21:22)
[2019-08-29] MEDS: ZINC OXIDE PASTE 113 GM TUBE TOP SCH ×2 (10:01→21:27)
[2019-08-29] MEDS: ASPIRIN CHEW 81 MG TABLET PO SCH (10:01)
[2019-08-29] MEDS: METOPROLOL TARTRATE 100 MG TABLET PEG SCH ×2 (10:01→21:32)
[2019-08-29] MEDS: SERTRALINE 25 MG TABLET PEG SCH (21:22)
[2019-08-29] MEDS: ENOXAPARIN 40 MG/0.4 ML SYRINGE SUBCUT SCH (21:22)
[2019-08-30] MEDS: MEROPENEM 500 MG in SODIUM CHLORIDE 0.9% 100 ML IV SCH ×4 (01:58→22:47)
[2019-08-30 07:30] LABS: Basophils # 0.1 10*3/uL (0.0-0.2); Basophils % 0.7 % (0.0-0.8); Eosinophils # 0.5 10*3/uL (0.0-0.87); Hematocrit 39.5 VOL% (35.7-47.0); Hemoglobin 12.2 GM/DL (12.0-16.0); Immature Granulocytes % 0.7 %; Immature Granulocytes Absolute 0.06 #; Lymphocytes # 1.7 10*3/uL (1.4-4.0); Lymphocytes % 20.8 % (21.3-54.2); Mean Corpuscular HGB Conc 30.9 GM/DL (32-36); Mean Corpuscular Volume 97.1 FL (87-102); Mean Platelet Volume 12.3 FL (9.6-12.0); Monocytes % 10.4 % (1.7-12.7); Neutrophils % 61.4 % (38.7-73.9); Red Blood Count 4.07 MC/CUMM (3.8-5.5); Red Cell Distribution Width 13.2 % (9.3-17.3)
[2019-08-30] MEDS: BUDESONIDE 0.5 MG/2 ML NEB RESP TX SCH ×2 (07:30→20:27)
[2019-08-30 07:39] LABS: Platelet Count 238 T/CUMM (130-400)
[2019-08-30] MEDS: PHENYTOIN 100 MG/4 ML UDCUP PO SCH ×3 (09:09→22:17)
[2019-08-30] MEDS: ASPIRIN CHEW 81 MG TABLET PO SCH (09:09)
[2019-08-30] MEDS: METOPROLOL TARTRATE 100 MG TABLET PEG SCH ×2 (09:09→22:17)
[2019-08-30] MEDS: ZINC OXIDE PASTE 113 GM TUBE TOP SCH ×2 (09:09→22:20)
[2019-08-30] MEDS: ENOXAPARIN 40 MG/0.4 ML SYRINGE SUBCUT SCH (22:16)
[2019-08-30] MEDS: SERTRALINE 25 MG TABLET PEG SCH (22:17)
[2019-08-31] MEDS: MEROPENEM 500 MG in SODIUM CHLORIDE 0.9% 100 ML IV SCH ×3 (01:58→14:50)
[2019-08-31] MEDS: BUDESONIDE 0.5 MG/2 ML NEB RESP TX SCH (08:41)
[2019-08-31] MEDS: ASPIRIN CHEW 81 MG TABLET PO SCH (09:57)
[2019-08-31] MEDS: METOPROLOL TARTRATE 100 MG TABLET PEG SCH (09:57)
[2019-08-31] MEDS: PHENYTOIN 100 MG/4 ML UDCUP PO SCH (09:57)
[2019-08-31] MEDS: ZINC OXIDE PASTE 113 GM TUBE TOP SCH (09:57)
[2019-08-31] MEDS: SCOPOLAMINE 1.5 MG PATCH TRANSDERM SCH (09:57)
[2019-08-31 11:48] VITALS: BP 123/69
[2019-08-31 13:56] LABS: M. Tuberculosis PCR Result Negative (Negative); M. Tuberculosis PCR Source CSF
== END 2019-08-31 14:49 | disposition left against medical advice (07) | DRG 3 ==
LOC: N.ED 20:35 → N.EDINP 23:53 → SUPCPDRO 23:53 → SUATTDRO 23:53 → N.EDINP 05-23 00:30 → N.ICU 05-23 00:59 → N.2E 06-22 16:05
PROVIDERS: ADMIT Internal Medicine; ATTEND Internal Medicine